=== PATIENT | female | born 1960 | race American Indian/Alaskan Native ===

== ENCOUNTER 2016-11-18 03:14 | Inpatient (IN) | payer MEDICARE, OTHER ==
[2016-11-18] MEDS ORDERED: Morphine 2 mg/ml ISec IVP STA ×2 (04:04→06:11)
[2016-11-18] MEDS ORDERED: Nitroglycerin 2% Ointment Foilpak UD TOP STA (04:04)
--- NOTE | 2016-11-18 04:04 | ED PDOC ---
Arrival/HPI - General Chief Complaint: Chest Pain Time Seen by Provider: 11/18/16 03:25 Historian: Patient - History of Present Illness Narrative History of Present Illness (Text): 11/18/16 04:03 Aleta Tripp is a 56 year old female, whose past medical history includes hypertension, hypothyroidism, and spinal stenosis, who presents to the ED complaining of chest pain. Patient states she has been experiencing intermittent mid-sternal chest pain for the past 3 days. Patient reports a history of tobacco use but denies any family history of CAD. Patient denies shortness of breath, abdominal pain, nausea, vomiting, back pain, neck pain, headache, dizziness,or any other complaints. PMD: Dr. Gabriel Dover Pain Management: Dr. Ruiz Time/Duration: < week (3 days) Symptom Onset: Gradual Symptom Course: Unchanged, Intermittent Activities at Onset: Light Context: Home Past Medical History - Provider Review Nursing Documentation Reviewed: Yes - Infectious Disease Hx of Infectious Diseases: None - Reproductive Menopause: No - Cardiac Hx Hypertension: Yes - Endocrine/Metabolic Hx Hypothyroidism: Yes - Musculoskeletal/Rheumatological Hx Back Pain: Yes Hx Spinal Stenosis: Yes - Psychiatric Hx Substance Use: No Family/Social History - Physician Review Nursing Documentation Reviewed: Yes Family/Social History: Unknown Family HX Smoking Status: Light Smoker < 10 Cigarettes Daily Hx Alcohol Use: No Hx Substance Use: No Allergies/Home Meds Allergies/Adverse Reactions: Allergies No Known Allergies Allergy (Verified 10/16/15 20:38) Home Medications: Home Meds Medication Instructions Recorded Confirmed Gabapentin [Neurontin] 400 mg PO DAILY 10/16/15 11/18/16 Levothyroxine [Synthroid] 50 mcg PO DAILY 10/16/15 11/18/16 Nebivolol HCl [Bystolic] 2.5 mg PO DAILY 10/16/15 11/18/16 Oxycodone HCl [Roxicodone] 15 mg PO QID 11/18/16 11/18/16 oxyCODONE [oxyCONTIN Extended 40 mg PO BID 11/18/16 11/18/16 Release Tab] Review of Systems - Physician Review All systems were reviewed & negative as marked: Yes - Review of Systems Constitutional: Normal. absent: Fevers Eyes: Normal ENT: Normal Respiratory: Normal. absent: SOB, Cough Cardiovascular: Chest Pain Gastrointestinal: Normal. absent: Abdominal Pain, Diarrhea, Nausea, Vomiting Genitourinary Female: Normal. absent: Dysuria, Frequency, Hematuria, Urine Output Changes Musculoskeletal: Normal. absent: Back Pain, Neck Pain Skin: Normal. absent: Rash Neurological: Normal. absent: Headache, Dizziness Endocrine: Normal Hemo/Lymphatic: Normal Psychiatric: Normal Physical Exam Vital Signs Reviewed: Yes Vital Signs Temp Pulse Resp BP Pulse Ox 11/18/16 03:14 97.9 F 70 18 152/93 H 95 Temperature: Afebrile Blood Pressure: Hypertensive Pulse: Regular Respiratory Rate: Normal Appearance: Positive for: Well-Appearing, Non-Toxic, Comfortable Pain Distress: None Mental Status: Positive for: Alert and Oriented X 3 - Systems Exam Head: Present: Atraumatic, Normocephalic Pupils: Present: PERRL Extroacular Muscles: Present: EOMI Conjunctiva: Present: Normal Mouth: Present: Moist Mucous Membranes Neck: Present: Normal Range of Motion Respiratory/Chest: Present: Clear to Auscultation, Good Air Exchange. No: Respiratory Distress, Accessory Muscle Use Cardiovascular: Present: Regular Rate and Rhythm, Normal S1, S2. No: Murmurs Abdomen: Present: Normal Bowel Sounds. No: Tenderness, Distention, Peritoneal Signs Back: Present: Normal Inspection Upper Extremity: Present: Normal Inspection. No: Cyanosis, Edema Lower Extremity: Present: Normal Inspection. No: Edema Neurological: Present: GCS=15, CN II-XII Intact, Speech Normal Skin: Present: Warm, Dry, Normal Color. No: Rashes Psychiatric: Present: Alert, Oriented x 3, Normal Insight, Normal Concentration Medical Decision Making ED Course and Treatment: 11/18/16 04:03 Impression: 56 year old female c/o chest pain for 3 days. Plan: -- EKG -- CXR -- Labs, cardiac enzymes -- Aspirin -- Nitroglycerin -- Morphine -- Reassess and disposition Progress Notes: Reviewed EKG, NSR at [address]/T wave changes anteriorly. 11/18/16 05:02 Reviewed radiology, CXR shows no acute processes. 11/18/16 06:54 Case was d/w PMD .Accepts pt. to his service. - Lab Interpretations Lab Results: 11/18/16 04:25 11/18/16 04:25 Lab Results 11/18/16 04:25: WBC 18.2 H, RBC 5.22, Hgb 15.0, Hct 44.2, MCV 84.7, MCH 28.7, MCHC 33.9, RDW 13.8, Plt Count 335, MPV 9.7 11/18/16 04:25: Sodium 139, Potassium 4.1, Chloride 96 L, Carbon Dioxide 32, Anion Gap 15, BUN 10, Creatinine 0.6, Est GFR ( Amer) > 60, Est GFR (Non- Af Amer) > 60, Random Glucose 161 H, Calcium 9.9, Total Bilirubin 0.9, AST 26, ALT 35, Alkaline Phosphatase 157 H, Lactate Dehydrogenase 435, Total Creatine Kinase 40, Troponin I < 0.01, Total Protein 8.5 H, Albumin 4.5, Globulin 4.0, Albumin/Globulin Ratio 1.1 11/18/16 04:25: PT 12.4 H, INR 1.15 H, APTT 29.5 I have reviewed the lab results: Yes - RAD Interpretation Radiology Orders: 11/18/16 04:03 CHEST PORTABLE [RAD] Stat 11/18/16 05:32 ABDOMEN COMPLETE [US] Stat Tick Eradicator: ED Physician - EKG Interpretation Interpreted by ED Physician: Yes Type: 12 lead EKG - Medication Orders Current Medication Orders: Metronidazole (Flagyl) 500 mg in 100 mls @ 100 mls/hr IVPB STAT STA PRN Reason: Protocol Stop: 11/18/16 07:45 Ceftriaxone Sodium (Rocephin 1 Gram Ivpb) 100 mls @ 200 mls/hr IV ONCE STA PRN Reason: Protocol Stop: 11/18/16 07:15 Discontinued Medications Aspirin (Aspirin) 325 mg PO ONCE STA Stop: 11/18/16 04:05 Last Admin: 11/18/16 04:30 Dose: 325 mg Morphine Sulfate (Morphine) 2 mg IVP STAT STA Stop: 11/18/16 04:05 Last Admin: 11/18/16 04:30 Dose: 2 mg Morphine Sulfate (Morphine) 2 mg IVP STAT STA Stop: 11/18/16 06:12 Last Admin: 11/18/16 06:26 Dose: 2 mg Nitroglycerin (Nitro-Bid 2% Oint) 1 ea TOP ONCE STA Stop: 11/18/16 04:05 Last Admin: 11/18/16 04:30 Dose: 1 ea Ondansetron HCl (Zofran Inj) Confirm Administered Dose 4 mg .ROUTE .STK-MED ONE Stop: 11/18/16 05:22 Last Admin: 11/18/16 05:21 Dose: 4 mg - Scribe Statement The provider has reviewed the documentation as recorded by the Williamsibe Bhavna Pulido All medical record entries made by the Williamsibfrancy were at my direction and personally dictated by me. I have reviewed the chart and agree that the record accurately reflects my personal performance of the history, physical exam, medical decision making, and the department course for this patient. I have also personally directed, reviewed, and agree with the discharge instructions and disposition. Disposition/Present on Arrival - Present on Arrival Any Indicators Present on Arrival: No History of DVT/PE: No History of Uncontrolled Diabetes: No Urinary Catheter: No History of Decub. Ulcer: No History Surgical Site Infection Following: None - Disposition Have Diagnosis and Disposition been Completed?: Yes Diagnosis: Chest pain, Abdominal pain Disposition: HOSPITALIZED Disposition Time: 06:54 Patient Plan: Admission Condition: STABLE Discharge Instructions (ExitCare): Chest Pain (ED) Forms: [employer] (Arabic)
[2016-11-18 04:41] LABS: HEMATOCRIT 44.2 % (36.0-48.0); MEAN CELL VOLUME 84.7 fl (80.0-105.0); MEAN CORPUSCULAR HEMOGLOBIN 28.7 pg (25.0-35.0); MEAN CORPUSCULAR HGB CONC 33.9 g/dl (31.0-37.0); MEAN PLATELET VOLUME 9.7 fl (7.0-11.0); RED CELL DISTRIBUTION WIDTH 13.8 % (11.5-14.5); WHITE BLOOD COUNT 18.2 10^3/ul (4.5-11.0)
[2016-11-18 04:42] LABS: ALB/GLOB RATIO 1.1 (1.1-1.8); ALKALINE PHOSPHATASE 157 U/L (38-126); ALT/SGPT 35 U/L (7-56); AST/SGOT 26 U/L (14-36); BILIRUBIN,TOTAL 0.9 mg/dL (0.2-1.3); BLOOD UREA NITROGEN 10 mg/dL (7-21); CALCIUM 9.9 mg/dL (8.4-10.5); CARBON DIOXIDE 32 mmol/L (21-33); CHLORIDE 96 mmol/L (98-107); GFR AFRICAN-AMERICAN > 60; GLUCOSE,RANDOM 161 mg/dL (70-110); INR 1.15 (0.93-1.08); PARTIAL THROMBOPLASTIN TIME 29.5 Seconds (23.7-30.8); POTASSIUM 4.1 mmol/L (3.6-5.0); SODIUM 139 mmol/L (132-148); TOTAL PROTEIN 8.5 g/dL (5.8-8.3)
[2016-11-18 04:55] LABS: TROPONIN I < 0.01 ng/mL
[2016-11-18] MEDS ORDERED: cefTRIAXone 1 gm 1 GM/100 ML BAG IV STA (06:46)
[2016-11-18] MEDS ORDERED: metroNIDAZOLE IV 500 mg/100 ml 500 MG/100 ML BAG IVPB STA (06:46)
--- NOTE | 2016-11-18 06:50 | US ---
EXAM: US Abdomen Complete EXAM DATE/TIME: 11/18/2016 5:32 AM CLINICAL HISTORY: 56 years old, female; Pain; Abdominal pain; Generalized; Additional info: Upper abdominal/chest pain TECHNIQUE: Real-time ultrasound of the abdomen (complete) with image documentation. COMPARISON: No relevant prior studies available. FINDINGS: There is a positive sonographic Gonzalez's sign per development technologist. There is a large hyperechoic area within the gallbladder paralleling the wall. There appears to be some degree of shadowing on a few images suggesting possible calcific component. While it could represent a combination of sludge and intermixed tiny calculi, the borders appear more rounded that normally seen with sludge raising the possibility of underlying lesion. There are punctate areas of flow demonstrated. The common bile duct measures 6 mm which is within normal limits. The liver is increased in echogenicity consistent with fatty infiltration. The spleen is normal and measures 10 cm. The pancreas is suboptimally visualized. No hydronephrosis. Both kidneys measure approximately 10 cm in length. The IVC is visualized. The visualized portions of the aorta are normal. IMPRESSION: Hyperechoic material within the gallbladder as discussed above. Differential diagnosis would include sludge ball versus an actual lesion. MRCP may be helpful assuming there are no prior studies for correlation.
[2016-11-18] MEDS ORDERED: HYDROmorphone 1 mg/ml ISec IVP STA (07:09)
[2016-11-18] MEDS ORDERED: HYDROmorphone 1 mg/ml ISec ONE (07:13)
--- NOTE | 2016-11-18 07:59 | RAD ---
HISTORY: pain COMPARISON: No prior. FINDINGS: LUNGS: No active pulmonary disease. PLEURA: No significant pleural effusion identified, no pneumothorax apparent. CARDIOVASCULAR: Normal. OSSEOUS STRUCTURES: Gottlieb rods in thoracolumbar spine. Thoracic dextroscoliosis. VISUALIZED UPPER ABDOMEN: Normal. OTHER FINDINGS: None. IMPRESSION: No active disease.
--- NOTE | 2016-11-18 09:43 | CP.PCM.CON ---
History of Present Illness - History of Present Illness History of Present Illness: General Surgery Consult note for Dr. Sandhu 56F presents with midsternal chest pain for three days. Patient states the pain is located at midsternal, midepigastric, RUQ, and LUQ pain. Patient admits to subjective fever and chills. Vomiting at home, an episode of vomiting in ED. Non -bloody, non-bilious vomiting. Patient admits to nausea. Denies headaches, dizziness, SOB. Last meal was Friday. Positive sonographic Gonzalez's sign on abdominal US with hyperechoic area and gallbladder sludge. Patient is getting HIDA. PMH: HTN, hypothyroidism, spinal stenosis, scoliosis Surgical hx: esdras placement for spinal alignment, hysterectomy Social Hx: smoker FHx: mother has pancreatic cancer, brother from cancer. Allergies: NKDA PMD: Dr. Gabriel Dover Pain Management: Dr. Ruiz Review of Systems - Constitutional Constitutional: As Per HPI Past Patient History - Infectious Disease Hx of Infectious Diseases: None - Past Social History Smoking Status: Light Smoker < 10 Cigarettes Daily - CARDIAC Hx Hypertension: Yes - ENDOCRINE/METABOLIC Hx Hypothyroidism: Yes - MUSCULOSKELETAL/RHEUMATOLOGICAL Hx Back Pain: Yes Hx Spinal Stenosis: Yes - PSYCHIATRIC Hx Substance Use: No - SURGICAL HISTORY Hx Surgeries: Yes Meds Allergies/Adverse Reactions: Allergies Allergy/AdvReac Type Severity Reaction Status Date / Time No Known Allergies Allergy Verified 10/16/15 20:38 - Medications Medications: Current Medications Hydromorphone HCl (Dilaudid) 1 mg IVP Q4H PRN PRN Reason: Pain, severe (8-10) Metronidazole (Flagyl) 500 mg in 100 mls @ 100 mls/hr IVPB Q8 RENEE PRN Reason: Protocol Ceftriaxone Sodium (Rocephin 1 Gram Ivpb) 1 gm in 100 mls @ 100 mls/hr IVPB DAILY RENEE PRN Reason: Protocol Ondansetron HCl (Zofran Inj) 4 mg IVP STAT PRN PRN Reason: Nausea/Vomiting Stop: 11/20/16 08:24 Physical Exam - Constitutional Appears: No Acute Distress - Head Exam Head Exam: NORMAL INSPECTION - Eye Exam Eye Exam: EOMI, Normal appearance - ENT Exam ENT Exam: Mucous Membranes Moist - Respiratory Exam Respiratory Exam: NORMAL BREATHING PATTERN. absent: Accessory Muscle Use, Respiratory Distress - Cardiovascular Exam Cardiovascular Exam: REGULAR RHYTHM. absent: Bradycardia, Tachycardia - GI/Abdominal Exam GI & Abdominal Exam: Guarding, Tenderness. absent: Rebound, Rigid Additional comments: epigastric, RUQ, LUQ pain + gonzalez's sign - Extremities Exam Extremities exam: Positive for: full ROM, normal inspection. Negative for: pedal edema - Neurological Exam Neurological exam: Alert, Normal Gait, Oriented x3 - Psychiatric Exam Psychiatric exam: Normal Affect, Normal Mood - Skin Skin Exam: Dry, Intact, Normal Color, Warm Results - Vital Signs Recent Vital Signs: Last Vital Signs Temp 97.7 F 11/18/16 07:58 Pulse 55 L 11/18/16 07:58 Resp 18 11/18/16 07:58 BP 151/77 H 11/18/16 07:58 Pulse Ox 98 11/18/16 07:58 - Labs Result Diagrams: 11/18/16 04:25 11/18/16 04:25 Assessment & Plan - Assessment and Plan (Free Text) Assessment: 56F presents with cholecystitis. PMH HTN, hypothyroidism, and spinal stenosis Plan: schedule for cholecystectomy f/u AM Labs c/w abx c/w pain management c/w medical management for hypothyroidism f/u HIDA results d/w Dr. Edson Cornejo DO PGY1 - Date & Time Date: 11/18/16 Time: 09:49
[2016-11-18] MEDS: cefTRIAXone 1 gm 1 GM/100 ML BAG IVPB SCH (10:08)
[2016-11-18 11:10] LABS: CHOLESTEROL 189 mg/dL (130-200); LIPASE 42 U/L (23-300)
[2016-11-18 11:12] LABS: BASO # 0.01 K/mm3 (0.0-2.0); GRAN # 21.21 (1.4-6.5); GRAN % 90.6 % (50.0-68.0); HEMATOCRIT 45.4 % (36.0-48.0); LYMPH # 0.9 (1.2-3.4); LYMPH % 3.7 % (22.0-35.0); MEAN CELL VOLUME 84.5 fl (80.0-105.0); MEAN CORPUSCULAR HEMOGLOBIN 28.9 pg (25.0-35.0); MEAN CORPUSCULAR HGB CONC 34.1 g/dl (31.0-37.0); MONO # 1.3 (0.1-0.6); MONO % 5.7 % (1.0-6.0); PLATELET COUNT 348 10^3/uL (120.0-450.0); RED CELL DISTRIBUTION WIDTH 13.8 % (11.5-14.5); WHITE BLOOD COUNT 23.4 10^3/ul (4.5-11.0)
--- NOTE | 2016-11-18 11:22 | CARD ---
APPROVED REPORT EKG Measurement Heart [id number] CT [id number] <Conclusion> Normal sinus rhythm Possible Left atrial enlargement ST & T wave abnormality, consider anterior ischemia Abnormal ECG
[2016-11-18] MEDS: HYDROmorphone 1 mg/ml ISec IVP PRN ×2 (11:23→15:24)
[2016-11-18] MEDS: Sodium Chloride 0.9% 1,000 ML IV SCH (12:00)
[2016-11-18 12:08] LABS: NEUTROPHIL 93 % (50.0-70.0); PLATELET ESTIMATE NORMAL (NORMAL)
[2016-11-18 12:09] LABS: ANISOCYTOSIS SLIGHT
[2016-11-18 13:10] VITALS: BMI 33.2
[2016-11-18] MEDS ORDERED: Pneumococcal 23-Valent Vaccine IM ONE (13:10)
[2016-11-18] MEDS: metroNIDAZOLE IV 500 mg/100 ml 500 MG/100 ML BAG IVPB SCH (13:45)
--- NOTE | 2016-11-18 14:16 | NM ---
PROCEDURE: Nuclear Medicine Hepatobiliary Scan HISTORY: abdominal pain COMPARISON: 11/18/2016 ultrasound TECHNIQUE: 6.8 mCi of technetium 99m Mebrofenin was administered intravenously. Planar images of the abdomen were obtained at 5 min intervals to 60 mins. Delayed images were also obtained. FINDINGS: LIVER: Timely and homogenous uptake. COMMON BILE DUCT: identified at 30 mins. GALLBLADDER: Not identified even on delayed images SMALL BOWEL: Identified at 45 mins. IMPRESSION: The gallbladder is not visualized even on delayed images. The finding is suspicious for acute cholecystitis.
[2016-11-18] MEDS ORDERED: cefTRIAXone (Rocephin) 1 gm Inj ONE (16:24)
[2016-11-18] MEDS ORDERED: Bupivacaine 0.5% Inj(30mL) ONE (16:24)
[2016-11-18] MEDS ORDERED: Iohexol 240 (50 ml) ONE (16:24)
[2016-11-18] MEDS ORDERED: Midazolam 2 MG/2 ML VIAL ONE (19:18)
[2016-11-18] MEDS ORDERED: Succinylcholine 200 mg/10 ml Inj IV ONE (19:18)
[2016-11-18] MEDS ORDERED: Propofol 10 mg/ml Inj (20 ML) ONE (19:18)
[2016-11-18] MEDS ORDERED: Lactated Ringer's 1,000 ML IV SCH ×2 (19:28→22:13)
[2016-11-18] MEDS ORDERED: HYDROmorphone 0.5 mg/0.5 ml ISec IVP PRN ×2 (19:28→22:13)
[2016-11-18] MEDS ORDERED: metroNIDAZOLE IV 500 mg/100 ml 500 MG/100 ML BAG ONE (19:44)
[2016-11-18] MEDS ORDERED: cefTRIAXone (Rocephin) 1 gm Inj IVPB ONE (19:45)
[2016-11-18] MEDS ORDERED: MetroNIDAZOLE 500 mg/100 ml IVPB ONE (19:45)
[2016-11-18] MEDS ORDERED: Bupivacaine 0.5% Inj(30mL) IJ ONE ×2 (19:50→21:45)
[2016-11-18] MEDS ORDERED: Neostigmine Methylsulfate 3mg/3ml Syringe IV ONE (21:21)
--- NOTE | 2016-11-18 22:22 | PCM.SURG1 ---
Surgeon's Initial Post Op Note - Surgeon's Notes Surgeon: Dr. Sandhu Labor Relations Analyst: Dr. Hairston PGY-2, Dr. Cornejo PGY-1 Type of Anesthesia: General Endo Anesthesia Administered By: Dr. Lopez Pre-Operative Diagnosis: acute cholecystitis Operative Findings: necrotic gallbladder. see operative report Post-Operative Diagnosis: see operative report Operation Performed: laparoscopic cholecystectomy converted to open cholecystectomy Specimen/Specimens Removed: gallbladder Estimated Blood Loss: EBL {In ML}: 75 Blood Products Given: N/A Drains Used: Francisco Post-Op Condition: Good Date of Surgery/Procedure: 11/18/16 Time of Surgery/Procedure: 19:44
--- NOTE | 2016-11-18 23:38 | HP ---
HISTORY OF PRESENT ILLNESS: A 56-year-old white female admitted to the hospital with abdominal pain. The patient has a history of back disorder, sees a pain management doctor. She has history of hypertension, hypothyroidism, spinal stenosis. She is on chronic pain medication from Dr. Ruiz. The patient came to the hospital complaining of intermittent chest pain and also abdominal pain. She was found to have gallstones and positive Gonzalez's sign. LABORATORY DATA: On this patient revealed an 18,200 white count with left shift. Her sugar was 161. Her alk phos was 157, slightly elevated. Total protein is elevated at 8.5. Troponins were negative initially. Her ultrasound was read as with hyperechoic material within the gallbladder, sludge versus actual lesion, positive Gonzalez's sign on ultrasound. Chest x-ray was normal. PHYSICAL EXAMINATION VITAL SIGNS: Showed a temperature 97.7, blood pressure 151/77, an O2 sat of 98, respiratory rate is normal. GENERAL: Shows a well-developed, well-nourished white female in minimal distress. HEENT: Essentially within normal limits. Sclerae are clear. SKIN: Non-icteric, non-jaundiced. CHEST: Clear to auscultation and percussion. HEART: Reveals sinus rhythm. ABDOMEN: Minimally tender in the right upper quadrant. There are no masses palpable. EXTREMITIES: Without cyanosis, clubbing, or edema. NEUROLOGIC: Sensation grossly intact. IMPRESSION AND PLAN: Elevated white count. Chest and abdominal pain. Positive Gonzalez's sign. Rule out acute cholecystitis. Continue to follow with serial troponins, first one negative. Dom Dover MD
[2016-11-19] MEDS: Sodium Chloride 0.9% 1,000 ML IV SCH ×7 (00:08→22:57)
[2016-11-19] MEDS: HYDROmorphone 2 mg/ml ISec IVP PRN ×6 (01:19→20:50)
[2016-11-19] MEDS ORDERED: metroNIDAZOLE IV 500 mg in 100 ML IVPB SCH (01:45)
--- NOTE | 2016-11-19 08:01 | CP.PCM.PN ---
Subjective - Date & Time of Evaluation Date of Evaluation: 11/19/16 Time of Evaluation: 07:58 - Subjective Subjective: General Surgery progress note for Dr. Sandhu PT S&E at bedside. Admits to pain. Patient made aware of breakthrough pain order. Patient states she hasn't been able to void since the procedure. Admits to suprapubic pain and right upper quadrant pain. Bladder scan ordered. Placement of farrell if >350 or if Patient cannot void. Objective - Vital Signs/Intake and Output Vital Signs (last 24 hours): Temp Pulse Resp BP Pulse Ox 98.5 F 84 20 153/97 H 92 L 11/19/16 06:00 11/19/16 06:00 11/19/16 06:00 11/19/16 06:00 11/19/16 06:00 Intake and Output: 11/19/16 11/19/16 06:59 18:59 Intake Total 875 Output Total 0 Balance 875 - Medications Medications: Current Medications Acetaminophen (Tylenol 325mg Tab) 975 mg PO Q8H [facility] Last Admin: 11/19/16 05:44 Dose: Not Given Hydromorphone HCl (Dilaudid) 1.5 mg IVP Q3H PRN PRN Reason: Pain, moderate (4-7) Last Admin: 11/19/16 05:46 Dose: 1.5 mg Ceftriaxone Sodium (Rocephin 1 Gram Ivpb) 1 gm in 100 mls @ 100 mls/hr IVPB DAILY [facility] PRN Reason: Protocol Last Admin: 11/18/16 10:08 Dose: Not Given Sodium Chloride (Sodium Chloride 0.9%) 1,000 mls @ 125 mls/hr IV .Q8H [facility] Last Admin: 11/19/16 00:08 Dose: 125 mls/hr Metronidazole (Flagyl) 500 mg in 100 mls @ 100 mls/hr IVPB Q8 RENEE PRN Reason: Protocol Ondansetron HCl (Zofran Inj) 4 mg IVP STAT PRN PRN Reason: Nausea/Vomiting Stop: 11/20/16 08:24 Last Admin: 11/18/16 13:41 Dose: 4 mg Ondansetron HCl (Zofran Inj) 4 mg IVP ONCE PRN PRN Reason: Nausea/Vomiting - Labs Labs: 11/18/16 10:18 PT 12.4 Seconds (9.9-11.8) H 11/18/16 04:25 INR 1.15 (0.93-1.08) H 11/18/16 04:25 APTT 29.5 Seconds (23.7-30.8) 11/18/16 04:25 - Constitutional Appears: No Acute Distress - Head Exam Head Exam: NORMAL INSPECTION - Eye Exam Eye Exam: EOMI, Normal appearance - ENT Exam ENT Exam: Mucous Membranes Moist - Neck Exam Neck Exam: Full ROM, Normal Inspection - Respiratory Exam Respiratory Exam: Clear to Ausculation Bilateral, NORMAL BREATHING PATTERN. absent: Accessory Muscle Use, Respiratory Distress - Cardiovascular Exam Cardiovascular Exam: REGULAR RHYTHM. absent: Bradycardia, Tachycardia - GI/Abdominal Exam GI & Abdominal Exam: Soft, Tenderness Additional comments: yuliana on right site of abdomen. 10cc serosanguinous drainage dressings c/di/i - Extremities Exam Extremities Exam: Full ROM, Normal Inspection. absent: Joint Swelling, Pedal Edema - Neurological Exam Neurological Exam: Alert, Awake, Oriented x3 - Psychiatric Exam Psychiatric exam: Normal Affect, Normal Mood - Skin Skin Exam: Dry, Intact, Normal Color, Warm Assessment and Plan - Assessment and Plan (Free Text) Assessment: 56 F cholecystitis s/p laparoscopic converted to open cholecystectomy Plan: Bladder scan ordered. Placement of farrell if >350 or if Patient cannot void. c/w abx c/w pain management c/w medical management Ceci Cornejo DO PGY1
[2016-11-19] MEDS: metroNIDAZOLE IV 500 mg/100 ml 500 MG/100 ML BAG IVPB SCH ×3 (09:31→21:08)
[2016-11-19 11:55] LABS: BASO # 0.01 K/mm3 (0.0-2.0); GRAN # 21.81 (1.4-6.5); GRAN % 89.3 % (50.0-68.0); HEMATOCRIT 39.6 % (36.0-48.0); LYMPH # 1.1 (1.2-3.4); LYMPH % 4.5 % (22.0-35.0); MEAN CELL VOLUME 84.3 fl (80.0-105.0); MEAN CORPUSCULAR HEMOGLOBIN 28.1 pg (25.0-35.0); MEAN CORPUSCULAR HGB CONC 33.3 g/dl (31.0-37.0); MEAN PLATELET VOLUME 9.7 fl (7.0-11.0); MONO # 1.5 (0.1-0.6); MONO % 6.2 % (1.0-6.0); WHITE BLOOD COUNT 24.5 10^3/ul (4.5-11.0)
[2016-11-19 11:57] LABS: ALB/GLOB RATIO 1.1 (1.1-1.8); ALKALINE PHOSPHATASE 126 U/L (38-126); ALT/SGPT 38 U/L (7-56); AST/SGOT 40 U/L (14-36); BILIRUBIN,TOTAL 0.6 mg/dL (0.2-1.3); BLOOD UREA NITROGEN 14 mg/dL (7-21); CALCIUM 8.7 mg/dL (8.4-10.5); CARBON DIOXIDE 31 mmol/L (21-33); CHLORIDE 102 mmol/L (98-107); GFR AFRICAN-AMERICAN > 60; GLUCOSE,RANDOM 148 mg/dL (70-110); POTASSIUM 3.6 mmol/L (3.6-5.0); SODIUM 140 mmol/L (132-148); TOTAL PROTEIN 6.7 g/dL (5.8-8.3)
[2016-11-19] MEDS: Enoxaparin 40 mg Syringe SC SCH (12:13)
[2016-11-19] MEDS: cefTRIAXone 1 gm 1 GM/100 ML BAG IVPB SCH (12:18)
--- NOTE | 2016-11-19 21:55 | OP ---
PROCEDURE DATE: PREOPERATIVE DIAGNOSIS: Acute cholecystitis. POSTOPERATIVE DIAGNOSIS: Acute cholecystitis. OPERATION PERFORMED: Laparoscopic cholecystectomy, converted to open. DESCRIPTION OF PROCEDURE: In the operating room, the patient was identified by name, name of procedure, laterality, my name and the consent. The patient was moved up because of excruciating pain, right upper quadrant, positive HIDA, with an elevated white count. In the operating room, the patient was identified by name, name of procedure, laterality, my consent and after the successful timeout with the Mohan in place, a midline incision was made by the belly button. The abdomen was entered with a Veress needle followed by the Visiport. was a omentum cake in the right upper quadrant. There was free fluid over the liver and by the liver. A xiphoid 5 and two lateral 5s were placed. The abdomen was then unexplored, there was nothing else was untoward. The omentum was pulled down off the gallbladder, it was a very dense adhesion. Using blunt dissection and the Harmonic under direct vision, the omentum came down with difficulty. The gallbladder was emptied with a Veress needle and there was thick sludge noted, it was dark bile. The gallbladder was necrotic. The Prestige were used to pull up the fundus and eventually the infundibulum, during which time the gallbladder wall was entered and sucked out removing a large amount of sludge. Dissection down towards the triangle was more and more difficult as we went in. Eventually, very dense adhesions were seen posteriorly that could not be easily dissected. There was a swelling there that was probably the cystic duct, although disturbing was a bluish area more medially, which eventually I believe to be a stain from the necrosis. A little bit superior to that was another adhesion density, that was believed to be the cystic artery, multiple manipulations were used to increase the dissection ability; however, these were fruitless. Eventually, we started taking it down from above by using the cautery the gallbladder from liver bed. We were able to come down for the same 2 adhesions that we have seen before and could not easily get around them. Eventually, not being able to dissect, we failed to make progress and I consented to open. A Nemesio incision was made and the Bookwalter was used. The dissection quickly came down to the same issues we had laparoscopically. The superior one was cleaned first and was clearly dissected through an artery that was eventually clipped and divided. The inferior adhesion was in fact the infundibulum just adhesed down and dissection came down to a single structure going to the gallbladder that was clamped, divided, and tied. The area was copiously irrigated and dried. There was a lot of contamination. A Francisco was placed. The abdomen was copiously irrigated and dried. There was nothing untoward. No bleeding. No bile. An incision is closed after the umbilicus was closed under direct vision and closed with 2 layers Vicryl and Prolene. The subcutaneous tissue was closed with Vicryl. Skin was closed with joel. The patient was taken to the recovery room in good condition after the sponge and needle counts were declared correct. Lazaro Sandhu MD
[2016-11-19] MEDS ORDERED: Levothyroxine 125 MCG TAB PO STA (22:09)
[2016-11-19 22:39] LABS: ARTERIAL BLOOD GAS HCO3 31.3 mmol/L (21-28); ARTERIAL BLOOD GAS O2 CAPACITY 20.4 mL/dl (16-24); ARTERIAL BLOOD GAS O2 CONTENT 19.5 ML/dl (15-23); ARTERIAL BLOOD GAS PH 7.45 (7.35-7.45); ARTERIAL BLOOD HGB O2 SAT 92.7 % (95.0-98.0); CARBOXYHEMOGLOBIN 2.2 % (0.5-1.5); HHB 4.3 % (0-5); METHEMOGLOBIN 0.8 % (0.0-3.0)
--- NOTE | 2016-11-20 00:32 | CON ---
DATE: 11/19/2016 LOCATION: The patient was seen in room 266, bed 1. CHIEF COMPLAINT: Positive blood cultures x1 day duration. HISTORY OF PRESENT ILLNESS: This is a 56-year-old female with obesity with a BMI of 34 with chronic back pain syndrome, had back surgery years ago with rods, had scoliosis as a child, history of hypertension, hypothyroidism, history of spinal stenosis, history of hysterectomy, who was admitted with abdominal pain, found to have acute cholecystitis, was taken to the OR yesterday. Blood cultures were done and positive blood cultures of her gram-positive cocci. Infectious disease consultation was requested. The patient denies any fevers, any chills. She was having abdominal pain and no chest pain, shortness of breath, or cough. No fevers and no chills. No nausea or vomiting at this point and no dysuria or frequency. PAST MEDICAL HISTORY: Significant for chronic back pain syndrome, scoliosis, hypertension, hypothyroidism, and spinal stenosis. PAST SURGICAL HISTORY: Significant for surgery in the back many years ago with rods and hardware. The patient also had a hysterectomy. ALLERGIES: THE PATIENT HAS NO KNOWN ALLERGIES TO ANY ANTIBIOTICS. SOCIAL HISTORY: She lives with her daughter. They do have cats for a pet. MEDICATIONS AT HOME: Include the patient to be on Neurontin, gabapentin, oxycodone, Bystolic, levothyroxine, Zanaflex, and oxycodone. PHYSICAL EXAMINATION: GENERAL: She is in bed, answering questions appropriately, nontoxic. VITAL SIGNS: Temperature is 98, she never had any fevers in the entire hospital stay, blood pressure is 160/90, respiratory rate of 20, and heart rate was up to 93. HEENT: Unremarkable. NECK: Supple. LUNGS: Decreased breath sounds. HEART: Normal S1 and S2. ABDOMEN: The patient has a primary dressing and drainage tubes present. No rebound. No guarding. No masses. LABORATORY EXAMINATION: Reveals the patient's white count of 18,000, it is upto 24,000 today, hemoglobin of 15 and platelets of 335. There is 89% granulocytosis and coagulation is noted. Chemistries reveals a BUN of 14, creatinine of 0.7, elevated glucose of 148, and alk phos is 157. Microbiology reveals gram-positive cocci, and it was identified as a coag-negative staph by PNA FISH in one part, the other part reports as a gram-positive cocci, no further identification and the patient also had an ultrasound of the abdomen done, which is noted and there was a positive Gonzalez sign on the ultrasound. The patient also had a HIDA scan done. ASSESSMENT AND PLAN: This is a 56-year-old female with chronic back pain, scoliosis, hypertension, hypothyroidism, spinal stenosis, admitted with sepsis with acute cholecystectomy, status post open cholecystectomy. The patient was admitted with acute cholecystitis now status post open cholecystectomy with postop procedure day #1 with a coag-negative staph bacteremia most consistent with a contamination, currently on Rocephin and Flagyl. We will follow the WBC count. We will order repeat blood cultures, and we will order an HIV because of her age and a hemoglobin A1c also. We will follow closely with you. Pending repeat blood cultures, further identification with a gram-positive cocci, and her current culture, I suspected coag-negative staph, most consistent with a contamination. She has no new back pain and no evidence of infection in the back, and we will follow with WBC count. Dutch Saavedra MD
[2016-11-20] MEDS: HYDROmorphone 2 mg/ml ISec IVP PRN ×7 (00:49→23:46)
--- NOTE | 2016-11-20 01:03 | PN ---
SUBJECTIVE: A 56-year-old white female with history of chronic back pain, on pain management recently admitted to the hospital with acute cholelithiasis and cholecystitis. The patient was taken to the OR by Dr. Sandhu yesterday. She is postop day #1 today. She did have urinary retention. A Mohan catheter was placed. The patient has been encouraged to attempt to void and to walk, ambulate. PHYSICAL EXAMINATION: VITAL SIGNS: Stable. Temperature is 98.5, blood pressure 153/97. LABORATORY DATA: Initial laboratory data on admission had an 18,000 white count, she is 24,500 today with a left shift. The patient is afebrile today. She did have a positive HIDA scan. Liver enzymes are within normal limits. Plan is to ambulate. Continue IV antibiotics eventually to control pain and eventually to discharge home when the patient is ambulatory, passing gas, and able to urinate. Her abdomen was nondistended today, but there was no active bowel sounds. Dom Dover MD
[2016-11-20] MEDS: metroNIDAZOLE IV 500 mg/100 ml 500 MG/100 ML BAG IVPB SCH ×2 (05:15→13:44)
[2016-11-20] MEDS: Sodium Chloride 0.9% 1,000 ML IV SCH ×2 (06:25→15:35)
[2016-11-20 06:29] LABS: BASO # 0.01 K/mm3 (0.0-2.0); GRAN # 20.42 (1.4-6.5); GRAN % 86.6 % (50.0-68.0); HEMATOCRIT 41.8 % (36.0-48.0); LYMPH # 1.8 (1.2-3.4); LYMPH % 7.8 % (22.0-35.0); MEAN CELL VOLUME 84.8 fl (80.0-105.0); MEAN CORPUSCULAR HEMOGLOBIN 28.2 pg (25.0-35.0); MEAN CORPUSCULAR HGB CONC 33.3 g/dl (31.0-37.0); MEAN PLATELET VOLUME 9.7 fl (7.0-11.0); MONO # 1.3 (0.1-0.6); MONO % 5.6 % (1.0-6.0); RED CELL DISTRIBUTION WIDTH 14.5 % (11.5-14.5); WHITE BLOOD COUNT 23.6 10^3/ul (4.5-11.0)
[2016-11-20 06:51] LABS: BLOOD UREA NITROGEN 13 mg/dL (7-21); CALCIUM 8.9 mg/dL (8.4-10.5); CARBON DIOXIDE 29 mmol/L (21-33); CHLORIDE 101 mmol/L (98-107); GFR AFRICAN-AMERICAN > 60; GLUCOSE,RANDOM 123 mg/dL (70-110); MAGNESIUM 2.2 mg/dL (1.7-2.2); POTASSIUM 3.2 mmol/L (3.6-5.0); SODIUM 141 mmol/L (132-148)
[2016-11-20] MEDS ORDERED: Iodixanol 320 MG/ML 100 ML BOTTLE IV ONE (07:21)
--- NOTE | 2016-11-20 07:28 | CP.PCM.PN ---
Subjective - Date & Time of Evaluation Date of Evaluation: 11/20/16 Time of Evaluation: 07:17 - Subjective Subjective: pt is c/o sob is diaphoretic and bp is 189/ /97.pt is on oxycontin 40 mg po bid . has been recieving dilauded for pain . hr is 66. Objective - Vital Signs/Intake and Output Vital Signs (last 24 hours): Temp Pulse Resp BP Pulse Ox 98.4 F 65 20 185/96 H 95 11/20/16 06:00 11/20/16 06:17 11/20/16 06:00 11/20/16 06:17 11/20/16 06:00 Intake and Output: 11/20/16 11/20/16 06:59 18:59 Intake Total 2060 Output Total 1700 Balance 360 - Medications Medications: Current Medications Acetaminophen (Tylenol 325mg Tab) 975 mg PO Q8H [facility] Last Admin: 11/20/16 05:20 Dose: 975 mg Enoxaparin Sodium (Lovenox) 40 mg SC DAILY [facility] PRN Reason: Protocol Last Admin: 11/19/16 12:13 Dose: 40 mg Hydromorphone HCl (Dilaudid) 1.5 mg IVP Q3H PRN PRN Reason: Pain, moderate (4-7) Last Admin: 11/20/16 04:51 Dose: 1.5 mg Ceftriaxone Sodium (Rocephin 1 Gram Ivpb) 1 gm in 100 mls @ 100 mls/hr IVPB DAILY [facility] PRN Reason: Protocol Last Admin: 11/19/16 12:18 Dose: 100 mls/hr Sodium Chloride (Sodium Chloride 0.9%) 1,000 mls @ 125 mls/hr IV .Q8H [facility] Last Admin: 11/20/16 06:25 Dose: Not Given Metronidazole (Flagyl) 500 mg in 100 mls @ 100 mls/hr IVPB Q8 [facility] PRN Reason: Protocol Last Admin: 11/20/16 05:15 Dose: 100 mls/hr Ondansetron HCl (Zofran Inj) 4 mg IVP STAT PRN PRN Reason: Nausea/Vomiting Stop: 11/20/16 08:24 Last Admin: 11/19/16 23:22 Dose: 4 mg - Labs Labs: 11/20/16 06:00 11/20/16 06:00 PT 12.4 Seconds (9.9-11.8) H 11/18/16 04:25 INR 1.15 (0.93-1.08) H 11/18/16 04:25 APTT 29.5 Seconds (23.7-30.8) 11/18/16 04:25 - Constitutional Appears: Other (pt has mild sob .) - Head Exam Head Exam: NORMOCEPHALIC - Eye Exam Eye Exam: Normal appearance - ENT Exam ENT Exam: Mucous Membranes Moist - Neck Exam Neck Exam: Full ROM - Respiratory Exam Respiratory Exam: Clear to Ausculation Bilateral - Cardiovascular Exam Cardiovascular Exam: RRR, +S1, +S2 - GI/Abdominal Exam GI & Abdominal Exam: Soft, Tenderness - Rectal Exam Rectal Exam: Deferred - Neurological Exam Neurological Exam: Alert, Awake, CN II-XII Intact, Oriented x3 - Psychiatric Exam Psychiatric exam: Anxious - Skin Additional comments: fushed Assessment and Plan - Assessment and Plan (Free Text) Assessment: sob post cholycystectomy. htn. Plan: colonide 0.[address] angio PE protocol. ?DRUG withdrawl.
--- NOTE | 2016-11-20 07:36 | CP.PCM.PN ---
Subjective - Date & Time of Evaluation Date of Evaluation: 11/20/16 Time of Evaluation: 07:33 - Subjective Subjective: General Surgery Progress note for Dr. Sandhu PT S&E at bedside. Patient admits to vomiting. Per nursing, patient did not vomit. Voiding trial passed, farrell removed overnight. Patient continues to ask for pain medication. PT denies F/C. admits to nausea. Admits to abdominal pain. Patient states she hasn't ambulated. Encouraged to ambulate to pass gas and have BM. PAtient is told she will continue on clears because she was nauseas with soup. 24HR yuliana output: 25cc, serosanguinous Objective - Vital Signs/Intake and Output Vital Signs (last 24 hours): Temp Pulse Resp BP Pulse Ox 98.4 F 65 20 185/96 H 95 11/20/16 06:00 11/20/16 06:17 11/20/16 06:00 11/20/16 06:17 11/20/16 06:00 Intake and Output: 11/20/16 11/20/16 06:59 18:59 Intake Total 2060 Output Total 1700 Balance 360 - Medications Medications: Current Medications Acetaminophen (Tylenol 325mg Tab) 975 mg PO Q8H [facility] Last Admin: 11/20/16 05:20 Dose: 975 mg Enoxaparin Sodium (Lovenox) 40 mg SC DAILY [facility] PRN Reason: Protocol Last Admin: 11/19/16 12:13 Dose: 40 mg Hydromorphone HCl (Dilaudid) 1.5 mg IVP Q3H PRN PRN Reason: Pain, moderate (4-7) Last Admin: 11/20/16 04:51 Dose: 1.5 mg Ceftriaxone Sodium (Rocephin 1 Gram Ivpb) 1 gm in 100 mls @ 100 mls/hr IVPB DAILY [facility] PRN Reason: Protocol Last Admin: 11/19/16 12:18 Dose: 100 mls/hr Sodium Chloride (Sodium Chloride 0.9%) 1,000 mls @ 125 mls/hr IV .Q8H [facility] Last Admin: 11/20/16 06:25 Dose: Not Given Metronidazole (Flagyl) 500 mg in 100 mls @ 100 mls/hr IVPB Q8 [facility] PRN Reason: Protocol Last Admin: 11/20/16 05:15 Dose: 100 mls/hr Potassium Chloride (Potassium Chloride 20 Meq/100 Ml) 20 meq in 100 mls @ 50 mls/hr IVPB Q2H [facility] Stop: 11/20/16 11:44 Ondansetron HCl (Zofran Inj) 4 mg IVP STAT PRN PRN Reason: Nausea/Vomiting Stop: 11/20/16 08:24 Last Admin: 11/19/16 23:22 Dose: 4 mg - Labs Labs: 11/20/16 06:00 11/20/16 06:00 PT 12.4 Seconds (9.9-11.8) H 11/18/16 04:25 INR 1.15 (0.93-1.08) H 11/18/16 04:25 APTT 29.5 Seconds (23.7-30.8) 11/18/16 04:25 - Constitutional Appears: Non-toxic - Head Exam Head Exam: NORMAL INSPECTION - Eye Exam Eye Exam: EOMI, Normal appearance - ENT Exam ENT Exam: Mucous Membranes Moist - Neck Exam Neck Exam: Full ROM. absent: Tenderness - Respiratory Exam Respiratory Exam: Clear to Ausculation Bilateral, NORMAL BREATHING PATTERN. absent: Accessory Muscle Use, Respiratory Distress - Cardiovascular Exam Cardiovascular Exam: REGULAR RHYTHM. absent: Bradycardia, Tachycardia - GI/Abdominal Exam GI & Abdominal Exam: Soft, Normal Bowel Sounds. absent: Tenderness - Extremities Exam Extremities Exam: Full ROM, Normal Inspection - Neurological Exam Neurological Exam: Alert, Awake, Oriented x3 - Psychiatric Exam Psychiatric exam: Normal Affect, Normal Mood - Skin Skin Exam: Cyanosis, Dry, Intact, Normal Color, Warm Additional comments: incision site c/d/i no erythema, drainage, purulence, or induration Assessment and Plan - Assessment and Plan (Free Text) Assessment: 56 F cholecystitis s/p laparoscopic converted to open cholecystectomy POD#2 Plan: diet CLD c/w abx c/w current pain medication c/w current medical management monitor vitals monitor I/Os monitor yuliana output IS and ambulation monitor diet tolerance d/w Dr. Edson Cornejo, DO PGY1
--- NOTE | 2016-11-20 08:37 | CT ---
PROCEDURE: CT Chest with contrast (Pulmonary Angiogram) HISTORY: r/o pe COMPARISON: None available. TECHNIQUE: Axial computed tomography images were obtained of the chest in the pulmonary arterial phase of enhancement. Coronal and sagittal reformatted images were created and reviewed. Intravenous contrast dose: 100 mL Visipaque Radiation dose: Total exam DLP = 642 mGy-cm. This CT exam was performed using one or more of the following dose reduction techniques: Automated exposure control, adjustment of the mA and/or kV according to patient size, and/or use of iterative reconstruction technique. FINDINGS: PULMONARY ARTERIES: Unremarkable. No central or major segmental pulmonary embolism. Small peripheral subsegmental tiny pulmonary emboli not excluded. Most notable are posterior lobe consolidations atelectasis with or without infiltrate is probable. All peripheral endobronchial lesions cannot be excluded. No extrinsic compression masses or soft tissue pathology suggested Linear pleural/isiah fissural thickening. AORTA: No acute findings. No thoracic aortic aneurysm. LUNGS: Unremarkable. No nodule, mass or pulmonary consolidation. PLEURAL SPACES: Posterior minimal pleural thickening. Minimal pleural effusion. No pneuomothorax. HEART: cardiomegaly. No significant pericardial effusion. Coronary artery calcifications suspect LYMPH NODES: No lymphadenopathy. BONES, CHEST WALL: No fracture or destructive lesion Gottlieb rods in place and scoliosis noted OTHER FINDINGS: Unremarkable. IMPRESSION: No central or major segmental pulmonary emboli. Tiny more peripheral subsegmental emboli not excluded. Bilateral lower lobe consolidation with adjacent pleural thickening and trace pleural effusion. Primarily atelectatic changes with or without infiltrates at each lower lobe is favored. All peripheral and/or bronchial mucous plugs or other filling defects cannot be excluded. Strains a compression defects sting and any atelectasis suggested. Cardiomegaly. No aortic aneurysm. Coronary artery calcifications Scoliosis with Gottlieb esdras
[2016-11-20] MEDS: Levothyroxine 125 MCG TAB PO SCH (09:07)
[2016-11-20] MEDS: Enoxaparin 40 mg Syringe SC SCH (09:07)
[2016-11-20] MEDS: cefTRIAXone 1 gm 1 GM/100 ML BAG IVPB SCH (09:08)
--- NOTE | 2016-11-20 09:51 | CARD ---
APPROVED REPORT EKG Measurement Heart [id number] <Conclusion> Sinus bradycardia Possible Left atrial enlargement RSR' or QR pattern in V1 suggests right ventricular conduction delay Abnormal ECG
[2016-11-20] MEDS ORDERED: NEBIVOLOL HCL 10 MG PO SCH (10:00)
--- NOTE | 2016-11-20 11:25 | RAD ---
HISTORY: abdominal distention COMPARISON: No prior. FINDINGS: BOWEL: Normal. No obstruction. No free air. BONES: Scoliosis. Spinal rods. OTHER FINDINGS: There is contrast in the bladder and left renal collecting system. IMPRESSION: No active disease.
[2016-11-20] MEDS: POLYETHYLENE GLYCOL 3350 17 GM/Dose PACKET PO SCH (12:38)
[2016-11-20] MEDS: NEBIVOLOL HCL 10 MG PO SCH (12:38)
--- NOTE | 2016-11-20 13:24 | PN ---
DATE: SUBJECTIVE: This is a 56-year-old white female admitted in the hospital with acute cholecystitis and cholelithiasis. The patient is status post cholecystectomy. The patient still has no bowel sounds. Has not had a bowel movement. No flatus. She is passing the urine. She has some shortness of breath. Some diaphoresis last night. She was sent for a CT angiogram which showed only bilateral atelectasis. No evidence of PE. The patient has been encouraged to do some incentive spirometry, Duoneb and to ambulate. PHYSICAL EXAMINATION: HEART: Regular sinus rhythm. CHEST: Clear to auscultation and percussion. ABDOMEN: Distended. Bowel sounds are absent. LABORATORY DATA: The patient did have a markedly elevated white count which is slowly receding. She does have some blood cultures that are positive, possible contamination gram positive cocci. ASSESSMENT AND PLAN: We are waiting on confirmation by Dr. Saavedra whether this is contaminant or not. The patient will continue IV antibiotics, incentive spirometry, Duoneb, and ambulation. Dom Dover MD
[2016-11-20] MEDS: Albuterol-Ipratrop 3 mg / 0.5 (3 ml) UD IH SCH ×2 (13:54→21:57)
--- NOTE | 2016-11-20 17:11 | CP.PCM.PN ---
Subjective - Date & Time of Evaluation Date of Evaluation: 11/20/16 Time of Evaluation: 15:55 - Subjective Subjective: Patient is still having nausea, abdominal pain has improved, not in distress, no fevers overnight. Objective - Vital Signs/Intake and Output Vital Signs (last 24 hours): Temp Pulse Resp BP Pulse Ox 98.4 F 65 20 185/96 H 95 11/20/16 06:00 11/20/16 06:17 11/20/16 06:00 11/20/16 06:17 11/20/16 06:00 Intake and Output: 11/20/16 11/20/16 06:59 18:59 Intake Total 2060 Output Total 1700 Balance 360 - Medications Medications: Current Medications Acetaminophen (Tylenol 325mg Tab) 975 mg PO Q8H [facility] Last Admin: 11/20/16 05:20 Dose: 975 mg Albuterol/Ipratropium (Duoneb 3 Mg/0.5 Mg (3 Ml) Ud) 3 ml IH [id number] [facility] Docusate Sodium (Colace) 100 mg PO BID [facility] Last Admin: 11/20/16 09:09 Dose: 100 mg Enoxaparin Sodium (Lovenox) 40 mg SC DAILY [facility] PRN Reason: Protocol Last Admin: 11/20/16 09:07 Dose: 40 mg Famotidine (Pepcid) 20 mg PO 1000,2200 [facility] Hydromorphone HCl (Dilaudid) 1.5 mg IVP Q3H PRN PRN Reason: Pain, moderate (4-7) Last Admin: 11/20/16 08:36 Dose: 1.5 mg Ceftriaxone Sodium (Rocephin 1 Gram Ivpb) 1 gm in 100 mls @ 100 mls/hr IVPB DAILY [facility] PRN Reason: Protocol Last Admin: 11/20/16 09:08 Dose: 100 mls/hr Sodium Chloride (Sodium Chloride 0.9%) 1,000 mls @ 125 mls/hr IV .Q8H [facility] Last Admin: 11/20/16 06:25 Dose: Not Given Metronidazole (Flagyl) 500 mg in 100 mls @ 100 mls/hr IVPB Q8 [facility] PRN Reason: Protocol Last Admin: 11/20/16 05:15 Dose: 100 mls/hr Potassium Chloride (Potassium Chloride 20 Meq/100 Ml) 20 meq in 100 mls @ 50 mls/hr IVPB Q2H [facility] Stop: 11/20/16 11:44 Last Admin: 11/20/16 09:15 Dose: 50 mls/hr Levothyroxine Sodium (Synthroid) 125 mcg PO DAILY [facility] Last Admin: 11/20/16 09:07 Dose: 125 mcg Nebivolol Hcl [ (Bystolic] 10 Mg) 10 mg PO DAILY [facility] Ondansetron HCl (Zofran Inj) 4 mg IVP Q4H PRN PRN Reason: Nausea/Vomiting Last Admin: 11/20/16 09:28 Dose: 4 mg Polyethylene Glycol (Miralax) 17 gm PO DAILY [facility] - Labs Labs: 11/20/16 06:00 11/20/16 06:00 PT 12.4 Seconds (9.9-11.8) H 11/18/16 04:25 INR 1.15 (0.93-1.08) H 11/18/16 04:25 APTT 29.5 Seconds (23.7-30.8) 11/18/16 04:25 - Constitutional Appears: Non-toxic, No Acute Distress - Head Exam Head Exam: NORMAL INSPECTION - Neck Exam Neck Exam: absent: Meningismus - Respiratory Exam Respiratory Exam: Decreased Breath Sounds - Cardiovascular Exam Cardiovascular Exam: +S1, +S2 - GI/Abdominal Exam GI & Abdominal Exam: Soft. absent: Tenderness Assessment and Plan - Assessment and Plan (Free Text) Plan: Assessment acute cholecystitis S/P open cholecystectomy POD #2 Coagulase negative staph in blood cx, R/O contamination chronic back pain and scoliosis and spinal stenosis S/P rods and hardware placement many years ago HTN hypothyroidism S/P hysterectomy Plan Patient on Rocephin and Flagyl day 2 - patient is nauseated - will switch to Zosyn instead follow up repeat blood cx from yesterday; fluid cx are so far negative as well patient does not have new and worse back pain, making hardware on the back less likely source of coagulase negative staph in the blood will monitor and trend WBC count
[2016-11-20] MEDS: Piperacillin/Tazobact 3.375 gm 100 ML IVPB SCH ×2 (17:30→23:36)
--- NOTE | 2016-11-20 18:51 | CP.PCM.PN ---
Subjective - Date & Time of Evaluation Date of Evaluation: 11/20/16 Time of Evaluation: 18:50 - Subjective Subjective: This patient was seen in her room. Earlier I had ordered Clonidine 0.2 mg for BP 175/103. BP is checked one hour later which is 171/103.(20:15). She has no complaints now. Has headache earlier. Denies chest pain, sob, nausea, sweating,palpitation. [place] "Gasy" in stomach earlier. States that she had felt cold and clammy. ROS : Negative except as mentioned above. Medical record was reviewed. This 56 year old white woman was admitted with abdominal pain, intermittent chest pain,cholelithiasis,leukocytosis. Has PMH of HTN, hypothyroidism, spinal stenosis, back pain, obesity. Objective - Vital Signs/Intake and Output Vital Signs (last 24 hours): Temp Pulse Resp BP Pulse Ox 98.9 F 79 18 185/111 H 95 11/20/16 17:48 11/20/16 17:48 11/20/16 17:48 11/20/16 17:48 11/20/16 06:00 Intake and Output: 11/20/16 11/20/16 06:59 18:59 Intake Total 2060 Output Total 1700 Balance 360 - Medications Medications: Current Medications Acetaminophen (Tylenol 325mg Tab) 975 mg PO Q8H [facility] Last Admin: 11/20/16 15:34 Dose: 975 mg Albuterol/Ipratropium (Duoneb 3 Mg/0.5 Mg (3 Ml) Ud) 3 ml IH [id number] [facility] Last Admin: 11/20/16 13:54 Dose: 3 ml Docusate Sodium (Colace) 100 mg PO BID [facility] Last Admin: 11/20/16 17:24 Dose: 100 mg Enoxaparin Sodium (Lovenox) 40 mg SC DAILY [facility] PRN Reason: Protocol Last Admin: 11/20/16 09:07 Dose: 40 mg Famotidine (Pepcid) 20 mg PO 1000,2200 [facility] Last Admin: 11/20/16 12:42 Dose: Not Given Hydromorphone HCl (Dilaudid) 1.5 mg IVP Q3H PRN PRN Reason: Pain, moderate (4-7) Last Admin: 11/20/16 17:24 Dose: 1.5 mg Sodium Chloride (Sodium Chloride 0.9%) 1,000 mls @ 125 mls/hr IV .Q8H [facility] Last Admin: 11/20/16 15:35 Dose: 125 mls/hr Piperacillin Sod/Tazobactam Sod (Zosyn 3.375 In Ns 100ml) 100 mls @ 200 mls/hr IVPB Q6 [facility] PRN Reason: Protocol Stop: 11/27/16 18:01 Last Admin: 11/20/16 17:30 Dose: 200 mls/hr Levothyroxine Sodium (Synthroid) 125 mcg PO DAILY [facility] Last Admin: 11/20/16 09:07 Dose: 125 mcg Nebivolol Hcl [ (Bystolic] 10 Mg) 10 mg PO DAILY [facility] Last Admin: 11/20/16 12:38 Dose: 10 mg Ondansetron HCl (Zofran Inj) 4 mg IVP Q4H PRN PRN Reason: Nausea/Vomiting Last Admin: 11/20/16 17:24 Dose: 4 mg Polyethylene Glycol (Miralax) 17 gm PO DAILY [facility] Last Admin: 11/20/16 12:38 Dose: 17 gm - Labs Labs: 11/20/16 06:00 11/20/16 06:00 PT 12.4 Seconds (9.9-11.8) H 11/18/16 04:25 INR 1.15 (0.93-1.08) H 11/18/16 04:25 APTT 29.5 Seconds (23.7-30.8) 11/18/16 04:25 Micro Results 11/18/16 20:30 Bile Gram Stain - Final 11/18/16 20:30 Bile Body Fluid Culture - Preliminary NO GROWTH AFTER 24 HOURS 11/18/16 07:03 Blood Blood Culture - Preliminary Gram Positive Cocci 11/18/16 07:03 Blood Gram Stain - Final 11/18/16 07:09 Blood S.aureus & Coag-Neg Staph PNA FISH - Final 11/18/16 07:09 Blood Blood Culture - Preliminary Gram Positive Cocci 11/18/16 07:09 Blood Gram Stain - Final Most Recent Lab Values WBC 23.6 10^3/ul (4.5-11.0) H 11/20/16 06:00 RBC 4.93 10^6/uL (3.5-6.1) 11/20/16 06:00 Hgb 13.9 g/dL (12.0-16.0) 11/20/16 06:00 Hct 41.8 % (36.0-48.0) 11/20/16 06:00 MCV 84.8 fl (80.0-105.0) 11/20/16 06:00 MCH 28.2 pg (25.0-35.0) 11/20/16 06:00 MCHC 33.3 g/dl (31.0-37.0) 11/20/16 06:00 RDW 14.5 % (11.5-14.5) 11/20/16 06:00 Plt Count 350 10^3/uL (120.0-450.0) 11/20/16 06:00 MPV 9.7 fl (7.0-11.0) 11/20/16 06:00 Gran % 86.6 % (50.0-68.0) H 11/20/16 06:00 Lymph % (Auto) 7.8 % (22.0-35.0) L 11/20/16 06:00 Gray % (Auto) 5.6 % (1.0-6.0) 11/20/16 06:00 Eos % (Auto) 0.0 % (1.5-5.0) L 11/20/16 06:00 Baso % (Auto) 0.0 % (0.0-3.0) 11/20/16 06:00 Gran # 20.42 (1.4-6.5) H 11/20/16 06:00 Lymph # 1.8 (1.2-3.4) 11/20/16 06:00 Gray # 1.3 (0.1-0.6) H 11/20/16 06:00 Eos # 0.0 (0.0-0.7) 11/20/16 06:00 Baso # 0.01 K/mm3 (0.0-2.0) 11/20/16 06:00 Neutrophils % (Manual) 93 % (50.0-70.0) H 11/18/16 10:18 Lymphocytes % (Manual) 4 % (22.0-35.0) L 11/18/16 10:18 Monocytes % (Manual) 3 % (1.0-6.0) 11/18/16 10:18 Platelet Evaluation Normal (NORMAL) 11/18/16 10:18 Anisocytosis (manual) Slight 11/18/16 10:18 PT 12.4 Seconds (9.9-11.8) H 11/18/16 04:25 INR 1.15 (0.93-1.08) H 11/18/16 04:25 APTT 29.5 Seconds (23.7-30.8) 11/18/16 04:25 pCO2 45 mm/Hg (35-45) 11/19/16 22:36 pO2 63.0 mm/Hg (80-100) L 11/19/16 22:36 HCO3 31.3 mmol/L (21-28) H 11/19/16 22:36 ABG pH 7.45 (7.35-7.45) 11/19/16 22:36 ABG Total CO2 32.7 mmol.L (22-28) H 11/19/16 22:36 ABG O2 Saturation 95.6 % (95-98) 11/19/16 22:36 ABG O2 Content 19.5 ML/dl (15-23) 11/19/16 22:36 ABG Base Excess 6.3 mmol/L (-2.0-3.0) H 11/19/16 22:36 ABG Hemoglobin 15.0 g/dL (11.7-17.4) 11/19/16 22:36 ABG Carboxyhemoglobin 2.2 % (0.5-1.5) H 11/19/16 22:36 POC ABG HHb (Measured) 4.3 % (0-5) 11/19/16 22:36 ABG Methemoglobin 0.8 % (0.0-3.0) 11/19/16 22:36 ABG O2 Capacity 20.4 mL/dl (16-24) 11/19/16 22:36 Hgb O2 Saturation 92.7 % (95.0-98.0) L 11/19/16 22:36 FiO2 28.0 % 11/19/16 22:36 Sodium 141 mmol/L (132-148) 11/20/16 06:00 Potassium 3.2 mmol/L (3.6-5.0) L 11/20/16 06:00 Chloride 101 mmol/L (98-107) 11/20/16 06:00 Carbon Dioxide 29 mmol/L (21-33) 11/20/16 06:00 Anion Gap 14 (10-20) 11/20/16 06:00 BUN 13 mg/dL (7-21) 11/20/16 06:00 Creatinine 0.5 mg/dL (0.5-1.4) 11/20/16 06:00 Est GFR ( Amer) > 60 11/20/16 06:00 Est GFR (Non-Af Amer) > 60 11/20/16 06:00 Random Glucose 123 mg/dL (70-110) H 11/20/16 06:00 Hemoglobin A1c 6.1 % (4.2-6.5) 11/20/16 06:00 Calcium 8.9 mg/dL (8.4-10.5) 11/20/16 06:00 Magnesium 2.2 mg/dL (1.7-2.2) 11/20/16 06:00 Total Bilirubin 0.6 mg/dL (0.2-1.3) 11/19/16 11:40 AST 40 U/L (14-36) H D 11/19/16 11:40 ALT 38 U/L (7-56) 11/19/16 11:40 Alkaline Phosphatase 126 U/L (38-126) 11/19/16 11:40 Lactate Dehydrogenase 435 U/L (333-699) 11/18/16 04:25 Total Creatine Kinase 40 U/L (35-230) 11/18/16 04:25 Troponin I < 0.01 ng/mL 11/18/16 10:18 Total Protein 6.7 g/dL (5.8-8.3) 11/19/16 11:40 Albumin 3.5 g/dL (3.0-4.8) 11/19/16 11:40 Globulin 3.2 gm/dL 11/19/16 11:40 Albumin/Globulin Ratio 1.1 (1.1-1.8) 11/19/16 11:40 Triglycerides 96 mg/dL (35-160) 11/18/16 10:13 Cholesterol 189 mg/dL (130-200) 11/18/16 10:13 LDL Cholesterol Direct 126 mg/dL (0-129) 11/18/16 10:13 HDL Cholesterol 40 mg/dL (29-60) 11/18/16 10:13 Lipase 42 U/L (23-300) 11/18/16 10:13 TSH 3rd Generation 0.55 mIU/mL (0.46-4.68) 11/20/16 06:00 Blood Type AB POSITIVE 11/18/16 11:06 Blood Type Confirm AB POSITIVE 11/18/16 11:35 Antibody Screen Negative 11/18/16 11:06 BBK History Checked No verified bt 11/18/16 11:06 - Constitutional Appears: Well, No Acute Distress - Head Exam Head Exam: ATRAUMATIC, NORMAL INSPECTION, NORMOCEPHALIC Additional comments: Obese person. - Eye Exam Eye Exam: Normal appearance - ENT Exam ENT Exam: Normal External Ear Exam - Neck Exam Neck Exam: Normal Inspection - Respiratory Exam Respiratory Exam: NORMAL BREATHING PATTERN - Cardiovascular Exam Cardiovascular Exam: absent: JVD - GI/Abdominal Exam GI & Abdominal Exam: absent: Distended - Rectal Exam Rectal Exam: Deferred - Exam Additional comments: Deferred. - Extremities Exam Extremities Exam: Normal Inspection - Back Exam Back Exam: NORMAL INSPECTION - Neurological Exam Neurological Exam: Alert, Oriented x3 - Psychiatric Exam Psychiatric exam: Normal Affect, Normal Mood Assessment and Plan - Assessment and Plan (Free Text) Assessment: Elevated blood pressure reading. Abdominal pain. Cholelithiasis. HTN. Obesity. Spinal stenosis. Back pain. Leukocytosis. Hypokakemia. Plan: Clonidine .2 mg PO STAT. Clonidine 0.1mg PO was ordered after one hour. Continue present management.
[2016-11-21] MEDS: Sodium Chloride 0.9% 1,000 ML IV SCH ×2 (00:43→06:13)
[2016-11-21] MEDS ORDERED: Simethicone 80 mg Chewtab PO STA (01:27)
[2016-11-21] MEDS: Albuterol-Ipratrop 3 mg / 0.5 (3 ml) UD IH SCH ×4 (02:50→20:21)
[2016-11-21] MEDS: HYDROmorphone 2 mg/ml ISec IVP PRN ×5 (03:19→21:37)
[2016-11-21] MEDS: Piperacillin/Tazobact 3.375 gm 100 ML IVPB SCH ×3 (06:13→17:05)
[2016-11-21 10:13] LABS: BASO # 0.01 K/mm3 (0.0-2.0); BASO % 0.1 % (0.0-3.0); GRAN # 12.95 (1.4-6.5); GRAN % 83.6 % (50.0-68.0); HEMATOCRIT 39.7 % (36.0-48.0); LYMPH # 1.6 (1.2-3.4); LYMPH % 10.6 % (22.0-35.0); MEAN CELL VOLUME 84.8 fl (80.0-105.0); MEAN CORPUSCULAR HEMOGLOBIN 27.6 pg (25.0-35.0); MEAN CORPUSCULAR HGB CONC 32.5 g/dl (31.0-37.0); MEAN PLATELET VOLUME 9.6 fl (7.0-11.0); MONO # 0.9 (0.1-0.6); MONO % 5.7 % (1.0-6.0); RED CELL DISTRIBUTION WIDTH 14.9 % (11.5-14.5); WHITE BLOOD COUNT 15.5 10^3/ul (4.5-11.0)
[2016-11-21 10:24] LABS: BLOOD UREA NITROGEN 9 mg/dL (7-21); CALCIUM 8.4 mg/dL (8.4-10.5); CARBON DIOXIDE 28 mmol/L (21-33); CHLORIDE 101 mmol/L (98-107); GFR AFRICAN-AMERICAN > 60; GLUCOSE,RANDOM 94 mg/dL (70-110); MAGNESIUM 2.1 mg/dL (1.7-2.2); POTASSIUM 3.1 mmol/L (3.6-5.0); SODIUM 138 mmol/L (132-148)
[2016-11-21] MEDS: POLYETHYLENE GLYCOL 3350 17 GM/Dose PACKET PO SCH (10:24)
[2016-11-21] MEDS: Levothyroxine 125 MCG TAB PO SCH (10:25)
[2016-11-21] MEDS: NEBIVOLOL HCL 10 MG PO SCH (10:26)
[2016-11-21] MEDS: Enoxaparin 40 mg Syringe SC SCH (10:26)
--- NOTE | 2016-11-21 13:17 | CP.PCM.PN ---
Subjective - Date & Time of Evaluation Date of Evaluation: 11/21/16 Time of Evaluation: 13:14 - Subjective Subjective: General Surgery Progress note for Dr. Sandhu PT S&E at bedside. DIONE. Patient stated she did try to ambulate, but did not want to walk a lap around the floor. Patient was encouraged to ambulate to pass gas and have BM. Patient is told she will continue on clears because she was nauseas with soup. 24HR yuliana output: 70cc, serosanguinous Objective - Vital Signs/Intake and Output Vital Signs (last 24 hours): Temp Pulse Resp BP Pulse Ox 98.9 F 59 L 20 166/91 H 95 11/21/16 12:00 11/21/16 12:00 11/21/16 12:00 11/21/16 12:00 11/21/16 06:00 Intake and Output: 11/21/16 11/21/16 06:59 18:59 Intake Total 1990 Output Total 170 Balance 1820 - Medications Medications: Current Medications Acetaminophen (Tylenol 325mg Tab) 975 mg PO Q8H [facility] Last Admin: 11/21/16 06:13 Dose: 975 mg Albuterol/Ipratropium (Duoneb 3 Mg/0.5 Mg (3 Ml) Ud) 3 ml IH [id number] [facility] Last Admin: 11/21/16 08:38 Dose: 3 ml Docusate Sodium (Colace) 100 mg PO BID [facility] Last Admin: 11/21/16 10:25 Dose: 100 mg Enoxaparin Sodium (Lovenox) 40 mg SC DAILY [facility] PRN Reason: Protocol Last Admin: 11/21/16 10:26 Dose: 40 mg Famotidine (Pepcid) 20 mg PO 1000,2200 [facility] Last Admin: 11/21/16 10:25 Dose: 20 mg Hydromorphone HCl (Dilaudid) 1.5 mg IVP Q3H PRN PRN Reason: Pain, moderate (4-7) Last Admin: 11/21/16 13:11 Dose: 1.5 mg Piperacillin Sod/Tazobactam Sod (Zosyn 3.375 In Ns 100ml) 100 mls @ 200 mls/hr IVPB Q6 [facility] PRN Reason: Protocol Stop: 11/27/16 18:01 Last Admin: 11/21/16 13:11 Dose: 200 mls/hr Potassium Chloride (Potassium Chloride 20 Meq/100 Ml) 20 meq in 100 mls @ 50 mls/hr IVPB Q2H [facility] Stop: 11/21/16 15:59 Last Admin: 11/21/16 13:11 Dose: 50 mls/hr Levothyroxine Sodium (Synthroid) 125 mcg PO DAILY [facility] Last Admin: 11/21/16 10:25 Dose: 125 mcg Nebivolol Hcl [ (Bystolic] 10 Mg) 10 mg PO DAILY [facility] Last Admin: 11/21/16 10:26 Dose: 10 mg Ondansetron HCl (Zofran Inj) 4 mg IVP Q4H PRN PRN Reason: Nausea/Vomiting Last Admin: 11/21/16 10:24 Dose: 4 mg Polyethylene Glycol (Miralax) 17 gm PO DAILY [facility] Last Admin: 11/21/16 10:24 Dose: 17 gm - Labs Labs: 11/21/16 10:00 11/21/16 10:00 PT 12.4 Seconds (9.9-11.8) H 11/18/16 04:25 INR 1.15 (0.93-1.08) H 11/18/16 04:25 APTT 29.5 Seconds (23.7-30.8) 11/18/16 04:25 - Constitutional Appears: No Acute Distress - Head Exam Head Exam: NORMAL INSPECTION - Eye Exam Eye Exam: EOMI, Normal appearance - ENT Exam ENT Exam: Mucous Membranes Moist - Neck Exam Neck Exam: Full ROM - Respiratory Exam Respiratory Exam: NORMAL BREATHING PATTERN. absent: Accessory Muscle Use, Respiratory Distress - Cardiovascular Exam Cardiovascular Exam: REGULAR RHYTHM. absent: Bradycardia, Tachycardia - GI/Abdominal Exam GI & Abdominal Exam: Soft, Tenderness Additional comments: dressings c/d/i no leakage, induration, erythema - Extremities Exam Extremities Exam: Full ROM, Normal Inspection. absent: Pedal Edema - Neurological Exam Neurological Exam: Alert, Awake, Oriented x3 - Psychiatric Exam Psychiatric exam: Normal Affect, Normal Mood - Skin Skin Exam: Dry, Normal Color, Warm Assessment and Plan - Assessment and Plan (Free Text) Assessment: 56F cholcystitis s/p cholecystectomy POD#3 Plan: Diet: advanced to HHD F/u diet tolerance f/u BM monitor vitals d/w Dr. Edson Cornejo, DO PGY1
--- NOTE | 2016-11-21 13:27 | PN ---
SUBJECTIVE: The patient seen earlier this morning. She states she is doing well. No fevers and no chills. No chest pain. PHYSICAL EXAMINATION VITAL SIGNS: Temperature is 98, blood pressure is 150/90, respiratory rate of 18, and heart rate of 75. HEENT: Unremarkable. NECK: Supple. LUNGS: Decreased breath sounds. HEART: Normal S1 and S2. ABDOMEN: Soft and nontender. LABORATORY EXAMINATION: Reveals the white count is down to 15,500; hemoglobin of 12; platelets of 341. BUN of 9 creatinine of 0.6. HIV is negative and microbiology reveals a coag negative staph. Repeat blood cultures are negative. The bile culture has no growth. Review of orders reveals the patient to be on Zosyn. Abdominal x-ray is noted, no active disease. ASSESSMENT AND PLAN: A 56-year-old female with acute cholecystitis, status post open cholecystectomy, postop day #3; coag-negative staph in the blood, probable contamination; chronic back pain; history of scoliosis, spinal stenosis, status post rods and hardware. No evidence of new back pain, no evidence of infection at the pack. The patient with hypertension, hypothyroidism, hysterectomy; day #3 of Rocephin, Flagyl was switched to Zosyn and currently doing much better. We will follow the white count, once normalized may discontinue the antibiotics. Dutch Saavedra MD
--- NOTE | 2016-11-21 18:30 | PN ---
SUBJECTIVE: The patient was seen this morning. She is no longer flushed. PHYSICAL EXAMINATION: VITAL SIGNS: Normal, but blood pressure is up a little bit higher than usual. Temperature now 98, had 70 mL out of the drain that is serosanguineous. LABORATORY DATA: Shows the white count is down from 23 to 15. Hemoglobin stable. Liver functions are improved. The blood cultures are noted to have showing the blood coagulase-negative strep. The wound culture from the vial from 11/08 shows no organisms, although I am certain this was the source. We will increase her diet. Lazaro Sandhu MD
[2016-11-22] MEDS: Piperacillin/Tazobact 3.375 gm 100 ML IVPB SCH ×2 (00:36→05:04)
[2016-11-22] MEDS: HYDROmorphone 2 mg/ml ISec IVP PRN ×3 (01:05→08:32)
--- NOTE | 2016-11-22 01:54 | PN ---
SUBJECTIVE: A 56-year-old white female admitted to the hospital with acute cholelithiasis, cholecystitis, status post cholecystectomy. The patient still has a Nilo-Bowers drain. She is passing gas, but not had a bowel movement. Her abdomen still mildly distended complaining of intermittent pain. The patient also has history of chronic back pain on high dose pain medication from her pain management physician. PHYSICAL EXAMINATION: GENERAL: Shows a well developed and slightly obese white female in minimal distress. HEENT: Essentially within normal limits. HEART: Regular sinus rhythm. No S3 or murmur. ABDOMEN: Distended, but bowel sounds are hypoactive but positive. No masses palpable. There is no fluid wave. EXTREMITIES: Without cyanosis, clubbing or edema. PLAN: Plan is to increase ambulation out of bed to chair. Increase diet. Continue IV antibiotics and possible surgical drain removal. Dom Dover MD
[2016-11-22] MEDS: Albuterol-Ipratrop 3 mg / 0.5 (3 ml) UD IH SCH ×4 (03:30→20:09)
[2016-11-22 07:01] LABS: BASO # 0.01 K/mm3 (0.0-2.0); BASO % 0.1 % (0.0-3.0); EOS % 0.4 % (1.5-5.0); GRAN # 8.08 (1.4-6.5); GRAN % 76.9 % (50.0-68.0); HEMATOCRIT 37.5 % (36.0-48.0); LYMPH # 1.7 (1.2-3.4); MEAN CELL VOLUME 84.7 fl (80.0-105.0); MEAN CORPUSCULAR HGB CONC 33.1 g/dl (31.0-37.0); MEAN PLATELET VOLUME 9.4 fl (7.0-11.0); MONO # 0.7 (0.1-0.6); MONO % 6.6 % (1.0-6.0); RED CELL DISTRIBUTION WIDTH 14.9 % (11.5-14.5); WHITE BLOOD COUNT 10.5 10^3/ul (4.5-11.0)
[2016-11-22 07:25] LABS: BLOOD UREA NITROGEN 11 mg/dL (7-21); CALCIUM 8.2 mg/dL (8.4-10.5); CARBON DIOXIDE 29 mmol/L (21-33); CHLORIDE 101 mmol/L (98-107); GFR AFRICAN-AMERICAN > 60; GLUCOSE,RANDOM 111 mg/dL (70-110); MAGNESIUM 2.1 mg/dL (1.7-2.2); POTASSIUM 3.3 mmol/L (3.6-5.0); SODIUM 137 mmol/L (132-148)
[2016-11-22] MEDS ORDERED: Potassium Chloride 20 mEq ER Tab PO STA (08:41)
[2016-11-22] MEDS: Levothyroxine 125 MCG TAB PO SCH (09:11)
[2016-11-22] MEDS: POLYETHYLENE GLYCOL 3350 17 GM/Dose PACKET PO SCH (09:12)
[2016-11-22] MEDS: Enoxaparin 40 mg Syringe SC SCH (09:12)
[2016-11-22] MEDS: NEBIVOLOL HCL 10 MG PO SCH (09:15)
--- NOTE | 2016-11-22 09:39 | CP.PCM.PN ---
Subjective - Date & Time of Evaluation Date of Evaluation: 11/22/16 Time of Evaluation: 09:36 - Subjective Subjective: General Surgery Progress Note for Dr. Sandhu Patient states she's feeling better. She had an episode of nausea. Patient is tolerating diet, had bowel movements. Patient denies F/C, N/V. Dressings removed at bedside. drain dressing replaced at bedside. Patient states she's ambulating more. Drain output at bedside 50cc serosanguinous with 100cc recorded during the afternoon per nursing staff (150cc over 24 hours) Objective - Vital Signs/Intake and Output Vital Signs (last 24 hours): Temp Pulse Resp BP Pulse Ox 98 F 62 20 165/105 H 98 11/22/16 08:14 11/22/16 08:14 11/22/16 08:14 11/22/16 08:14 11/22/16 08:14 Intake and Output: 11/22/16 11/22/16 06:59 18:59 Intake Total 240 Output Total 450 Balance -210 - Medications Medications: Current Medications Acetaminophen (Tylenol 325mg Tab) 975 mg PO Q8H [facility] Last Admin: 11/22/16 05:57 Dose: Not Given Albuterol/Ipratropium (Duoneb 3 Mg/0.5 Mg (3 Ml) Ud) 3 ml IH [id number] [facility] Last Admin: 11/22/16 07:35 Dose: 3 ml Amoxicillin/Clavulanate Potassium (Augmentin 875 Mg-125 Mg Tab) 1 tab PO Q12 [facility] PRN Reason: Protocol Stop: 11/25/16 10:01 Clonidine HCl (Catapres) 0.1 mg PO Q6 PRN PRN Reason: Diastolic blood pressure Last Admin: 11/22/16 01:34 Dose: 0.1 mg Docusate Sodium (Colace) 100 mg PO BID [facility] Last Admin: 11/22/16 09:11 Dose: 100 mg Enoxaparin Sodium (Lovenox) 40 mg SC DAILY [facility] PRN Reason: Protocol Last Admin: 11/22/16 09:12 Dose: 40 mg Famotidine (Pepcid) 20 mg PO 1000,2200 [facility] Last Admin: 11/22/16 09:11 Dose: 20 mg Hydromorphone HCl (Dilaudid) 1.5 mg IVP Q3H PRN PRN Reason: Pain, moderate (4-7) Last Admin: 11/22/16 08:32 Dose: 1.5 mg Levothyroxine Sodium (Synthroid) 125 mcg PO DAILY [facility] Last Admin: 11/22/16 09:11 Dose: 125 mcg Nebivolol Hcl [ (Bystolic] 10 Mg) 10 mg PO DAILY [facility] Last Admin: 11/22/16 09:15 Dose: 10 mg Ondansetron HCl (Zofran Inj) 4 mg IVP Q4H PRN PRN Reason: Nausea/Vomiting Last Admin: 11/22/16 05:41 Dose: 4 mg Polyethylene Glycol (Miralax) 17 gm PO DAILY [facility] Last Admin: 11/22/16 09:12 Dose: 17 gm - Labs Labs: 11/22/16 06:30 11/22/16 06:30 PT 12.4 Seconds (9.9-11.8) H 11/18/16 04:25 INR 1.15 (0.93-1.08) H 11/18/16 04:25 APTT 29.5 Seconds (23.7-30.8) 11/18/16 04:25 - Constitutional Appears: Non-toxic - Head Exam Head Exam: NORMAL INSPECTION - Eye Exam Eye Exam: EOMI, Normal appearance - ENT Exam ENT Exam: Mucous Membranes Moist - Neck Exam Neck Exam: Full ROM - Respiratory Exam Respiratory Exam: Clear to Ausculation Bilateral, NORMAL BREATHING PATTERN. absent: Accessory Muscle Use, Respiratory Distress - Cardiovascular Exam Cardiovascular Exam: REGULAR RHYTHM. absent: Bradycardia, Tachycardia - GI/Abdominal Exam GI & Abdominal Exam: Soft, Tenderness. absent: Guarding, Rigid, Rebound Additional comments: kandace incision site with joel c/d/i no erythema, drainage port incision sites c/d/i - Extremities Exam Extremities Exam: Full ROM, Normal Inspection. absent: Pedal Edema - Back Exam Back Exam: Full ROM - Neurological Exam Neurological Exam: Alert, Awake, Oriented x3 - Psychiatric Exam Psychiatric exam: Normal Affect, Normal Mood - Skin Skin Exam: Dry, Intact, Normal Color, Warm Assessment and Plan - Assessment and Plan (Free Text) Assessment: 56F cholecystitis s/p cholecystectomy POD#3 Plan: Diet: advanced to HHD F/u diet tolerance f/u BM monitor vitals DC IV pain medications d/w Dr. Edson Cornejo, DO PGY1
[2016-11-22] MEDS ORDERED: HYDROmorphone 2 mg/ml ISec IVP PRN (12:31)
[2016-11-22] MEDS: Amoxicillin-Clav 875-125 mg Tab PO SCH ×2 (12:39→21:23)
--- NOTE | 2016-11-22 13:42 | PN ---
DATE: 11/22/2016 SUBJECTIVE: The patient is seen earlier today in 566, bed 1. She is awake and alert. She states she is doing well. PHYSICAL EXAMINATION: VITAL SIGNS: Temperature is 98, blood pressure is 160/100, respiratory rate of 20, and heart rate of 62. HEENT: Unremarkable. NECK: Supple. LUNGS: Decreased breath sounds. HEART: Normal S1 and S2. ABDOMEN: Soft and nontender. LABORATORY EXAMINATION: Reveals a white count is down to 10,000, hemoglobin of 12, platelets of 339, BUN of 11, creatinine of 0.6 and HIV is negative. Microbiology reveals a coag negative in the blood. Blood cultures have no growth. ASSESSMENT AND PLAN: This is a 56-year-old female with acute cholecystitis, status post cholecystectomy, postop day #4 with a coag-negative staph in blood probable contamination. The patient with a history of chronic back pain, history of scoliosis, spinal stenosis, status post rods and hardware. No evidence of new back pain at this time. No evidence of infection of the back and the patient with hypertension, hypothyroidism, day #4 of Zosyn and normal white count. Review of the pathology reveals the patient with acute necrotizing gangrenous cholecystitis and cholelithiasis. We will discontinue the Zosyn, switch over to p.o. The patient still has a surgical drainage. We will use p.o. Augmentin one tab p.o. b.i.d. x3 days. Dutch Saavedra MD
--- NOTE | 2016-11-22 14:15 | PN ---
DATE: The patient is 56 years old, covering for Dr. Dover. SUBJECTIVE: The patient is seen and examined, complained of feeling nauseous. She did have bowel movement today. She did not have any hemoptysis, hematemesis. No rectal bleeding. No shortness of breath. No cough. PHYSICAL EXAMINATION: VITAL SIGNS: She is afebrile with pulse of 62, respiration 12, blood pressure LUNGS: Bilateral fair air flow. No rhonchi or crackles. HEART: S1 and S2 audible. ABDOMEN: Soft, slight right upper quadrant discomfort on palpation. NEUROLOGIC: She is awake and alert, able to communicate. LABORATORY EXAM: WBC 10.5, hemoglobin 12.4, hematocrit 37.5, platelets 339. Chemistry: Sodium 137, potassium 3.3, chloride 101, CO2 of 29, BUN 11, creatinine 0.6, blood sugar is 111. When patient admitted on 11/18/2016, she has coag-negative bacteremia with cultures are negative. ASSESSMENT: 1. Status post cholecystectomy. 2. Status post bacteremia. 3. Leukocytosis that is improving. 4. Hypokalemia. 5. Chronic back pain and scoliosis with history of spinal stenosis. 6. Hypothyroidism. PLAN: Currently, the patient is not tolerating food that well. She states she does not have any desire to eat. She is on p.o. Augmentin. We will watch her another 24 hours. If her nausea subsides, she will be discharged home in a.m. Parker Red MD
[2016-11-22] MEDS: oxyCODONE 15 mg Immediate Release Tab PO PRN ×2 (16:55→23:24)
[2016-11-22] MEDS: oxyCODONE 20 mg ER Tab (oxyCONTIN) PO SCH (21:24)
[2016-11-23] MEDS: Albuterol-Ipratrop 3 mg / 0.5 (3 ml) UD IH SCH ×4 (01:23→20:20)
--- NOTE | 2016-11-23 06:25 | CP.PCM.PN ---
Subjective - Date & Time of Evaluation Date of Evaluation: 11/23/16 Time of Evaluation: 06:10 - Subjective Subjective: General surgery progress note for Dr. Mariel Benavides, PGY-1 Pt S & E at bedside. Pt w/new onset nausea and nbnb emesis x 3 over last 24H, had one episode of diarrhea yesterday afternoon after 2 formed/normal stools. Was given Zofran and Reglan x 1 with some relief. Reports ambulating to bathroom. Left shoulder pain , pain with deep breathing. Some ab pain. No other complaints, denies F/C, CP. Objective - Vital Signs/Intake and Output Vital Signs (last 24 hours): Temp Pulse Resp BP Pulse Ox 98.7 F 57 L 20 160/98 H 96 11/23/16 00:01 11/23/16 00:01 11/23/16 00:01 11/23/16 00:01 11/23/16 00:01 Intake and Output: 11/22/16 11/23/16 18:59 06:59 Intake Total 720 1040 Output Total 1 85 Balance 719 955 - Medications Medications: Current Medications Acetaminophen (Tylenol 325mg Tab) 975 mg PO Q8H [facility] Last Admin: 11/22/16 22:48 Dose: Not Given Albuterol/Ipratropium (Duoneb 3 Mg/0.5 Mg (3 Ml) Ud) 3 ml IH [id number] [facility] Last Admin: 11/23/16 01:23 Dose: Not Given Amoxicillin/Clavulanate Potassium (Augmentin 875 Mg-125 Mg Tab) 1 tab PO Q12 [facility] PRN Reason: Protocol Stop: 11/25/16 10:01 Last Admin: 11/22/16 21:23 Dose: 1 tab Clonidine HCl (Catapres) 0.1 mg PO Q6 PRN PRN Reason: Diastolic blood pressure Last Admin: 11/22/16 15:21 Dose: 0.1 mg Docusate Sodium (Colace) 100 mg PO BID [facility] Last Admin: 11/22/16 18:15 Dose: Not Given Enoxaparin Sodium (Lovenox) 40 mg SC DAILY [facility] PRN Reason: Protocol Last Admin: 11/22/16 09:12 Dose: 40 mg Famotidine (Pepcid) 20 mg PO 1000,2200 [facility] Last Admin: 11/22/16 21:24 Dose: 20 mg Gabapentin (Neurontin) 200 mg PO BID [facility] PRN Reason: Protocol Last Admin: 11/22/16 18:15 Dose: Not Given Levothyroxine Sodium (Synthroid) 125 mcg PO DAILY [facility] Last Admin: 11/22/16 09:11 Dose: 125 mcg Nebivolol Hcl [ (Bystolic] 10 Mg) 10 mg PO DAILY [facility] Last Admin: 11/22/16 09:15 Dose: 10 mg Ondansetron HCl (Zofran Inj) 4 mg IVP Q4H PRN PRN Reason: Nausea/Vomiting Last Admin: 11/23/16 02:11 Dose: 4 mg Oxycodone HCl (Oxycontin Extended Release Tab) 40 mg PO Q12 [facility] Last Admin: 11/22/16 21:24 Dose: 40 mg Oxycodone HCl (Oxycodone Immediate Release Tab) 15 mg PO Q6H PRN PRN Reason: Pain, moderate (4-7) Last Admin: 11/22/16 23:24 Dose: 15 mg Polyethylene Glycol (Miralax) 17 gm PO DAILY [facility] Last Admin: 11/22/16 09:12 Dose: 17 gm - Labs Labs: 11/22/16 06:30 11/22/16 06:30 PT 12.4 Seconds (9.9-11.8) H 11/18/16 04:25 INR 1.15 (0.93-1.08) H 11/18/16 04:25 APTT 29.5 Seconds (23.7-30.8) 11/18/16 04:25 - Constitutional Appears: Non-toxic, No Acute Distress - Head Exam Head Exam: ATRAUMATIC, NORMAL INSPECTION, NORMOCEPHALIC - Eye Exam Eye Exam: EOMI, Normal appearance - ENT Exam ENT Exam: Mucous Membranes Moist, Normal Exam - Neck Exam Neck Exam: Full ROM, Normal Inspection - Respiratory Exam Respiratory Exam: Clear to Ausculation Bilateral, NORMAL BREATHING PATTERN - Cardiovascular Exam Cardiovascular Exam: REGULAR RHYTHM, +S1, +S2 - GI/Abdominal Exam GI & Abdominal Exam: Soft, Tenderness (Epigastric, LUQ- mild), Hypoactive Bowel Sounds. absent: Distended, Firm, Guarding, Rebound Additional comments: LUQ with surgical incision with joel in place-minimally TTP, no drainage, minimal erythema, LLQ with Francisco in place with ~5cc serous output, dressing C/D/ I; umbilical incision sites with clear glue in place- no erythema or drainage noted - Extremities Exam Extremities Exam: Normal Inspection. absent: Pedal Edema - Neurological Exam Neurological Exam: Alert, Awake, CN II-XII Intact, Oriented x3 - Psychiatric Exam Psychiatric exam: Normal Affect, Normal Mood - Skin Skin Exam: Dry, Intact, Normal Color, Warm Assessment and Plan - Assessment and Plan (Free Text) Assessment: 56F POD#5 s/p laparoscopic converted to open cholecystectomy Plan: Having BMs PO pain regimen Anti-emetics Continue to monitor for diet tolerance Will DW attending Makayla, PGY-1
[2016-11-23 07:35] LABS: ALKALINE PHOSPHATASE 205 U/L (38-126); ALT/SGPT 40 U/L (7-56); AST/SGOT 73 U/L (14-36); BILIRUBIN,TOTAL 0.7 mg/dL (0.2-1.3); BLOOD UREA NITROGEN 10 mg/dL (7-21); CALCIUM 8.6 mg/dL (8.4-10.5); CARBON DIOXIDE 28 mmol/L (21-33); CHLORIDE 101 mmol/L (95-110); GFR AFRICAN-AMERICAN > 60; GLUCOSE,RANDOM 103 mg/dL (70-110); POTASSIUM 3.5 mmol/L (3.6-5.0); SODIUM 139 mmol/L (132-148); TOTAL PROTEIN 6.7 g/dL (5.8-8.3)
[2016-11-23 08:14] LABS: BASO # 0.01 K/mm3 (0.0-2.0); BASO % 0.1 % (0.0-3.0); EOS # 0.1 (0.0-0.7); EOS % 0.7 % (1.5-5.0); GRAN # 10.44 (1.4-6.5); GRAN % 76.4 % (50.0-68.0); HEMATOCRIT 40.8 % (36.0-48.0); LYMPH # 2.3 (1.2-3.4); MEAN CELL VOLUME 85.5 fl (80.0-105.0); MEAN CORPUSCULAR HEMOGLOBIN 27.7 pg (25.0-35.0); MEAN CORPUSCULAR HGB CONC 32.4 g/dl (31.0-37.0); MEAN PLATELET VOLUME 9.7 fl (7.0-11.0); MONO # 0.8 (0.1-0.6); MONO % 5.8 % (1.0-6.0); RED CELL DISTRIBUTION WIDTH 14.9 % (11.5-14.5); WHITE BLOOD COUNT 13.7 10^3/ul (4.5-11.0)
[2016-11-23] MEDS: Levothyroxine 125 MCG TAB PO SCH ×2 (08:34→10:47)
[2016-11-23] MEDS: Amoxicillin-Clav 875-125 mg Tab PO SCH (10:45)
[2016-11-23] MEDS: oxyCODONE 20 mg ER Tab (oxyCONTIN) PO SCH ×2 (10:45→21:47)
[2016-11-23] MEDS: Enoxaparin 40 mg Syringe SC SCH (10:46)
[2016-11-23] MEDS: POLYETHYLENE GLYCOL 3350 17 GM/Dose PACKET PO SCH (10:46)
[2016-11-23] MEDS: NEBIVOLOL HCL 10 MG PO SCH (10:46)
[2016-11-23] MEDS ORDERED: Potassium Chloride 10 mEq 100 ML IVPB SCH (11:00)
[2016-11-23] MEDS ORDERED: Iohexol 240 (50 ml) ONE (11:08)
[2016-11-23] MEDS: Vancomycin 1gm in NS 250ml 1 GM/250 ML BAG IVPB SCH ×2 (13:23→23:05)
[2016-11-23] MEDS: Meropenem 1g/NS 100mL IVPB 1 GM/100 ML PIGGYBACK IVPB SCH ×3 (13:24→21:49)
--- NOTE | 2016-11-23 15:23 | PN ---
DATE: 11/23/2016 SUBJECTIVE: The patient is in bed, in no acute distress, nontoxic. PHYSICAL EXAMINATION: VITAL SIGNS: Temperature is 98, blood pressure is 160/90, respiratory rate of 20. HEENT: Unremarkable. NECK: Supple. LUNGS: Decreased breath sounds. HEART: Normal S1 and S2. ABDOMEN: Soft, nontender. LABORATORY DATA: Reveals a white count of 13,700, hemoglobin of 13, platelets of 372, coagulation is noted. Chemistry reveals a BUN of 10, creatinine of 0.6. HIV is negative. Blood cultures initially are coagulase negative staph. Repeat blood cultures are negative. Review of orders reveals the patient is on p.o. Augmentin. note is reviewed. ASSESSMENT AND PLAN: A 56-year-old female with acute cholecystitis, status post cholecystectomy, post seizure day #5 with coagulase negative staph in the blood, probably a contamination, history of chronic back pain, history of scoliosis, spinal stenosis status post rods and hardware in the past. No evidence of back infection at this time. No evidence of infection in the back and the patient with hypertension, hypothyroidism and had received 4 days of Zosyn yesterday for acute necrotizing gangrenous gallbladder; however, this morning the patient has leukocytosis and nausea. White count is increased to 13,700. The patient is nauseated, concerned about ileus, GI pathology versus nosocomial pneumonia. We will discontinue the Augmentin and repeat bautista cultures, blood cultures, urine cultures because leukocytosis and urinalysis. Ordered a CAT scan of the abdomen and pelvis and a chest x-ray and procalcitonin and we will start the patient on empiric vancomycin and meropenem. We will follow closely with you. Dutch Saavedra MD
[2016-11-23] MEDS: oxyCODONE 15 mg Immediate Release Tab PO PRN ×2 (16:53→22:30)
--- NOTE | 2016-11-23 17:02 | RAD ---
HISTORY: increased WBC COMPARISON: Comparison chest 11/18/2016 correlation made with concurrent CT scan abdomen pelvis which also image both lung bases. TECHNIQUE: Chest PA and lateral FINDINGS: LUNGS: Bibasilar atelectasis/consolidation changes right greater than left. Underlying pneumonia not excluded. PLEURA: No significant pleural effusion identified. No pneumothorax apparent. CARDIOVASCULAR: Heart appears mildly enlarged. OSSEOUS STRUCTURES: No significant abnormalities. VISUALIZED UPPER ABDOMEN: Normal. OTHER FINDINGS: None. IMPRESSION: Bibasilar atelectasis/ consolidation changes right greater than left. Underlying pneumonia not excluded.
[2016-11-23] MEDS: Dextrose 5%/0.45% NS 1,000 ML IV SCH (19:34)
--- NOTE | 2016-11-23 19:43 | CT ---
EXAM: CT Abdomen and Pelvis Without Intravenous Contrast EXAM DATE/TIME: 11/23/2016 11:01 AM CLINICAL HISTORY: 56 years old, female; Abnormal findings; Abnormal lab test; Elevated wbc; Prior surgery; Surgery type: Cholecystectomy - hysterectomy; Additional info: Inc wbc R/O ileus R/O collection TECHNIQUE: Axial computed tomography images of the abdomen and pelvis without intravenous contrast. All CT scans at this facility use one or more dose reduction techniques, viz.: automated exposure control; ma/kV adjustment per patient size (including targeted exams where dose is matched to indication; i.e. head); or iterative reconstruction technique. Coronal and sagittal reformatted images were created and reviewed. COMPARISON: None is available. FINDINGS: LIMITATIONS: Streak artifact from extensive metallic hardware in the spine. LOWER THORAX: Areas of dense consolidation in the lung bases bilaterally, suspicious for bilateral pneumonia (versus atelectasis). ABDOMEN: LIVER: No acute abnormality of the liver identified. GALLBLADDER AND BILE DUCTS: Cholecystectomy clips. There is a large pocket of fluid in the cholecystectomy bed, image 56 of series 601, suspicious for a fluid collection. This measures approximately 8 x 6 x 4 cm maximally. It has a small area of hyperdensity within it, with a CT density of up to 70 Hounsfield units, however, most of the fluid collection has a density suggestive of simple fluid. It does not have a discernible wall, and it does not contain gas. There is diffuse stranding of the nearby fat in the right abdomen, abutting the cholecystectomy bed, and there is a small amount of nearby free fluid and right retroperitoneal fluid. Common bile duct is not well seen, however, there is no evidence of diffuse biliary ductal dilatation. PANCREAS: No CT evidence of acute pancreatitis. SPLEEN: No acute abnormality of the spleen identified. ADRENALS: No acute abnormality of the adrenal glands identified. KIDNEYS AND URETERS: No acute abnormality of the kidneys seen. STOMACH AND BOWEL: Wall thickening of the distal stomach and a the duodenum. This is most likely reactive in etiology, related to the nearby process in the cholecystectomy bed. The On image 70 of series 2, there is a round collection of air and enteric contrast in the right abdomen, abutting the distal stomach and the proximal duodenum. Most likely represents a large duodenal diverticulum. It measures 3.9 cm. Otherwise, no significant abnormality of the bowel is identified. No evidence of bowel obstruction. APPENDIX: The appendix is seen, extending superiorly from the cecum, images [id number] of series 601. It is fluid-filled and abnormally dilated, measuring up to 1.1 cm in diameter (normal less than 6 mm), but there is no adjacent inflammation or evidence of appendiceal wall thickening. PELVIS: BLADDER: No acute abnormality of the bladder identified. REPRODUCTIVE: Small cystic lesions are seen in the ovaries bilaterally, the larger on the right, measuring 2.3 cm. These and has a benign appearance by CT. No followup is warranted based on the imaging findings, unless otherwise clinically indicated. No acute abnormality of the uterus identified. ABDOMEN and PELVIS: INTRAPERITONEAL SPACE: 2 tiny foci of free intraperitoneal air are seen, in the right anterior abdomen. Abdominal and pelvic free fluid, small in amount. BONES/JOINTS: Marked left convex scoliosis of the spine. Long posterior esdras and screw fixation device is noted in the spine. Postoperative changes involving the right iliac bone. SOFT TISSUES: Recent postoperative changes involving the right anterior abdominal wall. Skin joel are noted, and there is mild, diffuse subcutaneous edema and small focus of soft tissue air. VASCULATURE: No evidence of abdominal aortic aneurysm. No evidence of periaortic hemorrhage. LYMPH NODES: No evidence of diffuse lymphadenopathy. TUBES, LINES AND DEVICES: Percutaneous surgical drain is in place. This terminates in the peritoneal cavity anteriorly, in the lower abdomen, in the midline. IMPRESSION: - LARGE 8 X 6 X 4 FLUID COLLECTION IN THE CHOLECYSTECTOMY BED. THIS DOES NOT HAVE CT FEATURES TO SUGGEST A RAFA ABSCESS. IT COULD REPRESENT A RESOLVING HEMATOMA, A BILOMA RELATED TO A CYSTIC DUCT STUMP LEAK, OR A SEROMA. THERE IS NEARBY DIFFUSE FAT STRANDING AND FLUID IN THE RIGHT ABDOMEN. - Few tiny foci of free intraperitoneal air, presumably representing residual post operative air. - Small amount of abdominal and pelvic free fluid. - Fluid-filled and abnormally dilated appendix, with no adjacent inflammation. Most likely, the findings are within normal limits. If there is any clinical concern for early acute appendicitis, consider a short-term followup CT scan, to reassess the appendix. - Areas of dense consolidation in the lung bases bilaterally, suspicious for bilateral pneumonia (versus atelectasis). - Surgical drainage catheter in place. - See above for remaining findings.
--- NOTE | 2016-11-23 19:49 | PN ---
SUBJECTIVE: The patient is 56 years old, seen and examined, still complaining of feeling nauseous, has no appetite, appears to be discomfort. PHYSICAL EXAMINATION VITAL SIGNS: The patient is afebrile, pulse 56, respirations 18, blood pressure 152/90. LUNGS: Bilateral fair air flow. No rhonchi or crackles. HEART: S1 and S2 is audible. ABDOMEN: Soft, slight epigastric discomfort and discomfort at surgical site. NEUROLOGICALLY: She is awake and alert, able to communicate. LABORATORY DATA: WBC is 13.7, hemoglobin 13, hematocrit 40, platelet 372. Chemistry: Sodium 139, potassium 3.5, chloride 101, CO2 of 28, BUN 10, creatinine 0.6, blood sugar of 103, AST 73, alk phos is 205. X-ray of chest shows bibasilar atelectasis, questionable pneumonia. Had CT scan of the abdomen and pelvis done that is pending. ASSESSMENT: 1. Intractable nausea. 2. Status post cholecystectomy. 3. Hypertension. 4. Hypokalemia. PLAN: We will follow CT scan of the abdomen and pelvis that was done earlier. Follow up electrolyte in the a.m. The patient states she is not up to going home, she still does not feel good. Supplement her potassium and reevaluate her in a.m. Parker Red MD
[2016-11-23] MEDS ORDERED: Morphine 2 mg/ml ISec IVP ONE (23:17)
[2016-11-24] MEDS: Albuterol-Ipratrop 3 mg / 0.5 (3 ml) UD IH SCH ×5 (03:54→20:22)
[2016-11-24] MEDS: oxyCODONE 15 mg Immediate Release Tab PO PRN ×2 (04:31→16:59)
[2016-11-24] MEDS: Meropenem 1g/NS 100mL IVPB 1 GM/100 ML PIGGYBACK IVPB SCH ×3 (05:35→22:27)
[2016-11-24] MEDS ORDERED: Morphine 2 mg/ml ISec IVP ONE (05:53)
[2016-11-24 08:13] LABS: BASO # 0.02 K/mm3 (0.0-2.0); BASO % 0.1 % (0.0-3.0); EOS # 0.4 (0.0-0.7); EOS % 2.3 % (1.5-5.0); GRAN # 12.48 (1.4-6.5); GRAN % 78.4 % (50.0-68.0); HEMATOCRIT 42.2 % (36.0-48.0); LYMPH # 2.1 (1.2-3.4); LYMPH % 13.4 % (22.0-35.0); MEAN CELL VOLUME 85.3 fl (80.0-105.0); MEAN CORPUSCULAR HEMOGLOBIN 28.1 pg (25.0-35.0); MEAN CORPUSCULAR HGB CONC 32.9 g/dl (31.0-37.0); MEAN PLATELET VOLUME 9.6 fl (7.0-11.0); MONO # 0.9 (0.1-0.6); MONO % 5.8 % (1.0-6.0); RED CELL DISTRIBUTION WIDTH 14.7 % (11.5-14.5); WHITE BLOOD COUNT 15.9 10^3/ul (4.5-11.0)
[2016-11-24 08:59] LABS: ALB/GLOB RATIO 1.1 (1.1-1.8); ALKALINE PHOSPHATASE 220 U/L (38-126); ALT/SGPT 144 U/L (7-56); AST/SGOT 208 U/L (14-36); BILIRUBIN,TOTAL 0.5 mg/dL (0.2-1.3); BLOOD UREA NITROGEN 8 mg/dL (7-21); CALCIUM 8.6 mg/dL (8.4-10.5); CARBON DIOXIDE 30 mmol/L (21-33); CHLORIDE 100 mmol/L (98-107); GFR AFRICAN-AMERICAN > 60; GLUCOSE,RANDOM 121 mg/dL (70-110); POTASSIUM 3.4 mmol/L (3.6-5.0); SODIUM 139 mmol/L (132-148); TOTAL PROTEIN 6.2 g/dL (5.8-8.3)
--- NOTE | 2016-11-24 09:06 | CP.PCM.PN ---
Subjective - Date & Time of Evaluation Date of Evaluation: 11/24/16 Time of Evaluation: 09:03 - Subjective Subjective: General Surgery Pt S&E, had RUQ pain requiring breakthrough IV morphine overnight. CT scan showing fluid collection in Gb fossa suspicious for bile leak vs post surgical fluid. Tolerating diet. Objective - Vital Signs/Intake and Output Vital Signs (last 24 hours): Temp Pulse Resp BP Pulse Ox 97.8 F 63 16 151/96 H 91 L 11/24/16 07:30 11/24/16 07:30 11/24/16 07:30 11/24/16 07:30 11/24/16 07:30 Intake and Output: 11/24/16 11/24/16 06:59 18:59 Intake Total 380 Balance 380 - Medications Medications: Current Medications Acetaminophen (Tylenol 325mg Tab) 975 mg PO Q8H [facility] Last Admin: 11/24/16 05:35 Dose: 975 mg Albuterol/Ipratropium (Duoneb 3 Mg/0.5 Mg (3 Ml) Ud) 3 ml IH [id number] [facility] Last Admin: 11/24/16 07:15 Dose: 3 ml Amlodipine Besylate (Norvasc) 10 mg PO DAILY [facility] Last Admin: 11/23/16 10:46 Dose: 10 mg Clonidine HCl (Catapres) 0.1 mg PO Q6 PRN PRN Reason: Diastolic blood pressure Last Admin: 11/22/16 15:21 Dose: 0.1 mg Docusate Sodium (Colace) 100 mg PO BID [facility] Last Admin: 11/23/16 19:34 Dose: Not Given Enoxaparin Sodium (Lovenox) 40 mg SC DAILY [facility] PRN Reason: Protocol Last Admin: 11/23/16 10:46 Dose: 40 mg Famotidine (Pepcid) 20 mg PO 1000,2200 [facility] Last Admin: 11/23/16 21:49 Dose: 20 mg Gabapentin (Neurontin) 200 mg PO BID [facility] PRN Reason: Protocol Last Admin: 11/23/16 17:01 Dose: 200 mg Dextrose/Sodium Chloride (Dextrose 5%/0.45% Ns 1000 Ml) 1,000 mls @ 75 mls/hr IV .[id number] [facility] Last Admin: 11/23/16 19:34 Dose: 75 mls/hr Meropenem 1g/NS 100mL IVPB (Meropenem 1g/Ns 100ml Ivpb) 1 gm in 100 mls @ 100 mls/hr IVPB Q8 [facility] PRN Reason: Protocol Stop: 12/02/16 11:16 Last Admin: 11/24/16 05:35 Dose: 100 mls/hr Vancomycin HCl (Vancomycin 1gm) 1 gm in 250 mls @ 167 mls/hr IVPB Q12H [facility] PRN Reason: Protocol Stop: 12/02/16 11:16 Last Admin: 11/23/16 23:05 Dose: 167 mls/hr Levothyroxine Sodium (Synthroid) 125 mcg PO DAILY [facility] Last Admin: 11/23/16 10:47 Dose: Not Given Nebivolol Hcl [ (Bystolic] 10 Mg) 10 mg PO DAILY [facility] Last Admin: 11/23/16 10:46 Dose: 10 mg Ondansetron HCl (Zofran Inj) 4 mg IVP Q4H PRN PRN Reason: Nausea/Vomiting Last Admin: 11/23/16 13:23 Dose: 4 mg Oxycodone HCl (Oxycontin Extended Release Tab) 40 mg PO Q12 [facility] Last Admin: 11/23/16 21:47 Dose: 40 mg Oxycodone HCl (Oxycodone Immediate Release Tab) 15 mg PO Q6H PRN PRN Reason: Pain, moderate (4-7) Last Admin: 11/24/16 04:31 Dose: 15 mg Polyethylene Glycol (Miralax) 17 gm PO DAILY [facility] Last Admin: 11/23/16 10:46 Dose: 17 gm - Labs Labs: 11/24/16 07:30 11/24/16 07:30 PT 12.4 Seconds (9.9-11.8) H 11/18/16 04:25 INR 1.15 (0.93-1.08) H 11/18/16 04:25 APTT 29.5 Seconds (23.7-30.8) 11/18/16 04:25 - Constitutional Appears: Non-toxic, No Acute Distress - Head Exam Head Exam: ATRAUMATIC, NORMOCEPHALIC - Eye Exam Eye Exam: EOMI. absent: Scleral icterus - Respiratory Exam Respiratory Exam: NORMAL BREATHING PATTERN. absent: Respiratory Distress - GI/Abdominal Exam GI & Abdominal Exam: Guarding (mild), Soft, Tenderness (in RUQ/lower R ribs). absent: Distended, Rigid, Rebound Additional comments: incisions C/D/I drain in place in RLQ with clear yellow output - Neurological Exam Neurological Exam: Alert, Awake, Oriented x3 Assessment and Plan - Assessment and Plan (Free Text) Assessment: 56F POD#6 s/p lap converted to open cholecystectomy Plan: HIDA ordered, NPO for test Breakthrough pain meds as needed D/W Dr. Edson Haji PGY4
[2016-11-24] MEDS ORDERED: Morphine 2 mg/ml ISec IVP PRN (09:11)
[2016-11-24] MEDS: Levothyroxine 125 MCG TAB PO SCH (10:00)
[2016-11-24] MEDS: Vancomycin 1gm in NS 250ml 1 GM/250 ML BAG IVPB SCH ×2 (11:20→23:23)
[2016-11-24] MEDS: Morphine 2 mg/ml ISec IVP PRN ×3 (12:21→18:47)
[2016-11-24] MEDS: Enoxaparin 40 mg Syringe SC SCH (15:55)
[2016-11-24] MEDS: oxyCODONE 20 mg ER Tab (oxyCONTIN) PO SCH ×2 (15:55→22:30)
--- NOTE | 2016-11-24 16:08 | PN ---
DATE: 11/24/2016 SUBJECTIVE: The patient is seen in bed this morning. She still has some nausea, somewhat improved. She is complaining of right upper quadrant pain. No fevers documented. PHYSICAL EXAMINATION: VITAL SIGNS: Temperature is 98, blood pressure is 150/90, respiratory rate of 20, heart rate of 16, saturation at 91%. HEENT: Unremarkable. NECK: Supple. LUNGS: Decreased breath sounds. HEART: Normal S1 and S2. ABDOMEN: Soft, nontender. LABORATORY DATA: Reveals a white count of 15,900, hemoglobin of 13, platelets of 394. BUN of 8, creatinine of 0.6. HIV is negative. Microbiology reveals a coag negative staph in blood. Repeat blood cultures are negative. Review of orders reveals the patient to be on meropenem, vancomycin. The patient had a chest x-ray read by Dr. James Bergeron, atelectasis versus consolidation. The patient also had CAT scan of the abdomen which reveals a large 8 x 6 x 4 fluid collection. This is read by Dr. Kati Hinojosa. ASSESSMENT AND PLAN: A 56-year-old female with acute cholecystitis, status post cholecystectomy, post procedure day #6 with coagulase negative staph in the blood, most likely a contamination. Postoperatively yesterday, the patient developed nausea and leukocytosis and today has right upper quadrant pain with sepsis with a collection abscess formation. Recommended invasive radiology per Dr. Dillon Valdez review the CAT scan and determine if we can have a percutaneous drainage by CAT scan directed. I also recommended a HIDA scan as discussed with to rule out biliary leak. Currently, on vancomycin and meropenam. Procalcitonin is pending. Repeat blood, urine, sputum cultures are pending and we will follow with you. Case discussed with the patient at length today and yesterday with the patient's daughter present. Dutch Saavedra MD
[2016-11-24] MEDS: NEBIVOLOL HCL 10 MG PO SCH (16:59)
[2016-11-24] MEDS: POLYETHYLENE GLYCOL 3350 17 GM/Dose PACKET PO SCH (17:00)
--- NOTE | 2016-11-24 20:20 | PN ---
SUBJECTIVE: The patient is a [id number] who was seen yesterday, was complaining of right upper quadrant pain. Her white count bumped up and she was having intractable nausea. Again her discharge was held. The patient had CT scan done that shows questionable seroma versus hematoma versus leakage of bile duct. So she has been started on IV antibiotic again. On examination this morning, she still complained of right upper quadrant discomfort, felt nauseous, does not have appetite. PHYSICAL EXAMINATION: VITAL SIGNS: She is afebrile, pulse 63, respirations 16, blood pressure 151/96. LUNGS: Bilateral fair airflow. No rhonchi or crackle. HEART: S1 and S2 audible. ABDOMEN: Soft. Right epigastric and right upper quadrant discomfort. NEUROLOGIC: She is awake and alert, communicative. LABORATORY DATA: WBC is 15.9, hemoglobin 13.9, hematocrit 42, and platelets of 394. Chemistry: Sodium 139, potassium 3.4, chloride 100, CO2 of 20, BUN 8, creatinine 0.6, blood sugar of 121. Her AST has bumped up to 218, ALT is 144, alkaline phosphatase is 220. HIDA scan is pending. ASSESSMENT: 1. Status post cholecystectomy. 2. Right upper quadrant collection in gallbladder fossa questionable seroma, hematoma versus bile leakage. PLAN: We will continue the patient on IV fluid, IV antibiotics. She has been started on vancomycin and meropenem. Surgical team is also following the patient. Discharge has been canceled. Parker Red MD /20:19:49<
[2016-11-25] MEDS: Albuterol-Ipratrop 3 mg / 0.5 (3 ml) UD IH SCH ×4 (02:40→20:38)
[2016-11-25] MEDS: Meropenem 1g/NS 100mL IVPB 1 GM/100 ML PIGGYBACK IVPB SCH ×3 (05:41→21:54)
[2016-11-25] MEDS: Dextrose 5%/0.45% NS 1,000 ML IV SCH ×2 (05:42→23:31)
[2016-11-25] MEDS ORDERED: Iohexol 240 (50 ml) ONE (08:02)
[2016-11-25] MEDS ORDERED: Indomethacin 50 MG Suppository PR ONE ×2 (08:04→16:04)
[2016-11-25 08:57] LABS: BASO # 0.02 K/mm3 (0.0-2.0); BASO % 0.1 % (0.0-3.0); EOS # 0.1 (0.0-0.7); EOS % 0.5 % (1.5-5.0); GRAN # 17.58 (1.4-6.5); GRAN % 85.4 % (50.0-68.0); HEMATOCRIT 42.1 % (36.0-48.0); LYMPH # 1.6 (1.2-3.4); LYMPH % 7.9 % (22.0-35.0); MEAN CELL VOLUME 84.9 fl (80.0-105.0); MEAN PLATELET VOLUME 9.7 fl (7.0-11.0); MONO # 1.3 (0.1-0.6); MONO % 6.1 % (1.0-6.0); RED CELL DISTRIBUTION WIDTH 14.9 % (11.5-14.5); WHITE BLOOD COUNT 20.6 10^3/ul (4.5-11.0)
[2016-11-25 09:04] LABS: INR 1.23 (0.93-1.08)
--- NOTE | 2016-11-25 09:05 | PN ---
DATE: 11/23/2016 Aleta Tripp is seen very comfortable. There is less drainage from the [place], 85 mL. It has a flash of bile in it. The volume is low. White count is 13. SGOT is normalizing. Bilirubin is normal. I think this is rather benign. We will follow. I will see her in the office if she is discharged and plan to do a HIDA scan if it is still persistent, but for now she is much more comfortable. Lazaro Sandhu MD
--- NOTE | 2016-11-25 09:11 | CP.PCM.PN ---
Subjective - Date & Time of Evaluation Date of Evaluation: 11/25/16 Time of Evaluation: 09:10 - Subjective Subjective: General Surgery Progress notes for Dr. Sandhu General Surgery Pt S&E, had RUQ pain requiring breakthrough IV morphine. Drain output: 80cc serobilious fluid overnight. Patient states she's not feeling well. tolerating diet. Objective - Vital Signs/Intake and Output Vital Signs (last 24 hours): Temp Pulse Resp BP Pulse Ox 98.3 F 85 20 124/88 92 L 11/25/16 07:32 11/25/16 07:32 11/25/16 07:32 11/25/16 07:32 11/25/16 07:32 Intake and Output: 11/25/16 11/25/16 06:59 18:59 Intake Total 1150 Output Total 100 Balance 1050 - Medications Medications: Current Medications Acetaminophen (Tylenol 325mg Tab) 975 mg PO Q8H [facility] Last Admin: 11/24/16 23:25 Dose: Not Given Albuterol/Ipratropium (Duoneb 3 Mg/0.5 Mg (3 Ml) Ud) 3 ml IH [id number] [facility] Last Admin: 11/25/16 07:44 Dose: Not Given Amlodipine Besylate (Norvasc) 10 mg PO DAILY [facility] Last Admin: 11/23/16 10:46 Dose: 10 mg Clonidine HCl (Catapres) 0.1 mg PO Q6 PRN PRN Reason: Diastolic blood pressure Last Admin: 11/22/16 15:21 Dose: 0.1 mg Docusate Sodium (Colace) 100 mg PO BID [facility] Last Admin: 11/24/16 17:00 Dose: 100 mg Enoxaparin Sodium (Lovenox) 40 mg SC DAILY [facility] PRN Reason: Protocol Last Admin: 11/24/16 15:55 Dose: Not Given Famotidine (Pepcid) 20 mg PO 1000,2200 [facility] Last Admin: 11/24/16 22:32 Dose: 20 mg Gabapentin (Neurontin) 200 mg PO BID [facility] PRN Reason: Protocol Last Admin: 11/24/16 16:59 Dose: 200 mg Dextrose/Sodium Chloride (Dextrose 5%/0.45% Ns 1000 Ml) 1,000 mls @ 75 mls/hr IV .[id number] [facility] Last Admin: 11/25/16 05:42 Dose: 75 mls/hr Meropenem 1g/NS 100mL IVPB (Meropenem 1g/Ns 100ml Ivpb) 1 gm in 100 mls @ 100 mls/hr IVPB Q8 [facility] PRN Reason: Protocol Stop: 12/02/16 11:16 Last Admin: 11/25/16 05:41 Dose: 100 mls/hr Vancomycin HCl (Vancomycin 1gm) 1 gm in 250 mls @ 167 mls/hr IVPB Q12H [facility] PRN Reason: Protocol Stop: 12/02/16 11:16 Last Admin: 11/24/16 23:23 Dose: 167 mls/hr Levothyroxine Sodium (Synthroid) 125 mcg PO DAILY [facility] Last Admin: 11/24/16 10:00 Dose: Not Given Morphine Sulfate (Morphine) 2 mg IVP Q3H PRN PRN Reason: Pain, moderate (4-7) Last Admin: 11/24/16 18:47 Dose: 2 mg Nebivolol Hcl [ (Bystolic] 10 Mg) 10 mg PO DAILY [facility] Last Admin: 11/24/16 16:59 Dose: 10 mg Ondansetron HCl (Zofran Inj) 4 mg IVP Q4H PRN PRN Reason: Nausea/Vomiting Last Admin: 11/25/16 01:46 Dose: 4 mg Oxycodone HCl (Oxycontin Extended Release Tab) 40 mg PO Q12 [facility] Last Admin: 11/24/16 22:30 Dose: 40 mg Oxycodone HCl (Oxycodone Immediate Release Tab) 15 mg PO Q6H PRN PRN Reason: Pain, moderate (4-7) Last Admin: 11/24/16 16:59 Dose: 15 mg Polyethylene Glycol (Miralax) 17 gm PO DAILY [facility] Last Admin: 11/24/16 17:00 Dose: 17 gm - Labs Labs: 11/25/16 08:40 11/24/16 07:30 PT 13.3 Seconds (9.9-11.8) H 11/25/16 08:40 INR 1.23 (0.93-1.08) H 11/25/16 08:40 APTT 29.5 Seconds (23.7-30.8) 11/18/16 04:25 - Constitutional Appears: Non-toxic - Head Exam Head Exam: NORMAL INSPECTION - Eye Exam Eye Exam: EOMI, Normal appearance - ENT Exam ENT Exam: Mucous Membranes Moist - Neck Exam Neck Exam: Full ROM - Respiratory Exam Respiratory Exam: Clear to Ausculation Bilateral, NORMAL BREATHING PATTERN. absent: Accessory Muscle Use, Respiratory Distress - Cardiovascular Exam Cardiovascular Exam: REGULAR RHYTHM, +S1, +S2 - GI/Abdominal Exam GI & Abdominal Exam: Soft, Tenderness Additional comments: drain in place. serobilious (green fluid) tenderness at midepigastric right upper quadrant. no rebound tenderness - Extremities Exam Extremities Exam: Full ROM - Neurological Exam Neurological Exam: Alert, Awake, Oriented x3 - Psychiatric Exam Psychiatric exam: Normal Affect, Normal Mood - Skin Skin Exam: Dry, Normal Color, Warm Additional comments: incisions c/d/i joel in place no erythema, drainage, purulence Assessment and Plan - Assessment and Plan (Free Text) Assessment: 56F POD#7 s/p lap converted to open cholecystectomy Plan: f/u HIDA Breakthrough pain meds as needed IVF @75cc/hr D/W Dr. Edson Cornejo, DO PGY1
[2016-11-25 09:19] LABS: ALKALINE PHOSPHATASE 251 U/L (38-126); ALT/SGPT 126 U/L (7-56); AST/SGOT 114 U/L (14-36); BILIRUBIN,TOTAL 0.7 mg/dL (0.2-1.3); BLOOD UREA NITROGEN 9 mg/dL (7-21); CALCIUM 8.8 mg/dL (8.4-10.5); CARBON DIOXIDE 29 mmol/L (21-33); CHLORIDE 97 mmol/L (98-107); GFR AFRICAN-AMERICAN > 60; GLUCOSE,RANDOM 92 mg/dL (70-110); POTASSIUM 3.6 mmol/L (3.6-5.0); SODIUM 136 mmol/L (132-148); TOTAL PROTEIN 6.3 g/dL (5.8-8.3)
[2016-11-25] MEDS: Morphine 2 mg/ml ISec IVP PRN ×4 (09:43→23:48)
[2016-11-25] MEDS: Enoxaparin 40 mg Syringe SC SCH (10:55)
[2016-11-25] MEDS: POLYETHYLENE GLYCOL 3350 17 GM/Dose PACKET PO SCH (10:55)
[2016-11-25] MEDS: Levothyroxine 125 MCG TAB PO SCH (10:56)
[2016-11-25] MEDS: oxyCODONE 20 mg ER Tab (oxyCONTIN) PO SCH ×2 (10:56→21:52)
[2016-11-25] MEDS: NEBIVOLOL HCL 10 MG PO SCH (10:56)
--- NOTE | 2016-11-25 10:59 | PN ---
DATE: SUBJECTIVE: A 56-year-old white female status post open cholecystectomy for cholelithiasis, and cholecystitis. The patient has had a fluid collection in the gallbladder bed that is not of consistency of an x-ray, possible biliary leak. The patient had HIDA scan yesterday. She has planned for an ERCP with stent to seal potential biliary leak and white count is elevated at 20,000. The patient is afebrile, complaining of persistent right upper quadrant and heart burn pain. PHYSICAL EXAMINATION VITAL SIGNS: Stable. CHEST: Clear to auscultation and percussion. There is some atelectasis and possible pneumonia on CT. ABDOMEN: The patient's bowel sounds are positive. The patient is moving her bowels. Bowel sounds are hypoactive and there is minimal tenderness in the right upper quadrant. EXTREMITIES: Without cyanosis, clubbing, or edema. IMPRESSION AND PLAN: Biliary leak, possible abscess versus bile fluid collection for endoscopic retrograde cholangio-pancreatography stent, possible drainage. The patient still has Nilo-Bowers drain. Vital signs are stable. Elevated white count. Dom Dover MD
--- NOTE | 2016-11-25 11:41 | CP.PCM.CON ---
<Matthew Tracy - Last Filed: 11/25/16 11:37> History of Present Illness - History of Present Illness History of Present Illness: GI Consult Note for Dr. Blunt 56 y/o F with PMH of HTN, hypothyroidism, and scoliosis initially presented to the hospital for epigastric pain for 3 days. Pt states pain radiated to her back and felt like indigestion. She did not take any medication for the pain, but once it became unbearable she came to the ED. Patient was found to have cholecystitis and was taken to the OR. After procedure, patient was still found to have abdominal pain with increased nausea. Patient had abdomen/pelvis CT ordered which showed a fluid collection in the cholecytectomy bed. Patient then underwent a HIDA scan which revealed a biliary leak with perihepatic spread. Currently, patient admits to epigastic abdominal pain in addition to her incisional pain from surgery. Pain is currently controlled by her medication. Denies CP, SOB, vomiting, diarrhea, constipation, hematemesis. PMH: HTN, hypothyroidism, scoliosis Surgical hx: Jhonny placement for spinal alignment, hysterectomy Social Hx: 1/2 ppd x 20 years, denies alcohol or illicit drug use FMH: Pancreatic cancer Allergies: NKDA Medications: Reviewed, as per chart Review of Systems - Review of Systems Review of Systems: 12 point ROS as per HPI, otherwise negative Past Patient History - Infectious Disease Hx of Infectious Diseases: None - Past Social History Smoking Status: Light Smoker < 10 Cigarettes Daily - CARDIAC Hx Hypertension: Yes - ENDOCRINE/METABOLIC Hx Hypothyroidism: Yes - HEMATOLOGICAL/ONCOLOGICAL Hx Blood Transfusions: No Hx Blood Transfusion Reaction: No - INTEGUMENTARY Other/Comment: large old surgical scar along spine from upper back to sacrum from sx for scoliosis at [facility] sx in [facility] age 11, jhonny in [address] - MUSCULOSKELETAL/RHEUMATOLOGICAL Hx Falls: No - PSYCHIATRIC Hx Substance Use: No - SURGICAL HISTORY Hx Surgeries: Yes - ANESTHESIA Hx Anesthesia Reactions: No Hx Malignant Hyperthermia: No Meds Allergies/Adverse Reactions: Allergies Allergy/AdvReac Type Severity Reaction Status Date / Time No Known Allergies Allergy Verified 10/16/15 20:38 - Medications Medications: Current Medications Acetaminophen (Tylenol 325mg Tab) 975 mg PO Q8H [facility] Last Admin: 11/24/16 23:25 Dose: Not Given Albuterol/Ipratropium (Duoneb 3 Mg/0.5 Mg (3 Ml) Ud) 3 ml IH [id number] [facility] Last Admin: 11/25/16 07:44 Dose: Not Given Amlodipine Besylate (Norvasc) 10 mg PO DAILY [facility] Last Admin: 11/25/16 10:56 Dose: Not Given Clonidine HCl (Catapres) 0.1 mg PO Q6 PRN PRN Reason: Diastolic blood pressure Last Admin: 11/22/16 15:21 Dose: 0.1 mg Docusate Sodium (Colace) 100 mg PO BID [facility] Last Admin: 11/25/16 10:55 Dose: Not Given Enoxaparin Sodium (Lovenox) 40 mg SC DAILY [facility] PRN Reason: Protocol Last Admin: 11/25/16 10:55 Dose: Not Given Famotidine (Pepcid) 20 mg PO 1000,2200 [facility] Last Admin: 11/25/16 10:56 Dose: Not Given Gabapentin (Neurontin) 200 mg PO BID [facility] PRN Reason: Protocol Last Admin: 11/25/16 10:56 Dose: Not Given Dextrose/Sodium Chloride (Dextrose 5%/0.45% Ns 1000 Ml) 1,000 mls @ 75 mls/hr IV .[id number] [facility] Last Admin: 11/25/16 05:42 Dose: 75 mls/hr Meropenem 1g/NS 100mL IVPB (Meropenem 1g/Ns 100ml Ivpb) 1 gm in 100 mls @ 100 mls/hr IVPB Q8 [facility] PRN Reason: Protocol Stop: 12/02/16 11:16 Last Admin: 11/25/16 05:41 Dose: 100 mls/hr Vancomycin HCl (Vancomycin 1gm) 1 gm in 250 mls @ 167 mls/hr IVPB Q12H [facility] PRN Reason: Protocol Stop: 12/02/16 11:16 Last Admin: 11/24/16 23:23 Dose: 167 mls/hr Levothyroxine Sodium (Synthroid) 125 mcg PO DAILY [facility] Last Admin: 11/25/16 10:56 Dose: Not Given Morphine Sulfate (Morphine) 2 mg IVP Q3H [facility]N PRN Reason: Pain, moderate (4-7) Last Admin: 11/25/16 09:43 Dose: 2 mg Nebivolol Hcl [ (Bystolic] 10 Mg) 10 mg PO DAILY [facility] Last Admin: 11/25/16 10:56 Dose: Not Given Ondansetron HCl (Zofran Inj) 4 mg IVP Q4H [facility]N PRN Reason: Nausea/Vomiting Last Admin: 11/25/16 09:43 Dose: 4 mg Oxycodone HCl (Oxycontin Extended Release Tab) 40 mg PO Q12 [facility] Last Admin: 11/25/16 10:56 Dose: Not Given Oxycodone HCl (Oxycodone Immediate Release Tab) 15 mg PO Q6H PRN PRN Reason: Pain, moderate (4-7) Last Admin: 11/24/16 16:59 Dose: 15 mg Polyethylene Glycol (Miralax) 17 gm PO DAILY [facility] Last Admin: 11/25/16 10:55 Dose: Not Given Physical Exam - Constitutional Appears: Non-toxic, No Acute Distress - Head Exam Head Exam: ATRAUMATIC, NORMAL INSPECTION, NORMOCEPHALIC - ENT Exam ENT Exam: Mucous Membranes Moist, Normal Exam - Respiratory Exam Respiratory Exam: Clear to Auscultation Bilateral, NORMAL BREATHING PATTERN. absent: Rales, Rhonchi, Wheezes - Cardiovascular Exam Cardiovascular Exam: RRR, +S1, +S2 - GI/Abdominal Exam GI & Abdominal Exam: Normal Bowel Sounds, Soft, Tenderness (Epigastric) Additional comments: BHARGAV drain in place in RUQ Surgical incision line in RUQ - Extremities Exam Extremities exam: Negative for: calf tenderness, pedal edema - Neurological Exam Neurological exam: Alert, CN II-XII Intact, Oriented x3 - Psychiatric Exam Psychiatric exam: Normal Affect, Normal Mood - Skin Skin Exam: Intact, Normal Color, Warm Results - Vital Signs Recent Vital Signs: Last Vital Signs Temp 98.3 F 11/25/16 07:32 Pulse 85 11/25/16 07:32 Resp 20 11/25/16 07:32 BP 124/88 11/25/16 07:32 Pulse Ox 92 L 11/25/16 07:32 - Labs Result Diagrams: 11/25/16 08:40 11/25/16 08:40 Labs: Laboratory Results - last 24 hr 11/25/16 11/25/16 11/25/16 08:40 08:40 08:40 WBC 20.6 H D RBC 4.96 Hgb 13.9 Hct 42.1 MCV 84.9 MCH 28.0 MCHC 33.0 RDW 14.9 H Plt Count 430 MPV 9.7 Gran % 85.4 H Lymph % (Auto) 7.9 L White % (Auto) 6.1 H Eos % (Auto) 0.5 L Baso % (Auto) 0.1 Gran # 17.58 H Lymph # 1.6 White # 1.3 H Eos # 0.1 Baso # 0.02 PT 13.3 H INR 1.23 H Sodium 136 Potassium 3.6 Chloride 97 L Carbon Dioxide 29 Anion Gap 14 BUN 9 Creatinine 0.6 Est GFR ( Amer) > 60 Est GFR (Non-Af Amer) > 60 Random Glucose 92 Calcium 8.8 Total Bilirubin 0.7 AST 114 H D ALT 126 H Alkaline Phosphatase 251 H Total Protein 6.3 Albumin 3.2 Globulin 3.1 Albumin/Globulin Ratio 1.0 L Assessment & Plan - Assessment and Plan (Free Text) Plan: 56 y/o F with PMH of HTN, hypothyroidism, and scoliosis presents with bile leak secondary to cholecystectomy. Patient will require an ERCP with stent placement. Patient will undergo procedure this afternoon. Pt will continue antibiotic use as per primary care team. Surgery is also following. Plan: ERCP this afternoon Antiemetics for nausea Continue pain management Continue antibiotics as per primary care team Rossana, PGY-2 <Sher Blunt Y - Last Filed: 11/25/16 12:30> Meds - Medications Medications: Current Medications Acetaminophen (Tylenol 325mg Tab) 975 mg PO Q8H [facility] Last Admin: 11/24/16 23:25 Dose: Not Given Albuterol/Ipratropium (Duoneb 3 Mg/0.5 Mg (3 Ml) Ud) 3 ml IH [id number] [facility] Last Admin: 11/25/16 07:44 Dose: Not Given Amlodipine Besylate (Norvasc) 10 mg PO DAILY [facility] Last Admin: 11/25/16 10:56 Dose: Not Given Clonidine HCl (Catapres) 0.1 mg PO Q6 PRN PRN Reason: Diastolic blood pressure Last Admin: 11/22/16 15:21 Dose: 0.1 mg Docusate Sodium (Colace) 100 mg PO BID [facility] Last Admin: 11/25/16 10:55 Dose: Not Given Enoxaparin Sodium (Lovenox) 40 mg SC DAILY [facility] PRN Reason: Protocol Last Admin: 11/25/16 10:55 Dose: Not Given Famotidine (Pepcid) 20 mg PO 1000,2200 [facility] Last Admin: 11/25/16 10:56 Dose: Not Given Gabapentin (Neurontin) 200 mg PO BID [facility] PRN Reason: Protocol Last Admin: 11/25/16 10:56 Dose: Not Given Dextrose/Sodium Chloride (Dextrose 5%/0.45% Ns 1000 Ml) 1,000 mls @ 75 mls/hr IV .[id number] [facility] Last Admin: 11/25/16 05:42 Dose: 75 mls/hr Meropenem 1g/NS 100mL IVPB (Meropenem 1g/Ns 100ml Ivpb) 1 gm in 100 mls @ 100 mls/hr IVPB Q8 [facility] PRN Reason: Protocol Stop: 12/02/16 11:16 Last Admin: 11/25/16 05:41 Dose: 100 mls/hr Vancomycin HCl (Vancomycin 1gm) 1 gm in 250 mls @ 167 mls/hr IVPB Q12H [facility] PRN Reason: Protocol Stop: 12/02/16 11:16 Last Admin: 11/25/16 12:04 Dose: 167 mls/hr Levothyroxine Sodium (Synthroid) 125 mcg PO DAILY [facility] Last Admin: 11/25/16 10:56 Dose: Not Given Morphine Sulfate (Morphine) 2 mg IVP Q3H PRN PRN Reason: Pain, moderate (4-7) Last Admin: 11/25/16 09:43 Dose: 2 mg Nebivolol Hcl [ (Bystolic] 10 Mg) 10 mg PO DAILY [facility] Last Admin: 11/25/16 10:56 Dose: Not Given Ondansetron HCl (Zofran Inj) 4 mg IVP Q4H PRN PRN Reason: Nausea/Vomiting Last Admin: 11/25/16 09:43 Dose: 4 mg Oxycodone HCl (Oxycontin Extended Release Tab) 40 mg PO Q12 [facility] Last Admin: 11/25/16 10:56 Dose: Not Given Oxycodone HCl (Oxycodone Immediate Release Tab) 15 mg PO Q6H [facility]N PRN Reason: Pain, moderate (4-7) Last Admin: 11/24/16 16:59 Dose: 15 mg Polyethylene Glycol (Miralax) 17 gm PO DAILY [facility] Last Admin: 11/25/16 10:55 Dose: Not Given Results - Vital Signs Recent Vital Signs: Last Vital Signs Temp 98.3 F 11/25/16 07:32 Pulse 85 11/25/16 07:32 Resp 20 11/25/16 07:32 BP 124/88 11/25/16 07:32 Pulse Ox 92 L 11/25/16 07:32 - Labs Result Diagrams: 11/25/16 08:40 11/25/16 08:40 Labs: Laboratory Results - last 24 hr 11/25/16 11/25/16 11/25/16 08:40 08:40 08:40 WBC 20.6 H D RBC 4.96 Hgb 13.9 Hct 42.1 MCV 84.9 MCH 28.0 MCHC 33.0 RDW 14.9 H Plt Count 430 MPV 9.7 Gran % 85.4 H Lymph % (Auto) 7.9 L White % (Auto) 6.1 H Eos % (Auto) 0.5 L Baso % (Auto) 0.1 Gran # 17.58 H Lymph # 1.6 White # 1.3 H Eos # 0.1 Baso # 0.02 PT 13.3 H INR 1.23 H Sodium 136 Potassium 3.6 Chloride 97 L Carbon Dioxide 29 Anion Gap 14 BUN 9 Creatinine 0.6 Est GFR ( Amer) > 60 Est GFR (Non-Af Amer) > 60 Random Glucose 92 Calcium 8.8 Total Bilirubin 0.7 AST 114 H D ALT 126 H Alkaline Phosphatase 251 H Total Protein 6.3 Albumin 3.2 Globulin 3.1 Albumin/Globulin Ratio 1.0 L Attending/Attestation - Attestation I have personally seen and examined this patient.: Yes I have fully participated in the care of the patient.: Yes I have reviewed all pertinent clinical information: Yes Notes (Text): 11/25/16 12:23 I have seen and examined patient with GI fellow and medical aide. Agree with above documentation with the following additions. In brief, this is a 56 year old female with history of HTN, hypothyroidism, scoliosis who initially presented to hospital with complaint of abdominal pain over the past 1 week. She was diagnosed with acute cholecystitis and underwent open cholecystectomy on 11/19/16. Her post operative course has been complicated by ongoing abdominal pain and transaminitis. Subsequent workup revealed presence of biliary leak which was confirmed on recent HIDA testing, GI called for further intervention. Patient complains of sharp epigastric 6/10 intensity pain which radiates to RUQ. She also reports ongoing nausea but denies vomiting, diarrhea , fever/chills. Additional physical examination: Abdomen: no palpable hepato/splenomegaly HTN Hypothyroidism Scoliosis Acute cholecystitis, s/p cholecystectomy Transaminitis, abdominal pain - bile leak confirmed via HIDA - NPO - Continue with antibiotic therapy - Monitor blood cultures - Patient will need to undergo ERCP evaluation with stent placement for further therapy of confirmed bile leak, to be scheduled today - Continue to monitor LFTs - Pain control, anti-emetic therapy PRN - Further recommendations following endoscopic therapy
[2016-11-25] MEDS: Vancomycin 1gm in NS 250ml 1 GM/250 ML BAG IVPB SCH ×2 (12:04→23:33)
[2016-11-25] MEDS ORDERED: Propofol 10 mg/ml Inj (20 ML) ONE (15:38)
--- NOTE | 2016-11-25 16:21 | NM ---
PROCEDURE: Nuclear Medicine Hepatobiliary Scan HISTORY: possible bile leak COMPARISON: None availableGo. TECHNIQUE: 6.6 mCi of technetium 99m Mebrofenin was administered intravenously. Planar images of the abdomen were obtained at 5 min intervals to 60 mins. Delayed images were also obtained. FINDINGS: Accumulation of radionuclide in the gallbladder fossa consistent with clinically suspected bile leak. Radionuclide tracks along the subhepatic space and also seen on delayed images in the subdiaphragmatic space. IMPRESSION: Positive study for postoperative biliary leak. Concordant results (preliminary interpretation) provided by [facility]. Procedure Completed: 13:47. Preliminary ([facility]) Report: Dictated and Authenticated: 15:27. Final Interpretation: 16:15 macro today's
[2016-11-25] MEDS ORDERED: Sodium Chloride 0.9% 1,000 ML IV SCH (16:45)
[2016-11-26] MEDS: Albuterol-Ipratrop 3 mg / 0.5 (3 ml) UD IH SCH ×4 (03:04→20:05)
[2016-11-26] MEDS: Morphine 2 mg/ml ISec IVP PRN ×4 (03:24→17:36)
[2016-11-26] MEDS: oxyCODONE 15 mg Immediate Release Tab PO PRN ×2 (04:04→20:26)
[2016-11-26] MEDS: Meropenem 1g/NS 100mL IVPB 1 GM/100 ML PIGGYBACK IVPB SCH ×3 (06:56→21:43)
--- NOTE | 2016-11-26 07:33 | CP.PCM.PN ---
<Matthew Tracy - Last Filed: 11/26/16 16:38> Subjective - Date & Time of Evaluation Date of Evaluation: 11/26/16 Time of Evaluation: 07:28 - Subjective Subjective: GI Progress Note Pt seen and examined at bedside. Pt successfully underwent ERCP yesterday with stent placement. Pt still complains of generalized abdominal pain, worse in the LLQ. Pt unable to tolerate liquid diet last night and has nausea along with one episode of vomiting overnight. 12 point ROS performed, negative unless otherwise stated. Objective - Vital Signs/Intake and Output Vital Signs (last 24 hours): Temp Pulse Resp BP Pulse Ox 98.6 F 98 H 17 141/84 97 11/25/16 17:43 11/25/16 17:43 11/25/16 17:43 11/25/16 17:43 11/25/16 17:43 Intake and Output: 11/26/16 11/26/16 06:59 18:59 Intake Total 660 Balance 660 - Medications Medications: Current Medications Acetaminophen (Tylenol 325mg Tab) 975 mg PO Q8H [facility] Last Admin: 11/26/16 06:57 Dose: Not Given Albuterol/Ipratropium (Duoneb 3 Mg/0.5 Mg (3 Ml) Ud) 3 ml IH [id number] [facility] Last Admin: 11/26/16 03:04 Dose: Not Given Amlodipine Besylate (Norvasc) 10 mg PO DAILY [facility] Last Admin: 11/25/16 10:56 Dose: Not Given Clonidine HCl (Catapres) 0.1 mg PO Q6 PRN PRN Reason: Diastolic blood pressure Last Admin: 11/22/16 15:21 Dose: 0.1 mg Docusate Sodium (Colace) 100 mg PO BID [facility] Last Admin: 11/25/16 18:01 Dose: Not Given Enoxaparin Sodium (Lovenox) 40 mg SC DAILY [facility] PRN Reason: Protocol Last Admin: 11/25/16 10:55 Dose: Not Given Famotidine (Pepcid) 20 mg PO 1000,2200 [facility] Last Admin: 11/25/16 21:52 Dose: 20 mg Gabapentin (Neurontin) 200 mg PO BID [facility] PRN Reason: Protocol Last Admin: 11/25/16 18:02 Dose: Not Given Dextrose/Sodium Chloride (Dextrose 5%/0.45% Ns 1000 Ml) 1,000 mls @ 75 mls/hr IV .[id number] [facility] Last Admin: 11/25/16 23:31 Dose: 75 mls/hr Meropenem 1g/NS 100mL IVPB (Meropenem 1g/Ns 100ml Ivpb) 1 gm in 100 mls @ 100 mls/hr IVPB Q8 [facility] PRN Reason: Protocol Stop: 12/02/16 11:16 Last Admin: 11/26/16 06:56 Dose: 100 mls/hr Vancomycin HCl (Vancomycin 1gm) 1 gm in 250 mls @ 167 mls/hr IVPB Q12H [facility] PRN Reason: Protocol Stop: 12/02/16 11:16 Last Admin: 11/25/16 23:33 Dose: 167 mls/hr Sodium Chloride (Sodium Chloride 0.9%) 1,000 mls @ 100 mls/hr IV .Q10H [facility] Levothyroxine Sodium (Synthroid) 125 mcg PO DAILY [facility] Last Admin: 11/25/16 10:56 Dose: Not Given Morphine Sulfate (Morphine) 2 mg IVP Q3H PRN PRN Reason: Pain, moderate (4-7) Last Admin: 11/26/16 07:16 Dose: 2 mg Nebivolol Hcl [ (Bystolic] 10 Mg) 10 mg PO DAILY [facility] Last Admin: 11/25/16 10:56 Dose: Not Given Ondansetron HCl (Zofran Inj) 4 mg IVP Q4H PRN PRN Reason: Nausea/Vomiting Last Admin: 11/26/16 07:22 Dose: 4 mg Oxycodone HCl (Oxycontin Extended Release Tab) 40 mg PO Q12 [facility] Last Admin: 11/25/16 21:52 Dose: 40 mg Oxycodone HCl (Oxycodone Immediate Release Tab) 15 mg PO Q6H PRN PRN Reason: Pain, moderate (4-7) Last Admin: 11/26/16 04:04 Dose: 15 mg Polyethylene Glycol (Miralax) 17 gm PO DAILY [facility] Last Admin: 11/25/16 10:55 Dose: Not Given - Labs Labs: 11/25/16 08:40 11/25/16 08:40 PT 13.3 Seconds (9.9-11.8) H 11/25/16 08:40 INR 1.23 (0.93-1.08) H 11/25/16 08:40 APTT 29.5 Seconds (23.7-30.8) 11/18/16 04:25 - Constitutional Appears: Non-toxic, No Acute Distress - Head Exam Head Exam: ATRAUMATIC, NORMAL INSPECTION, NORMOCEPHALIC - Respiratory Exam Respiratory Exam: Clear to Ausculation Bilateral, NORMAL BREATHING PATTERN. absent: Rales, Rhonchi, Wheezes - Cardiovascular Exam Cardiovascular Exam: RRR, +S1, +S2 - GI/Abdominal Exam GI & Abdominal Exam: Distended (Mild), Soft, Tenderness (Diffuse, mainly in LLQ) , Normal Bowel Sounds. absent: Guarding, Rebound - Extremities Exam Extremities Exam: absent: Calf Tenderness, Pedal Edema - Neurological Exam Neurological Exam: Alert, Awake, Oriented x3 - Psychiatric Exam Psychiatric exam: Normal Affect, Normal Mood - Skin Skin Exam: Intact, Normal Color, Warm Assessment and Plan - Assessment and Plan (Free Text) Plan: 56 y/o F with PMH of HTN, hypothyroidism, and scoliosis presents with bile leak secondary to cholecystectomy s/p ERCP with stent placement. Pt successfully had stent placed yesterday. Elevated Lipase level this morning indicates ERCP induced pancreatitis. Pt will be placed on IVF and monitored closely. Pt will need to have stent removed between 6-8 weeks. Surgery continues to follow. Plan: Aggressive LR @ 200 cc/hr Will consider CT Pancreas if symptoms do not improve Monitor blood cultures Trend LFTs Antiemetics for nausea Continue pain management Continue antibiotics as per primary care team Will continue to monitor Rossana, PGY-2 <Clint Gonzalez - Last Filed: 11/26/16 16:47> Objective - Vital Signs/Intake and Output Vital Signs (last 24 hours): Temp Pulse Resp BP Pulse Ox 98.2 F 72 20 164/98 H 93 L 11/26/16 07:30 11/26/16 07:30 11/26/16 07:30 11/26/16 10:09 11/26/16 07:30 Intake and Output: 11/26/16 11/26/16 06:59 18:59 Intake Total 1560 Output Total 60 Balance 1500 - Medications Medications: Current Medications Acetaminophen (Tylenol 325mg Tab) 975 mg PO Q8H [facility] Last Admin: 11/26/16 15:40 Dose: Not Given Albuterol/Ipratropium (Duoneb 3 Mg/0.5 Mg (3 Ml) Ud) 3 ml IH [id number] [facility] Last Admin: 11/26/16 13:54 Dose: 3 ml Amlodipine Besylate (Norvasc) 10 mg PO DAILY [facility] Last Admin: 11/26/16 10:09 Dose: 10 mg Clonidine HCl (Catapres) 0.1 mg PO Q6 PRN PRN Reason: Diastolic blood pressure Last Admin: 11/22/16 15:21 Dose: 0.1 mg Docusate Sodium (Colace) 100 mg PO BID [facility] Last Admin: 11/26/16 10:08 Dose: 100 mg Enoxaparin Sodium (Lovenox) 40 mg SC DAILY [facility] PRN Reason: Protocol Last Admin: 11/26/16 10:09 Dose: 40 mg Famotidine (Pepcid) 20 mg PO 1000,2200 [facility] Last Admin: 11/26/16 10:08 Dose: 20 mg Meropenem 1g/NS 100mL IVPB (Meropenem 1g/Ns 100ml Ivpb) 1 gm in 100 mls @ 100 mls/hr IVPB Q8 [facility] PRN Reason: Protocol Stop: 12/02/16 11:16 Last Admin: 11/26/16 15:51 Dose: 100 mls/hr Vancomycin HCl (Vancomycin 1gm) 1 gm in 250 mls @ 167 mls/hr IVPB Q12H [facility] PRN Reason: Protocol Stop: 12/02/16 11:16 Last Admin: 11/26/16 12:06 Dose: 167 mls/hr Sodium Chloride (Sodium Chloride 0.9%) 1,000 mls @ 100 mls/hr IV .Q10H [facility] Lactated Ringer's (Lactated Ringer's) 2,000 mls @ 1,000 mls/hr IV .Q2H [facility] Last Admin: 11/26/16 09:33 Dose: 1,000 mls/hr Lactated Ringer's (Lactated Ringer's) 1,000 mls @ 200 mls/hr IV .Q5H [facility] Last Admin: 11/26/16 15:52 Dose: 200 mls/hr Levothyroxine Sodium (Synthroid) 125 mcg PO DAILY [facility] Last Admin: 11/26/16 15:54 Dose: Not Given Nebivolol Hcl [ (Bystolic] 10 Mg) 10 mg PO DAILY [facility] Last Admin: 11/26/16 10:12 Dose: 10 mg Ondansetron HCl (Zofran Inj) 4 mg IVP Q4H PRN PRN Reason: Nausea/Vomiting Last Admin: 11/26/16 13:37 Dose: 4 mg Oxycodone HCl (Oxycontin Extended Release Tab) 40 mg PO Q12 [facility] Last Admin: 11/26/16 10:07 Dose: 40 mg Oxycodone HCl (Oxycodone Immediate Release Tab) 15 mg PO Q6H PRN PRN Reason: Pain, moderate (4-7) Last Admin: 11/26/16 04:04 Dose: 15 mg Polyethylene Glycol (Miralax) 17 gm PO DAILY [facility] Last Admin: 11/26/16 12:02 Dose: Not Given - Labs Labs: 11/26/16 07:30 11/26/16 07:30 PT 13.3 Seconds (9.9-11.8) H 11/25/16 08:40 INR 1.23 (0.93-1.08) H 11/25/16 08:40 APTT 29.5 Seconds (23.7-30.8) 11/18/16 04:25 Attending/Attestation - Attestation I have personally seen and examined this patient.: Yes I have fully participated in the care of the patient.: Yes I have reviewed all pertinent clinical information, including history, physical exam and plan: Yes Notes (Text): 11/26/16 16:45 56 year old female a/w acute cholecystitis s/o open cholecystectomy c/b bile leak now s/p ERCP with stent placement, with evidence of post ercp pancreatitis. 1. Bile leak 2. Pancreatitis Plan: -bile leak from cystic duct stump -s/p placement of 10 fr x 9 cm biliary stent -abdominal pain today and elevated lipase, will rx for pancreatitis with hydration / bowel rest -continue abx -will follow
[2016-11-26 07:53] LABS: BASO # 0.01 K/mm3 (0.0-2.0); BASO % 0.1 % (0.0-3.0); EOS % 0.2 % (1.5-5.0); GRAN # 15.05 (1.4-6.5); GRAN % 90.6 % (50.0-68.0); HEMATOCRIT 45.2 % (36.0-48.0); LYMPH # 0.8 (1.2-3.4); LYMPH % 4.9 % (22.0-35.0); MEAN CELL VOLUME 84.5 fl (80.0-105.0); MEAN CORPUSCULAR HEMOGLOBIN 28.2 pg (25.0-35.0); MEAN CORPUSCULAR HGB CONC 33.4 g/dl (31.0-37.0); MEAN PLATELET VOLUME 9.4 fl (7.0-11.0); MONO # 0.7 (0.1-0.6); MONO % 4.2 % (1.0-6.0); PLATELET COUNT 445 10^3/uL (120.0-450.0); RED CELL DISTRIBUTION WIDTH 14.9 % (11.5-14.5); WHITE BLOOD COUNT 16.6 10^3/ul (4.5-11.0)
[2016-11-26 08:21] LABS: ALKALINE PHOSPHATASE 298 U/L (38-126); ALT/SGPT 106 U/L (7-56); AST/SGOT 74 U/L (14-36); BILIRUBIN,TOTAL 0.7 mg/dL (0.2-1.3); BLOOD UREA NITROGEN 11 mg/dL (7-21); CALCIUM 8.5 mg/dL (8.4-10.5); CARBON DIOXIDE 30 mmol/L (21-33); CHLORIDE 100 mmol/L (98-107); GFR AFRICAN-AMERICAN > 60; GLUCOSE,RANDOM 111 mg/dL (70-110); POTASSIUM 3.7 mmol/L (3.6-5.0); SODIUM 141 mmol/L (132-148); TOTAL PROTEIN 6.6 g/dL (5.8-8.3)
[2016-11-26 08:23] LABS: ANISOCYTOSIS SLIGHT; NEUTROPHIL 91 % (50.0-70.0); PLATELET ESTIMATE HIGH (NORMAL)
[2016-11-26] MEDS ORDERED: Lactated Ringer's 2,000 ML IV SCH (09:30)
[2016-11-26] MEDS ORDERED: Lactated Ringer's 1,000 ML IV SCH (09:30)
[2016-11-26] MEDS: oxyCODONE 20 mg ER Tab (oxyCONTIN) PO SCH ×2 (10:07→21:46)
[2016-11-26] MEDS: Enoxaparin 40 mg Syringe SC SCH (10:09)
[2016-11-26] MEDS: NEBIVOLOL HCL 10 MG PO SCH (10:12)
--- NOTE | 2016-11-26 11:26 | CP.PCM.PN ---
Subjective - Date & Time of Evaluation Date of Evaluation: 11/26/16 Time of Evaluation: 11:23 - Subjective Subjective: General Surgery Progress note for Dr. Sandhu Patient had an episode of bilious emesis overnight per nursing notes. Per Nursing staff this morning, patient had 300cc bilious emesis after breakfast. Patient states her abdominal pain is better, but continues to feel nauseous. Patient denies F/C, Diarrhea. 24 Hr Drain OP: 180 cc bilious fluid (silk screen operator green than yesterday). upon return to rounds with attending, drain had 5cc of bright yellow bilious fluid. Objective - Vital Signs/Intake and Output Vital Signs (last 24 hours): Temp Pulse Resp BP Pulse Ox 98.2 F 72 20 164/98 H 93 L 11/26/16 07:30 11/26/16 07:30 11/26/16 07:30 11/26/16 10:09 11/26/16 07:30 Intake and Output: 11/26/16 11/26/16 06:59 18:59 Intake Total 1560 Output Total 60 Balance 1500 - Medications Medications: Current Medications Acetaminophen (Tylenol 325mg Tab) 975 mg PO Q8H [facility] Last Admin: 11/26/16 06:57 Dose: Not Given Albuterol/Ipratropium (Duoneb 3 Mg/0.5 Mg (3 Ml) Ud) 3 ml IH [id number] [facility] Last Admin: 11/26/16 07:27 Dose: 3 ml Amlodipine Besylate (Norvasc) 10 mg PO DAILY [facility] Last Admin: 11/26/16 10:09 Dose: 10 mg Clonidine HCl (Catapres) 0.1 mg PO Q6 PRN PRN Reason: Diastolic blood pressure Last Admin: 11/22/16 15:21 Dose: 0.1 mg Docusate Sodium (Colace) 100 mg PO BID [facility] Last Admin: 11/26/16 10:08 Dose: 100 mg Enoxaparin Sodium (Lovenox) 40 mg SC DAILY [facility] PRN Reason: Protocol Last Admin: 11/26/16 10:09 Dose: 40 mg Famotidine (Pepcid) 20 mg PO 1000,2200 [facility] Last Admin: 11/26/16 10:08 Dose: 20 mg Gabapentin (Neurontin) 200 mg PO BID [facility] PRN Reason: Protocol Last Admin: 11/26/16 10:08 Dose: 200 mg Meropenem 1g/NS 100mL IVPB (Meropenem 1g/Ns 100ml Ivpb) 1 gm in 100 mls @ 100 mls/hr IVPB Q8 [facility] PRN Reason: Protocol Stop: 12/02/16 11:16 Last Admin: 11/26/16 06:56 Dose: 100 mls/hr Vancomycin HCl (Vancomycin 1gm) 1 gm in 250 mls @ 167 mls/hr IVPB Q12H [facility] PRN Reason: Protocol Stop: 12/02/16 11:16 Last Admin: 11/25/16 23:33 Dose: 167 mls/hr Sodium Chloride (Sodium Chloride 0.9%) 1,000 mls @ 100 mls/hr IV .Q10H [facility] Lactated Ringer's (Lactated Ringer's) 2,000 mls @ 1,000 mls/hr IV .Q2H [facility] Last Admin: 11/26/16 09:33 Dose: 1,000 mls/hr Lactated Ringer's (Lactated Ringer's) 1,000 mls @ 200 mls/hr IV .Q5H [facility] Levothyroxine Sodium (Synthroid) 125 mcg PO DAILY [facility] Last Admin: 11/25/16 10:56 Dose: Not Given Morphine Sulfate (Morphine) 2 mg IVP Q3H PRN PRN Reason: Pain, moderate (4-7) Last Admin: 11/26/16 07:16 Dose: 2 mg Nebivolol Hcl [ (Bystolic] 10 Mg) 10 mg PO DAILY [facility] Last Admin: 11/26/16 10:12 Dose: 10 mg Ondansetron HCl (Zofran Inj) 4 mg IVP Q4H PRN PRN Reason: Nausea/Vomiting Last Admin: 11/26/16 07:22 Dose: 4 mg Oxycodone HCl (Oxycontin Extended Release Tab) 40 mg PO Q12 [facility] Last Admin: 11/26/16 10:07 Dose: 40 mg Oxycodone HCl (Oxycodone Immediate Release Tab) 15 mg PO Q6H PRN PRN Reason: Pain, moderate (4-7) Last Admin: 11/26/16 04:04 Dose: 15 mg Polyethylene Glycol (Miralax) 17 gm PO DAILY [facility] Last Admin: 11/25/16 10:55 Dose: Not Given - Labs Labs: 11/26/16 07:30 11/26/16 07:30 PT 13.3 Seconds (9.9-11.8) H 11/25/16 08:40 INR 1.23 (0.93-1.08) H 11/25/16 08:40 APTT 29.5 Seconds (23.7-30.8) 11/18/16 04:25 - Constitutional Appears: Non-toxic, Other (patient appears fatigued) - Head Exam Head Exam: NORMAL INSPECTION - Eye Exam Eye Exam: EOMI, Normal appearance - ENT Exam ENT Exam: Mucous Membranes Moist - Neck Exam Neck Exam: Full ROM, Normal Inspection - Respiratory Exam Respiratory Exam: Clear to Ausculation Bilateral, NORMAL BREATHING PATTERN. absent: Accessory Muscle Use, Respiratory Distress - Cardiovascular Exam Cardiovascular Exam: REGULAR RHYTHM, +S1, +S2. absent: Bradycardia, Tachycardia - GI/Abdominal Exam GI & Abdominal Exam: Guarding (minimal upon palpation of LUQ), Soft, Tenderness (LUQ tenderness. no rebound). absent: Rigid, Rebound - Extremities Exam Extremities Exam: Full ROM, Normal Inspection. absent: Pedal Edema - Back Exam Back Exam: Full ROM, NORMAL INSPECTION - Neurological Exam Neurological Exam: Alert, Awake, Oriented x3 - Psychiatric Exam Psychiatric exam: Normal Affect, Normal Mood - Skin Skin Exam: Dry, Intact, Normal Color, Warm Assessment and Plan - Assessment and Plan (Free Text) Assessment: 56F POD#8 s/p lap converted to open cholecystectomy Plan: t bili 0.7 AST/ALT 74/106 ALP 298 continue monitor LFTs, drain output I/Os IVF increased d/t emesis 2L LR fluid bolus LR 200cc/hr per GI stent placed yesterday, to be removed in 6 weeks per GI [facility] pain meds as needed D/W Dr. Edson Cornejo, DO PGY1
[2016-11-26] MEDS: POLYETHYLENE GLYCOL 3350 17 GM/Dose PACKET PO SCH (12:02)
[2016-11-26] MEDS: Vancomycin 1gm in NS 250ml 1 GM/250 ML BAG IVPB SCH ×2 (12:06→23:09)
--- NOTE | 2016-11-26 13:36 | CP.PCM.PN ---
Subjective - Date & Time of Evaluation Date of Evaluation: 11/26/16 Time of Evaluation: 12:05 - Subjective Subjective: No abdominal pain currently, no fevers overnight, had ERCP with biliary stent placement yesterday and the patient tolerated the procedure well. Objective - Vital Signs/Intake and Output Vital Signs (last 24 hours): Temp Pulse Resp BP Pulse Ox 98.2 F 72 20 164/98 H 93 L 11/26/16 07:30 11/26/16 07:30 11/26/16 07:30 11/26/16 10:09 11/26/16 07:30 Intake and Output: 11/26/16 11/26/16 06:59 18:59 Intake Total 1560 Output Total 60 Balance 1500 - Medications Medications: Current Medications Acetaminophen (Tylenol 325mg Tab) 975 mg PO Q8H [facility] Last Admin: 11/26/16 06:57 Dose: Not Given Albuterol/Ipratropium (Duoneb 3 Mg/0.5 Mg (3 Ml) Ud) 3 ml IH [id number] [facility] Last Admin: 11/26/16 07:27 Dose: 3 ml Amlodipine Besylate (Norvasc) 10 mg PO DAILY [facility] Last Admin: 11/26/16 10:09 Dose: 10 mg Clonidine HCl (Catapres) 0.1 mg PO Q6 PRN PRN Reason: Diastolic blood pressure Last Admin: 11/22/16 15:21 Dose: 0.1 mg Docusate Sodium (Colace) 100 mg PO BID [facility] Last Admin: 11/26/16 10:08 Dose: 100 mg Enoxaparin Sodium (Lovenox) 40 mg SC DAILY [facility] PRN Reason: Protocol Last Admin: 11/26/16 10:09 Dose: 40 mg Famotidine (Pepcid) 20 mg PO 1000,2200 [facility] Last Admin: 11/26/16 10:08 Dose: 20 mg Gabapentin (Neurontin) 200 mg PO BID [facility] PRN Reason: Protocol Last Admin: 11/26/16 10:08 Dose: 200 mg Meropenem 1g/NS 100mL IVPB (Meropenem 1g/Ns 100ml Ivpb) 1 gm in 100 mls @ 100 mls/hr IVPB Q8 [facility] PRN Reason: Protocol Stop: 12/02/16 11:16 Last Admin: 11/26/16 06:56 Dose: 100 mls/hr Vancomycin HCl (Vancomycin 1gm) 1 gm in 250 mls @ 167 mls/hr IVPB Q12H [facility] PRN Reason: Protocol Stop: 12/02/16 11:16 Last Admin: 11/25/16 23:33 Dose: 167 mls/hr Sodium Chloride (Sodium Chloride 0.9%) 1,000 mls @ 100 mls/hr IV .Q10H [facility] Lactated Ringer's (Lactated Ringer's) 2,000 mls @ 1,000 mls/hr IV .Q2H [facility] Last Admin: 11/26/16 09:33 Dose: 1,000 mls/hr Lactated Ringer's (Lactated Ringer's) 1,000 mls @ 200 mls/hr IV .Q5H [facility] Levothyroxine Sodium (Synthroid) 125 mcg PO DAILY [facility] Last Admin: 11/25/16 10:56 Dose: Not Given Morphine Sulfate (Morphine) 2 mg IVP Q3H PRN PRN Reason: Pain, moderate (4-7) Last Admin: 11/26/16 07:16 Dose: 2 mg Nebivolol Hcl [ (Bystolic] 10 Mg) 10 mg PO DAILY [facility] Last Admin: 11/26/16 10:12 Dose: 10 mg Ondansetron HCl (Zofran Inj) 4 mg IVP Q4H PRN PRN Reason: Nausea/Vomiting Last Admin: 11/26/16 07:22 Dose: 4 mg Oxycodone HCl (Oxycontin Extended Release Tab) 40 mg PO Q12 [facility] Last Admin: 11/26/16 10:07 Dose: 40 mg Oxycodone HCl (Oxycodone Immediate Release Tab) 15 mg PO Q6H PRN PRN Reason: Pain, moderate (4-7) Last Admin: 11/26/16 04:04 Dose: 15 mg Polyethylene Glycol (Miralax) 17 gm PO DAILY [facility] Last Admin: 11/25/16 10:55 Dose: Not Given - Labs Labs: 11/26/16 07:30 11/26/16 07:30 PT 13.3 Seconds (9.9-11.8) H 11/25/16 08:40 INR 1.23 (0.93-1.08) H 11/25/16 08:40 APTT 29.5 Seconds (23.7-30.8) 11/18/16 04:25 - Constitutional Appears: Non-toxic, No Acute Distress - Head Exam Head Exam: NORMAL INSPECTION - ENT Exam ENT Exam: Mucous Membranes Moist - Neck Exam Neck Exam: absent: Lymphadenopathy, Meningismus - Respiratory Exam Respiratory Exam: Decreased Breath Sounds - Cardiovascular Exam Cardiovascular Exam: +S1, +S2 - GI/Abdominal Exam GI & Abdominal Exam: Soft. absent: Tenderness Assessment and Plan - Assessment and Plan (Free Text) Plan: Assessment acute cholecystitis S/P open cholecystectomy, now with biliary leak S/P ERCP and biliary stent placement POD #1 Coagulase negative staph in blood cx, probably contamination chronic back pain and scoliosis and spinal stenosis S/P rods and hardware placement many years ago HTN hypothyroidism S/P hysterectomy Plan continue Vancomycin and Merrem day 4; continue to trend WBC count (which is slowly trending downwards) will monitor clinically
[2016-11-26] MEDS: Lactated Ringer's 1,000 ML IV SCH ×2 (15:52→23:09)
[2016-11-26] MEDS: Levothyroxine 125 MCG TAB PO SCH (15:54)
--- NOTE | 2016-11-26 18:12 | PN ---
DATE: SUBJECTIVE: The patient is a 56-year-old white female with status post laparoscopic open cholecystectomy. The patient was found recent a biliary leak with accumulation of fluid in the gallbladder fossa. The patient had ERCP with stent placement yesterday. She did have elevation of her amylase and lipase and began to having bilious vomiting today x2 and nausea. The patient most likely has post ERCP pancreatitis. PHYSICAL EXAMINATION VITAL SIGNS: She is afebrile. Her vital signs are stable. Blood pressure is 164/98, temperature is 98.2. ABDOMEN: Nondistended. Bowel sounds are hypoactive. She is tender in the right upper quadrant. CHEST: Clear to auscultation and percussion. HEART: Sinus rhythm. LABORATORY DATA: Her white count actually dropped from 20,000 to 13,000. White cells is down to 16,600. Potassium and kidney function are normal. PLAN: Continue hydration. Make the patient n.p.o. Follow her amylase and lipase. Decrease the dose of pain medication due to possible side effects. Zofran or Reglan when needed. Dom Dover MD
[2016-11-27] MEDS: Albuterol-Ipratrop 3 mg / 0.5 (3 ml) UD IH SCH ×4 (01:05→19:53)
[2016-11-27] MEDS: Meropenem 1g/NS 100mL IVPB 1 GM/100 ML PIGGYBACK IVPB SCH ×3 (05:54→21:20)
[2016-11-27] MEDS: Lactated Ringer's 1,000 ML IV SCH ×2 (07:47→18:08)
--- NOTE | 2016-11-27 07:48 | CP.PCM.PN ---
<Matthew Tracy - Last Filed: 11/27/16 10:53> Subjective - Date & Time of Evaluation Date of Evaluation: 11/27/16 Time of Evaluation: 07:45 - Subjective Subjective: GI Progress Note Pt seen and examined at bedside. No acute events overnight as per nursing. Pt with much improved nausea and abdominal pain. Patient is hungry and would like solid food at this time. 12 point ROS performed, negative unless otherwise stated. Objective - Vital Signs/Intake and Output Vital Signs (last 24 hours): Temp Pulse Resp BP Pulse Ox 99.7 F H 98 H 20 154/95 H 94 L 11/27/16 00:01 11/27/16 00:01 11/27/16 00:01 11/27/16 00:01 11/27/16 00:01 Intake and Output: 11/27/16 11/27/16 06:59 18:59 Intake Total 4360 Output Total 110 Balance 4250 - Medications Medications: Current Medications Acetaminophen (Tylenol 325mg Tab) 975 mg PO Q8H [facility] Last Admin: 11/26/16 22:15 Dose: Not Given Albuterol/Ipratropium (Duoneb 3 Mg/0.5 Mg (3 Ml) Ud) 3 ml IH [id number] [facility] Last Admin: 11/27/16 07:22 Dose: 3 ml Amlodipine Besylate (Norvasc) 10 mg PO DAILY [facility] Last Admin: 11/26/16 10:09 Dose: 10 mg Clonidine HCl (Catapres) 0.1 mg PO Q6 PRN PRN Reason: Diastolic blood pressure Last Admin: 11/22/16 15:21 Dose: 0.1 mg Docusate Sodium (Colace) 100 mg PO BID [facility] Last Admin: 11/26/16 18:43 Dose: Not Given Enoxaparin Sodium (Lovenox) 40 mg SC DAILY [facility] PRN Reason: Protocol Last Admin: 11/26/16 10:09 Dose: 40 mg Famotidine (Pepcid) 20 mg PO 1000,2200 [facility] Last Admin: 11/26/16 21:43 Dose: 20 mg Meropenem 1g/NS 100mL IVPB (Meropenem 1g/Ns 100ml Ivpb) 1 gm in 100 mls @ 100 mls/hr IVPB Q8 [facility] PRN Reason: Protocol Stop: 12/02/16 11:16 Last Admin: 11/27/16 05:54 Dose: 100 mls/hr Vancomycin HCl (Vancomycin 1gm) 1 gm in 250 mls @ 167 mls/hr IVPB Q12H [facility] PRN Reason: Protocol Stop: 12/02/16 11:16 Last Admin: 11/26/16 23:09 Dose: 167 mls/hr Lactated Ringer's (Lactated Ringer's) 1,000 mls @ 200 mls/hr IV .Q5H [facility] Last Admin: 11/26/16 23:09 Dose: 200 mls/hr Levothyroxine Sodium (Synthroid) 125 mcg PO DAILY [facility] Last Admin: 11/26/16 15:54 Dose: Not Given Metoclopramide HCl (Reglan) 10 mg IVP ACHS [facility] Last Admin: 11/26/16 21:55 Dose: 10 mg Morphine Sulfate (Morphine) 2 mg IVP Q3H PRN PRN Reason: Pain, severe (8-10) Last Admin: 11/26/16 17:36 Dose: 2 mg Nebivolol Hcl [ (Bystolic] 10 Mg) 10 mg PO DAILY [facility] Last Admin: 11/26/16 10:12 Dose: 10 mg Ondansetron HCl (Zofran Inj) 4 mg IVP Q4H PRN PRN Reason: Nausea/Vomiting Last Admin: 11/26/16 13:37 Dose: 4 mg Oxycodone HCl (Oxycontin Extended Release Tab) 40 mg PO Q12 [facility] Last Admin: 11/26/16 21:46 Dose: 40 mg Oxycodone HCl (Oxycodone Immediate Release Tab) 15 mg PO Q6H PRN PRN Reason: Pain, moderate (4-7) Last Admin: 11/26/16 20:26 Dose: 15 mg Polyethylene Glycol (Miralax) 17 gm PO DAILY [facility] Last Admin: 11/26/16 12:02 Dose: Not Given - Labs Labs: 11/26/16 07:30 11/26/16 07:30 PT 13.3 Seconds (9.9-11.8) H 11/25/16 08:40 INR 1.23 (0.93-1.08) H 11/25/16 08:40 APTT 29.5 Seconds (23.7-30.8) 11/18/16 04:25 - Constitutional Appears: Non-toxic, No Acute Distress - Head Exam Head Exam: ATRAUMATIC, NORMAL INSPECTION, NORMOCEPHALIC - Respiratory Exam Respiratory Exam: Clear to Ausculation Bilateral, NORMAL BREATHING PATTERN. absent: Rales, Rhonchi, Wheezes - Cardiovascular Exam Cardiovascular Exam: RRR, +S1, +S2 - GI/Abdominal Exam GI & Abdominal Exam: Soft, Tenderness (Mild discomfort in epigastric region), Normal Bowel Sounds Additional comments: BHARGAV drain in place in RUQ Surgical staple line intact - Extremities Exam Extremities Exam: absent: Calf Tenderness, Pedal Edema - Neurological Exam Neurological Exam: Alert, Awake, Oriented x3 - Psychiatric Exam Psychiatric exam: Normal Affect, Normal Mood Assessment and Plan - Assessment and Plan (Free Text) Plan: 56 y/o F with PMH of HTN, hypothyroidism, and scoliosis presents with bile leak secondary to cholecystectomy s/p ERCP with stent placement complicated by pancreatitis. Pt continues to have drainage BHARGAV drain, will order CT abdomen/ pelvis to reassess fluid collection. Pt will remain on IVF and monitored closely. Pt will have diet advanced this morning. Pt will need to have stent removed between 6-8 weeks. Surgery continues to follow. Plan: CT abdomen/pelvis Full Liquid diet Miralax to help with bowel regimen Aggressive LR @ 200 cc/hr Monitor blood cultures Trend LFTs Antiemetics for nausea Continue pain management Continue antibiotics as per primary care team Will continue to monitor Rossana, PGY-2 <John Riggs MD - Last Filed: 11/27/16 20:51> Objective - Vital Signs/Intake and Output Vital Signs (last 24 hours): Temp Pulse Resp BP Pulse Ox 98.7 F 92 H 20 125/88 92 L 11/27/16 16:00 11/27/16 16:00 11/27/16 16:00 11/27/16 16:00 11/27/16 16:00 Intake and Output: 11/27/16 11/28/16 18:59 06:59 Intake Total 600 Balance 600 - Medications Medications: Current Medications Acetaminophen (Tylenol 325mg Tab) 975 mg PO Q8H [facility] Last Admin: 11/27/16 14:10 Dose: Not Given Albuterol/Ipratropium (Duoneb 3 Mg/0.5 Mg (3 Ml) Ud) 3 ml IH [id number] [facility] Last Admin: 11/27/16 19:53 Dose: 3 ml Amlodipine Besylate (Norvasc) 10 mg PO DAILY [facility] Last Admin: 11/27/16 10:15 Dose: 10 mg Clonidine HCl (Catapres) 0.1 mg PO Q6 PRN PRN Reason: Diastolic blood pressure Last Admin: 11/22/16 15:21 Dose: 0.1 mg Docusate Sodium (Colace) 100 mg PO BID [facility] Last Admin: 11/27/16 18:04 Dose: 100 mg Enoxaparin Sodium (Lovenox) 40 mg SC DAILY [facility] PRN Reason: Protocol Last Admin: 11/27/16 10:18 Dose: 40 mg Famotidine (Pepcid) 20 mg PO 1000,2200 [facility] Last Admin: 11/27/16 10:14 Dose: 20 mg Meropenem 1g/NS 100mL IVPB (Meropenem 1g/Ns 100ml Ivpb) 1 gm in 100 mls @ 100 mls/hr IVPB Q8 [facility] PRN Reason: Protocol Stop: 12/02/16 11:16 Last Admin: 11/27/16 18:06 Dose: 100 mls/hr Vancomycin HCl (Vancomycin 1gm) 1 gm in 250 mls @ 167 mls/hr IVPB Q12H [facility] PRN Reason: Protocol Stop: 12/02/16 11:16 Last Admin: 11/27/16 10:31 Dose: 167 mls/hr Lactated Ringer's (Lactated Ringer's) 1,000 mls @ 200 mls/hr IV .Q5H [facility] Last Admin: 11/27/16 18:08 Dose: 200 mls/hr Levothyroxine Sodium (Synthroid) 125 mcg PO DAILY [facility] Last Admin: 11/27/16 10:34 Dose: 125 mcg Metoclopramide HCl (Reglan) 10 mg IVP ACHS [facility] Last Admin: 11/27/16 18:06 Dose: 10 mg Morphine Sulfate (Morphine) 2 mg IVP Q3H PRN PRN Reason: Pain, severe (8-10) Last Admin: 11/26/16 17:36 Dose: 2 mg Nebivolol Hcl [ (Bystolic] 10 Mg) 10 mg PO DAILY [facility] Last Admin: 11/27/16 10:17 Dose: 10 mg Ondansetron HCl (Zofran Inj) 4 mg IVP Q4H PRN PRN Reason: Nausea/Vomiting Last Admin: 11/26/16 13:37 Dose: 4 mg Oxycodone HCl (Oxycontin Extended Release Tab) 40 mg PO Q12 [facility] Last Admin: 11/27/16 10:16 Dose: 40 mg Oxycodone HCl (Oxycodone Immediate Release Tab) 15 mg PO Q6H PRN PRN Reason: Pain, moderate (4-7) Last Admin: 11/26/16 20:26 Dose: 15 mg Polyethylene Glycol (Miralax) 17 gm PO DAILY [facility] Last Admin: 11/27/16 10:14 Dose: 17 gm - Labs Labs: 11/27/16 10:58 11/27/16 07:45 PT 13.3 Seconds (9.9-11.8) H 11/25/16 08:40 INR 1.23 (0.93-1.08) H 11/25/16 08:40 APTT 29.5 Seconds (23.7-30.8) 11/18/16 04:25 Attending/Attestation - Attestation I have personally seen and examined this patient.: Yes I have fully participated in the care of the patient.: Yes I have reviewed all pertinent clinical information, including history, physical exam and plan: Yes Notes (Text): 11/27/16 20:49 Patient seenw [facility] GI fellow and resident on rounds this am. This is a 56 year old female a/w acute cholecystitis s/o open cholecystectomy c/b bile leak now s/ p ERCP with stent placement, with evidence of post ercp pancreatitis which is resolving. Today leukocytosis worse with abdomina pain. Will obtain CTAP with contrast. Continue antibiotics.
[2016-11-27 08:06] LABS: BASO # 0.02 K/mm3 (0.0-2.0); BASO % 0.1 % (0.0-3.0); EOS # 0.1 (0.0-0.7); EOS % 0.4 % (1.5-5.0); GRAN # 28.32 (1.4-6.5); GRAN % 88.1 % (50.0-68.0); HEMATOCRIT 41.1 % (36.0-48.0); LYMPH % 6.1 % (22.0-35.0); MEAN CELL VOLUME 84.9 fl (80.0-105.0); MEAN CORPUSCULAR HEMOGLOBIN 28.1 pg (25.0-35.0); MEAN CORPUSCULAR HGB CONC 33.1 g/dl (31.0-37.0); MEAN PLATELET VOLUME 9.5 fl (7.0-11.0); MONO # 1.7 (0.1-0.6); MONO % 5.3 % (1.0-6.0); RED CELL DISTRIBUTION WIDTH 15.2 % (11.5-14.5)
[2016-11-27 08:11] LABS: WHITE BLOOD COUNT 32.1 10^3/ul (4.5-11.0)
[2016-11-27 08:23] LABS: ALKALINE PHOSPHATASE 267 U/L (38-126); ALT/SGPT 75 U/L (7-56); AST/SGOT 43 U/L (14-36); BILIRUBIN,TOTAL 0.6 mg/dL (0.2-1.3); BLOOD UREA NITROGEN 8 mg/dL (7-21); CALCIUM 8.2 mg/dL (8.4-10.5); CARBON DIOXIDE 29 mmol/L (21-33); CHLORIDE 99 mmol/L (98-107); GFR AFRICAN-AMERICAN > 60; GLUCOSE,RANDOM 81 mg/dL (70-110); POTASSIUM 3.8 mmol/L (3.6-5.0); SODIUM 137 mmol/L (132-148); TOTAL PROTEIN 5.6 g/dL (5.8-8.3)
[2016-11-27 09:20] LABS: AMYLASE 257 U/L (35-125); LIPASE 1779 U/L (23-300)
[2016-11-27] MEDS: POLYETHYLENE GLYCOL 3350 17 GM/Dose PACKET PO SCH (10:14)
[2016-11-27] MEDS: oxyCODONE 20 mg ER Tab (oxyCONTIN) PO SCH ×2 (10:16→21:21)
[2016-11-27] MEDS: NEBIVOLOL HCL 10 MG PO SCH (10:17)
[2016-11-27] MEDS: Enoxaparin 40 mg Syringe SC SCH (10:18)
[2016-11-27] MEDS ORDERED: Iohexol 350 MG/100 ML VIAL ONE (10:29)
[2016-11-27] MEDS: Vancomycin 1gm in NS 250ml 1 GM/250 ML BAG IVPB SCH ×2 (10:31→22:18)
--- NOTE | 2016-11-27 10:31 | PN ---
DATE: SUBJECTIVE: A 56-year-old white female who is status post open cholecystectomy, status post biliary leak, status post ERCP with stent. The patient had post ERCP pancreatitis. The patient is feeling markedly better today. She had episodes of vomiting yesterday. PHYSICAL EXAMINATION: GENERAL: She is afebrile today. VITAL SIGNS: Her blood pressure is down to 155/90. LABORATORY DATA: Her white count is elevated at 32,100. H and H within normal limits. BUN and creatinine are stable. The patient's abdomen is distended. Bowel sounds are hypoactive. She is passing some gas, has not had a bowel movement. The patient had slept well last night, had no further complications. Plan is to ambulate out of bed. Continue IV antibiotics. Possible relook at the CT and the fluid collection in the gallbladder bed, possible drainage. Continue close surgical observation. Dom Dover MD
[2016-11-27] MEDS: Levothyroxine 125 MCG TAB PO SCH (10:34)
--- NOTE | 2016-11-27 11:37 | RAD ---
HISTORY: temp and elevated wbcs COMPARISON: Chest radiographs 11/23/2016. FINDINGS: LUNGS: Diminishing bilateral bibasilar patchy atelectasis or infiltrates with linear atelectasis identified at both lung bases. PLEURA: No significant pleural effusion identified, no pneumothorax apparent. CARDIOVASCULAR: Cardiomediastinal silhouette appears stable with incidental note again made of thoracolumbar spinal fusion rods. OSSEOUS STRUCTURES: As above. VISUALIZED UPPER ABDOMEN: Normal. OTHER FINDINGS: None. IMPRESSION: Diminishing bilateral basilar atelectasis or infiltrates with linear atelectasis identified in both bases mildly.
[2016-11-27 12:56] LABS: BASO # 0.03 K/mm3 (0.0-2.0); BASO % 0.1 % (0.0-3.0); EOS # 0.1 (0.0-0.7); EOS % 0.3 % (1.5-5.0); GRAN # 30.77 (1.4-6.5); GRAN % 89.8 % (50.0-68.0); HEMATOCRIT 39.7 % (36.0-48.0); LYMPH # 1.6 (1.2-3.4); LYMPH % 4.8 % (22.0-35.0); MEAN CELL VOLUME 84.8 fl (80.0-105.0); MEAN CORPUSCULAR HEMOGLOBIN 28.2 pg (25.0-35.0); MEAN CORPUSCULAR HGB CONC 33.2 g/dl (31.0-37.0); MEAN PLATELET VOLUME 9.2 fl (7.0-11.0); MONO # 1.7 (0.1-0.6); PLATELET COUNT 449 10^3/uL (120.0-450.0); RED CELL DISTRIBUTION WIDTH 15.2 % (11.5-14.5)
[2016-11-27 12:59] LABS: WHITE BLOOD COUNT 34.3 10^3/ul (4.5-11.0)
[2016-11-27 14:27] LABS: BAND 4 % (0-2); NEUTROPHIL 86 % (50.0-70.0)
[2016-11-27 14:28] LABS: ANISOCYTOSIS SLIGHT; PLATELET ESTIMATE HIGH (NORMAL)
--- NOTE | 2016-11-27 14:33 | CP.PCM.PN ---
Subjective - Date & Time of Evaluation Date of Evaluation: 11/27/16 Time of Evaluation: 08:00 - Subjective Subjective: General Surgery note for Dr. Edson PARHAM. Patient states she was nauseas but feels much better. Patient states that she wants to eat. Patient denies F/C, constipation. Drain output: 110 cc bilious Nurse paged and GI ordered CT scan d/t elevated WBC downtrending pancreatic enzymes 11/26 amylase 760, lipase 9802, 11/27 amylase 257 , lipase 1779 WBC 32.1 Diet advanced per GI, HHD Objective - Vital Signs/Intake and Output Vital Signs (last 24 hours): Temp Pulse Resp BP Pulse Ox 98.3 F 95 H 20 155/90 H 97 11/27/16 08:22 11/27/16 08:22 11/27/16 08:22 11/27/16 10:15 11/27/16 08:22 Intake and Output: 11/27/16 11/27/16 06:59 18:59 Intake Total 4360 600 Output Total 110 Balance 4250 600 - Medications Medications: Current Medications Acetaminophen (Tylenol 325mg Tab) 975 mg PO Q8H [facility] Last Admin: 11/27/16 10:32 Dose: Not Given Albuterol/Ipratropium (Duoneb 3 Mg/0.5 Mg (3 Ml) Ud) 3 ml IH [id number] [facility] Last Admin: 11/27/16 13:23 Dose: 3 ml Amlodipine Besylate (Norvasc) 10 mg PO DAILY [facility] Last Admin: 11/27/16 10:15 Dose: 10 mg Clonidine HCl (Catapres) 0.1 mg PO Q6 PRN PRN Reason: Diastolic blood pressure Last Admin: 11/22/16 15:21 Dose: 0.1 mg Docusate Sodium (Colace) 100 mg PO BID [facility] Last Admin: 11/26/16 18:43 Dose: Not Given Enoxaparin Sodium (Lovenox) 40 mg SC DAILY [facility] PRN Reason: Protocol Last Admin: 11/27/16 10:18 Dose: 40 mg Famotidine (Pepcid) 20 mg PO 1000,2200 [facility] Last Admin: 11/27/16 10:14 Dose: 20 mg Meropenem 1g/NS 100mL IVPB (Meropenem 1g/Ns 100ml Ivpb) 1 gm in 100 mls @ 100 mls/hr IVPB Q8 [facility] PRN Reason: Protocol Stop: 12/02/16 11:16 Last Admin: 11/27/16 05:54 Dose: 100 mls/hr Vancomycin HCl (Vancomycin 1gm) 1 gm in 250 mls @ 167 mls/hr IVPB Q12H [facility] PRN Reason: Protocol Stop: 12/02/16 11:16 Last Admin: 11/27/16 10:31 Dose: 167 mls/hr Lactated Ringer's (Lactated Ringer's) 1,000 mls @ 200 mls/hr IV .Q5H [facility] Last Admin: 11/27/16 07:47 Dose: 200 mls/hr Levothyroxine Sodium (Synthroid) 125 mcg PO DAILY [facility] Last Admin: 11/27/16 10:34 Dose: 125 mcg Metoclopramide HCl (Reglan) 10 mg IVP ACHS [facility] Last Admin: 11/27/16 09:01 Dose: 10 mg Morphine Sulfate (Morphine) 2 mg IVP Q3H PRN PRN Reason: Pain, severe (8-10) Last Admin: 11/26/16 17:36 Dose: 2 mg Nebivolol Hcl [ (Bystolic] 10 Mg) 10 mg PO DAILY [facility] Last Admin: 11/27/16 10:17 Dose: 10 mg Ondansetron HCl (Zofran Inj) 4 mg IVP Q4H PRN PRN Reason: Nausea/Vomiting Last Admin: 11/26/16 13:37 Dose: 4 mg Oxycodone HCl (Oxycontin Extended Release Tab) 40 mg PO Q12 [facility] Last Admin: 11/27/16 10:16 Dose: 40 mg Oxycodone HCl (Oxycodone Immediate Release Tab) 15 mg PO Q6H PRN PRN Reason: Pain, moderate (4-7) Last Admin: 11/26/16 20:26 Dose: 15 mg Polyethylene Glycol (Miralax) 17 gm PO DAILY [facility] Last Admin: 11/27/16 10:14 Dose: 17 gm - Labs Labs: 11/27/16 10:58 11/27/16 07:45 PT 13.3 Seconds (9.9-11.8) H 11/25/16 08:40 INR 1.23 (0.93-1.08) H 11/25/16 08:40 APTT 29.5 Seconds (23.7-30.8) 11/18/16 04:25 - Constitutional Appears: Non-toxic - Head Exam Head Exam: NORMAL INSPECTION - Eye Exam Eye Exam: EOMI, Normal appearance - ENT Exam ENT Exam: Mucous Membranes Moist - Neck Exam Neck Exam: Full ROM - Respiratory Exam Respiratory Exam: Clear to Ausculation Bilateral, NORMAL BREATHING PATTERN. absent: Accessory Muscle Use, Respiratory Distress Assessment and Plan - Assessment and Plan (Free Text) Assessment: 56F POD#9 s/p lap converted to open cholecystectomy Plan: Plan: LFTs downtrending Diet: HHD continue monitor LFTs, drain output I/Os IVF increased d/t emesis 2L LR fluid bolus LR 200cc/hr per GI stent placed 11/25, to be removed in 6 weeks per GI [facility] pain meds as needed D/W Dr. Edson Cornejo, DO PGY1
--- NOTE | 2016-11-27 14:53 | CP.PCM.PN ---
Subjective - Date & Time of Evaluation Date of Evaluation: 11/27/16 Time of Evaluation: 12:05 - Subjective Subjective: Comfortable, not in distress, afebrile, less abdominal pain although feels bloated. Had episodes of vomiting yesterday but not this morning, no BM's yet. Objective - Vital Signs/Intake and Output Vital Signs (last 24 hours): Temp Pulse Resp BP Pulse Ox 98.3 F 95 H 20 155/90 H 97 11/27/16 08:22 11/27/16 08:22 11/27/16 08:22 11/27/16 10:15 11/27/16 08:22 Intake and Output: 11/27/16 11/27/16 06:59 18:59 Intake Total 4360 Output Total 110 Balance 4250 - Medications Medications: Current Medications Acetaminophen (Tylenol 325mg Tab) 975 mg PO Q8H [facility] Last Admin: 11/27/16 10:32 Dose: Not Given Albuterol/Ipratropium (Duoneb 3 Mg/0.5 Mg (3 Ml) Ud) 3 ml IH [id number] [facility] Last Admin: 11/27/16 07:22 Dose: 3 ml Amlodipine Besylate (Norvasc) 10 mg PO DAILY [facility] Last Admin: 11/27/16 10:15 Dose: 10 mg Clonidine HCl (Catapres) 0.1 mg PO Q6 PRN PRN Reason: Diastolic blood pressure Last Admin: 11/22/16 15:21 Dose: 0.1 mg Docusate Sodium (Colace) 100 mg PO BID [facility] Last Admin: 11/26/16 18:43 Dose: Not Given Enoxaparin Sodium (Lovenox) 40 mg SC DAILY [facility] PRN Reason: Protocol Last Admin: 11/27/16 10:18 Dose: 40 mg Famotidine (Pepcid) 20 mg PO 1000,2200 [facility] Last Admin: 11/27/16 10:14 Dose: 20 mg Meropenem 1g/NS 100mL IVPB (Meropenem 1g/Ns 100ml Ivpb) 1 gm in 100 mls @ 100 mls/hr IVPB Q8 [facility] PRN Reason: Protocol Stop: 12/02/16 11:16 Last Admin: 11/27/16 05:54 Dose: 100 mls/hr Vancomycin HCl (Vancomycin 1gm) 1 gm in 250 mls @ 167 mls/hr IVPB Q12H [facility] PRN Reason: Protocol Stop: 12/02/16 11:16 Last Admin: 11/27/16 10:31 Dose: 167 mls/hr Lactated Ringer's (Lactated Ringer's) 1,000 mls @ 200 mls/hr IV .Q5H [facility] Last Admin: 11/27/16 07:47 Dose: 200 mls/hr Levothyroxine Sodium (Synthroid) 125 mcg PO DAILY [facility] Last Admin: 11/27/16 10:34 Dose: 125 mcg Metoclopramide HCl (Reglan) 10 mg IVP ACHS [facility] Last Admin: 11/27/16 09:01 Dose: 10 mg Morphine Sulfate (Morphine) 2 mg IVP Q3H PRN PRN Reason: Pain, severe (8-10) Last Admin: 11/26/16 17:36 Dose: 2 mg Nebivolol Hcl [ (Bystolic] 10 Mg) 10 mg PO DAILY [facility] Last Admin: 11/27/16 10:17 Dose: 10 mg Ondansetron HCl (Zofran Inj) 4 mg IVP Q4H PRN PRN Reason: Nausea/Vomiting Last Admin: 11/26/16 13:37 Dose: 4 mg Oxycodone HCl (Oxycontin Extended Release Tab) 40 mg PO Q12 [facility] Last Admin: 11/27/16 10:16 Dose: 40 mg Oxycodone HCl (Oxycodone Immediate Release Tab) 15 mg PO Q6H PRN PRN Reason: Pain, moderate (4-7) Last Admin: 11/26/16 20:26 Dose: 15 mg Polyethylene Glycol (Miralax) 17 gm PO DAILY [facility] Last Admin: 11/27/16 10:14 Dose: 17 gm - Labs Labs: 11/27/16 07:45 11/27/16 07:45 PT 13.3 Seconds (9.9-11.8) H 11/25/16 08:40 INR 1.23 (0.93-1.08) H 11/25/16 08:40 APTT 29.5 Seconds (23.7-30.8) 11/18/16 04:25 - Constitutional Appears: Non-toxic, No Acute Distress - Head Exam Head Exam: NORMAL INSPECTION - ENT Exam ENT Exam: Mucous Membranes Moist - Neck Exam Neck Exam: absent: Meningismus - Respiratory Exam Respiratory Exam: Decreased Breath Sounds - Cardiovascular Exam Cardiovascular Exam: +S1, +S2 - GI/Abdominal Exam GI & Abdominal Exam: Soft. absent: Tenderness Assessment and Plan - Assessment and Plan (Free Text) Plan: Assessment acute cholecystitis S/P open cholecystectomy, now with biliary leak S/P ERCP and biliary stent placement POD #2 Coagulase negative staph in blood cx, probably contamination chronic back pain and scoliosis and spinal stenosis S/P rods and hardware placement many years ago HTN hypothyroidism S/P hysterectomy Plan continue Vancomycin and Merrem day 5; continue to trend WBC count (it increased significantly today - if it continues to increase and/or abdominal pain worsens , will need repeat CT A/P) will continue to monitor clinically
--- NOTE | 2016-11-27 15:00 | CT ---
PROCEDURE: CT Abdomen and Pelvis with contrast HISTORY: worsening WBC,biliary leak,recent stent placement COMPARISON: Abdomen pelvis CT without contrast 11/23/2016. TECHNIQUE: Contrast dose: Omnipaque 350, 100 cc. Radiation dose: Total exam DLP = 1138.09 MGy-cm. This CT exam was performed using one or more of the following dose reduction techniques: Automated exposure control, adjustment of the mA and/or kV according to patient size, and/or use of iterative reconstruction technique. FINDINGS: LOWER THORAX: Persistent bilateral basilar dependent atelectasis appreciate the right side greater than left with a small nodule identified at the inferior-most margins of the right upper lobe in image 1 series 2. LIVER: Fluid is increased in knee perineal cavity with mild perihepatic ascites appreciated. Biliary stents identified in position originating at the central intrahepatic bile ducts and terminating at the region of the 2nd portion the duodenum. Fluid remains at the gallbladder fossa which is increased in volume with peripheral moderate enhancement but no emphysematous changes related. Pattern suspicious for abscess collection measuring 10.0 x 6.7 cm with an adjacent collection enhancing further measuring 2.3 x 3.4 cm. A 3rd collection is seen anterior to the junction of the left and right lobes of the liver measuring 5.7 x 2.5 cm. Finally, 3.4 x 6.8 cm peripherally enhancing fluid collection is difficult to separate from small bowel an abscess is probable here. Oral contrast CT may be useful for better definition here. No additional definite enhancing fluid collection is seen in the peritoneal cavity. Pelvic ascites identified. GALLBLADDER AND BILE DUCTS: Prior cholecystectomy. Biliary stent noted as discussed above. PANCREAS: No definite pancreatic duct dilatation is appreciated however hazy margins are seen surrounding the pancreas body and tail which may be sympathetic to bile leak/ascites. Limited fluid is seen the left para renal space with a minimal amount of the right para renal space. Clinically correlate for potential pancreatitis. SPLEEN: 1.5 cm lucency seen in the spleen which may represent a benign hemangioma but is indeterminate. ADRENALS: Unremarkable. No mass. KIDNEYS AND URETERS: Unremarkable. No hydronephrosis. No solid mass. VASCULATURE: Unremarkable. No aortic aneurysm. BOWEL: Unremarkable. No obstruction. No gross mural thickening. APPENDIX: Not identified. PERITONEUM: Eluded ascites and fluid collections as seen in the liver section above. Surgical drainage catheter again identified unchanged in position grossly. LYMPH NODES: Unremarkable. No enlarged lymph nodes. BLADDER: Unremarkable. REPRODUCTIVE: Unremarkable. BONES: Scoliotic spinal deformity again appreciated with Gottlieb rods generating artifacts obscuring the exam somewhat. OTHER FINDINGS: None. IMPRESSION: Interval worsening of gallbladder fossa fluid fluid collection with peripheral enhancement suspicious for abscess measuring up to 10.1 cm greatest dimension. Additional small fluid collections are adjacent to it measuring 3.4 and 5.7 cm greatest dimension as discussed above. 6.8 cm abscess is difficult to exclude at the inferior right pelvis as well. Please see discussion above. Mild abdominal pelvic ascites. Peripancreatic reaction is not excluded and clinical correlation for pancreatitis is advised. No pancreatic duct dilatation is grossly evident. Biliary stent appears in adequate position in the interval. Additional lesser findings as discussed above.
[2016-11-28] MEDS: Lactated Ringer's 1,000 ML IV SCH ×3 (01:00→17:55)
[2016-11-28] MEDS: Albuterol-Ipratrop 3 mg / 0.5 (3 ml) UD IH SCH ×4 (01:08→20:09)
[2016-11-28] MEDS: Meropenem 1g/NS 100mL IVPB 1 GM/100 ML PIGGYBACK IVPB SCH ×3 (05:55→21:22)
--- NOTE | 2016-11-28 07:18 | CP.PCM.PN ---
<Matthew Tracy - Last Filed: 11/28/16 08:48> Subjective - Date & Time of Evaluation Date of Evaluation: 11/28/16 Time of Evaluation: 07:16 - Subjective Subjective: GI Progress Note Pt seen and examined at bedside. Pt states she had an episode of nausea yesterday after eating her first solid meal yesterday. Pt complains of epigastric soreness. Pt has not had a bowel movement over the last several days. 12 point ROS performed, negative unless otherwise stated. Objective - Vital Signs/Intake and Output Vital Signs (last 24 hours): Temp Pulse Resp BP Pulse Ox 98.7 F 92 H 20 125/88 92 L 11/27/16 16:00 11/27/16 16:00 11/27/16 16:00 11/27/16 16:00 11/27/16 16:00 Intake and Output: 11/28/16 11/28/16 06:59 18:59 Intake Total 5320 Output Total 150 Balance 5170 - Medications Medications: Current Medications Acetaminophen (Tylenol 325mg Tab) 975 mg PO Q8H [facility] Last Admin: 11/27/16 14:10 Dose: Not Given Albuterol/Ipratropium (Duoneb 3 Mg/0.5 Mg (3 Ml) Ud) 3 ml IH [id number] [facility] Last Admin: 11/28/16 01:08 Dose: Not Given Amlodipine Besylate (Norvasc) 10 mg PO DAILY [facility] Last Admin: 11/27/16 10:15 Dose: 10 mg Clonidine HCl (Catapres) 0.1 mg PO Q6 PRN PRN Reason: Diastolic blood pressure Last Admin: 11/22/16 15:21 Dose: 0.1 mg Docusate Sodium (Colace) 100 mg PO BID [facility] Last Admin: 11/27/16 18:04 Dose: 100 mg Enoxaparin Sodium (Lovenox) 40 mg SC DAILY [facility] PRN Reason: Protocol Last Admin: 11/27/16 10:18 Dose: 40 mg Famotidine (Pepcid) 20 mg PO 1000,2200 [facility] Last Admin: 11/27/16 21:21 Dose: 20 mg Meropenem 1g/NS 100mL IVPB (Meropenem 1g/Ns 100ml Ivpb) 1 gm in 100 mls @ 100 mls/hr IVPB Q8 [facility] PRN Reason: Protocol Stop: 12/02/16 11:16 Last Admin: 11/28/16 05:55 Dose: 100 mls/hr Vancomycin HCl (Vancomycin 1gm) 1 gm in 250 mls @ 167 mls/hr IVPB Q12H [facility] PRN Reason: Protocol Stop: 12/02/16 11:16 Last Admin: 11/27/16 22:18 Dose: 167 mls/hr Lactated Ringer's (Lactated Ringer's) 1,000 mls @ 200 mls/hr IV .Q5H [facility] Last Admin: 11/28/16 05:55 Dose: 200 mls/hr Levothyroxine Sodium (Synthroid) 125 mcg PO DAILY [facility] Last Admin: 11/27/16 10:34 Dose: 125 mcg Metoclopramide HCl (Reglan) 10 mg IVP ACHS [facility] Last Admin: 11/27/16 21:21 Dose: 10 mg Morphine Sulfate (Morphine) 2 mg IVP Q3H PRN PRN Reason: Pain, severe (8-10) Last Admin: 11/26/16 17:36 Dose: 2 mg Nebivolol Hcl [ (Bystolic] 10 Mg) 10 mg PO DAILY [facility] Last Admin: 11/27/16 10:17 Dose: 10 mg Ondansetron HCl (Zofran Inj) 4 mg IVP Q4H PRN PRN Reason: Nausea/Vomiting Last Admin: 11/26/16 13:37 Dose: 4 mg Oxycodone HCl (Oxycontin Extended Release Tab) 40 mg PO Q12 [facility] Last Admin: 11/27/16 21:21 Dose: 40 mg Oxycodone HCl (Oxycodone Immediate Release Tab) 15 mg PO Q6H PRN PRN Reason: Pain, moderate (4-7) Last Admin: 11/26/16 20:26 Dose: 15 mg Polyethylene Glycol (Miralax) 17 gm PO DAILY [facility] Last Admin: 11/27/16 10:14 Dose: 17 gm - Labs Labs: 11/27/16 10:58 11/27/16 07:45 PT 13.3 Seconds (9.9-11.8) H 11/25/16 08:40 INR 1.23 (0.93-1.08) H 11/25/16 08:40 APTT 29.5 Seconds (23.7-30.8) 11/18/16 04:25 - Constitutional Appears: Non-toxic, No Acute Distress - Head Exam Head Exam: ATRAUMATIC, NORMAL INSPECTION, NORMOCEPHALIC - ENT Exam ENT Exam: Mucous Membranes Moist - Respiratory Exam Respiratory Exam: Clear to Ausculation Bilateral, NORMAL BREATHING PATTERN. absent: Rales, Rhonchi, Wheezes - Cardiovascular Exam Cardiovascular Exam: RRR, +S1, +S2 - GI/Abdominal Exam GI & Abdominal Exam: Soft, Tenderness (Mild epigastric), Normal Bowel Sounds Additional comments: BHARGAV drain in place Surgical staple line intact, no erythem, edema, or drainage - Extremities Exam Extremities Exam: absent: Calf Tenderness, Pedal Edema - Neurological Exam Neurological Exam: Alert, Awake, Oriented x3 - Psychiatric Exam Psychiatric exam: Normal Affect, Normal Mood - Skin Skin Exam: Intact, Normal Color, Warm Assessment and Plan - Assessment and Plan (Free Text) Plan: 56 y/o F with PMH of HTN, hypothyroidism, and scoliosis presents with bile leak secondary to cholecystectomy s/p ERCP with stent placement complicated by pancreatitis. Increasing white blood cell count lead to new CT scan. Abdomen/ Pelvis CT revealed gallbladder fossa fluid collection with increased size along with multiple smaller fluid collections present. IR has been consulted at this time and will await recommendations. Pt will need to have stent removed between 6-8 weeks. Surgery continues to follow. Plan: IR consulted Advance diet as tolerated Miralax to help with bowel regimen Aggressive LR @ 200 cc/hr Monitor blood cultures Trend LFTs Antiemetics for nausea Continue pain management Continue antibiotics as per primary care team Will continue to monitor Rossana, PGY-2 <Clint Gonzalez - Last Filed: 11/28/16 08:59> Objective - Vital Signs/Intake and Output Vital Signs (last 24 hours): Temp Pulse Resp BP Pulse Ox 99.1 F 91 H 20 148/100 H 98 11/28/16 07:30 11/28/16 07:30 11/28/16 07:30 11/28/16 07:30 11/28/16 07:30 Intake and Output: 11/28/16 11/28/16 06:59 18:59 Intake Total 5320 Output Total 150 Balance 5170 - Medications Medications: Current Medications Acetaminophen (Tylenol 325mg Tab) 975 mg PO Q8H [facility] Last Admin: 11/27/16 14:10 Dose: Not Given Albuterol/Ipratropium (Duoneb 3 Mg/0.5 Mg (3 Ml) Ud) 3 ml IH [id number] [facility] Last Admin: 11/28/16 08:32 Dose: 3 ml Amlodipine Besylate (Norvasc) 10 mg PO DAILY [facility] Last Admin: 11/27/16 10:15 Dose: 10 mg Clonidine HCl (Catapres) 0.1 mg PO Q6 PRN PRN Reason: Diastolic blood pressure Last Admin: 11/22/16 15:21 Dose: 0.1 mg Docusate Sodium (Colace) 100 mg PO BID [facility] Last Admin: 11/27/16 18:04 Dose: 100 mg Enoxaparin Sodium (Lovenox) 40 mg SC DAILY [facility] PRN Reason: Protocol Last Admin: 11/27/16 10:18 Dose: 40 mg Famotidine (Pepcid) 20 mg PO 1000,2200 [facility] Last Admin: 11/27/16 21:21 Dose: 20 mg Meropenem 1g/NS 100mL IVPB (Meropenem 1g/Ns 100ml Ivpb) 1 gm in 100 mls @ 100 mls/hr IVPB Q8 [facility] PRN Reason: Protocol Stop: 12/02/16 11:16 Last Admin: 11/28/16 05:55 Dose: 100 mls/hr Vancomycin HCl (Vancomycin 1gm) 1 gm in 250 mls @ 167 mls/hr IVPB Q12H [facility] PRN Reason: Protocol Stop: 12/02/16 11:16 Last Admin: 11/27/16 22:18 Dose: 167 mls/hr Lactated Ringer's (Lactated Ringer's) 1,000 mls @ 200 mls/hr IV .Q5H [facility] Last Admin: 11/28/16 05:55 Dose: 200 mls/hr Levothyroxine Sodium (Synthroid) 125 mcg PO DAILY [facility] Last Admin: 11/27/16 10:34 Dose: 125 mcg Metoclopramide HCl (Reglan) 10 mg IVP ACHS [facility] Last Admin: 11/27/16 21:21 Dose: 10 mg Morphine Sulfate (Morphine) 2 mg IVP Q3H PRN PRN Reason: Pain, severe (8-10) Last Admin: 11/26/16 17:36 Dose: 2 mg Nebivolol Hcl [ (Bystolic] 10 Mg) 10 mg PO DAILY [facility] Last Admin: 11/27/16 10:17 Dose: 10 mg Ondansetron HCl (Zofran Inj) 4 mg IVP Q4H PRN PRN Reason: Nausea/Vomiting Last Admin: 11/26/16 13:37 Dose: 4 mg Oxycodone HCl (Oxycontin Extended Release Tab) 40 mg PO Q12 [facility] Last Admin: 11/27/16 21:21 Dose: 40 mg Oxycodone HCl (Oxycodone Immediate Release Tab) 15 mg PO Q6H PRN PRN Reason: Pain, moderate (4-7) Last Admin: 11/26/16 20:26 Dose: 15 mg Polyethylene Glycol (Miralax) 17 gm PO DAILY [facility] Last Admin: 11/27/16 10:14 Dose: 17 gm - Labs Labs: 11/27/16 10:58 11/27/16 07:45 PT 13.3 Seconds (9.9-11.8) H 11/25/16 08:40 INR 1.23 (0.93-1.08) H 11/25/16 08:40 APTT 29.5 Seconds (23.7-30.8) 11/18/16 04:25 Attending/Attestation - Attestation I have personally seen and examined this patient.: Yes I have fully participated in the care of the patient.: Yes I have reviewed all pertinent clinical information, including history, physical exam and plan: Yes Notes (Text): 11/28/16 08:56 56 year old female with h/o HTN admitted with acute cholecystitis s/p open cholecystectomy c/b bile leak now s/p ERCP with placement of a 10 Fr x 9 cm plastic biliary stent. 1. Bile leak 2. Acute cholecystitis 3. Intra-abdominal abscess Plan: -s/p ERCP with stent for bile leak -on antibiotics -awaiting IR evaluation for percutaneous abscess drainage -continue hydration and supportive measures
[2016-11-28 09:16] LABS: HEMATOCRIT 38.1 % (36.0-48.0); MEAN CELL VOLUME 85.2 fl (80.0-105.0); MEAN CORPUSCULAR HEMOGLOBIN 27.7 pg (25.0-35.0); MEAN CORPUSCULAR HGB CONC 32.5 g/dl (31.0-37.0); MEAN PLATELET VOLUME 9.1 fl (7.0-11.0); RED CELL DISTRIBUTION WIDTH 15.4 % (11.5-14.5)
[2016-11-28 09:25] LABS: ALB/GLOB RATIO 0.9 (1.1-1.8); ALKALINE PHOSPHATASE 259 U/L (38-126); ALT/SGPT 54 U/L (7-56); AST/SGOT 31 U/L (14-36); BILIRUBIN,TOTAL 0.7 mg/dL (0.2-1.3); BLOOD UREA NITROGEN 8 mg/dL (7-21); CALCIUM 8.2 mg/dL (8.4-10.5); CARBON DIOXIDE 32 mmol/L (21-33); CHLORIDE 96 mmol/L (98-107); GFR AFRICAN-AMERICAN > 60; GLUCOSE,RANDOM 103 mg/dL (70-110); POTASSIUM 3.7 mmol/L (3.6-5.0); SODIUM 135 mmol/L (132-148); TOTAL PROTEIN 5.7 g/dL (5.8-8.3)
[2016-11-28 09:38] LABS: WHITE BLOOD COUNT 31.7 10^3/ul (4.5-11.0)
[2016-11-28 09:43] LABS: BASO % 0.1 % (0.0-3.0); EOS % 0.4 % (1.5-5.0); GRAN % 89.9 % (50.0-68.0); LYMPH % 5.5 % (22.0-35.0); MONO % 4.1 % (1.0-6.0)
[2016-11-28 09:44] LABS: BASO # 0.03 K/mm3 (0.0-2.0); EOS # 0.1 (0.0-0.7); GRAN # 29.76 (1.4-6.5); LYMPH # 1.8 (1.2-3.4); MONO # 1.4 (0.1-0.6)
[2016-11-28] MEDS: oxyCODONE 20 mg ER Tab (oxyCONTIN) PO SCH ×2 (10:12→21:20)
[2016-11-28] MEDS: Levothyroxine 125 MCG TAB PO SCH (10:14)
[2016-11-28] MEDS: NEBIVOLOL HCL 10 MG PO SCH (10:17)
[2016-11-28] MEDS: POLYETHYLENE GLYCOL 3350 17 GM/Dose PACKET PO SCH (10:18)
[2016-11-28] MEDS: Enoxaparin 40 mg Syringe SC SCH (10:21)
[2016-11-28] MEDS: Vancomycin 1gm in NS 250ml 1 GM/250 ML BAG IVPB SCH ×2 (11:00→23:10)
--- NOTE | 2016-11-28 11:03 | PN ---
DATE: SUBJECTIVE: A 56-year-old white female status post open cholecystectomy, biliary leak ERCP, stent post ERCP, pancreatitis resolved, fluid collection in gallbladder fossa, elevated white count 34,000, left shift. The patient is afebrile. She is less nauseous. She has less pain tolerating some diet, but the patient will need evacuation of her fluid collection. We will discuss with Dr. Valdez about possible CT-guided drainage of her abscess versus fluid collection and plan is to proceed as follows. PHYSICAL EXAMINATION: GENERAL: Shows a well-developed, well-nourished, white female. She is awake, alert, and oriented x3. LUNGS: She reports mild shortness of breath. Actually does show some atelectasis and possible early pneumonic changes at the right base possibly secondary to elevated white count from her fluid collection. The patient has been anticoagulated and does have antiembolism compression device in place. She has been ambulating. She has been using her incentive spirometry. CHEST: Clear to auscultation and percussion. ABDOMEN: Her abdomen is distended. Bowel sounds are hypoactive. Minimal tenderness. Minimal distention. EXTREMITIES: No cyanosis, clubbing, or edema. Dom Dover MD
--- NOTE | 2016-11-28 12:44 | CP.PCM.PN ---
Subjective - Date & Time of Evaluation Date of Evaluation: 11/28/16 Time of Evaluation: 12:44 - Subjective Subjective: General Surgery progress note for Dr. Sandhu PT S&E at bedside. Patient aware of IR consult and possible drain input for drainage. Drain output 150cc serobilious fluid (bile tinged). Patient admits to nausea. Patient denies vomiting. Patient states she hasn't had a bowel movement. Objective - Vital Signs/Intake and Output Vital Signs (last 24 hours): Temp Pulse Resp BP Pulse Ox 99.1 F 91 H 20 148/98 H 98 11/28/16 07:30 11/28/16 07:30 11/28/16 07:30 11/28/16 10:16 11/28/16 07:30 Intake and Output: 11/28/16 11/28/16 06:59 18:59 Intake Total 5320 480 Output Total 150 90 Balance 5170 390 - Medications Medications: Current Medications Acetaminophen (Tylenol 325mg Tab) 975 mg PO Q8H [facility] Last Admin: 11/28/16 10:20 Dose: Not Given Albuterol/Ipratropium (Duoneb 3 Mg/0.5 Mg (3 Ml) Ud) 3 ml IH [id number] [facility] Last Admin: 11/28/16 08:32 Dose: 3 ml Amlodipine Besylate (Norvasc) 10 mg PO DAILY [facility] Last Admin: 11/28/16 10:16 Dose: 10 mg Clonidine HCl (Catapres) 0.1 mg PO Q6 PRN PRN Reason: Diastolic blood pressure Last Admin: 11/22/16 15:21 Dose: 0.1 mg Docusate Sodium (Colace) 100 mg PO BID [facility] Last Admin: 11/28/16 10:08 Dose: 100 mg Enoxaparin Sodium (Lovenox) 40 mg SC DAILY [facility] PRN Reason: Protocol Last Admin: 11/28/16 10:21 Dose: 40 mg Famotidine (Pepcid) 20 mg PO 1000,2200 [facility] Last Admin: 11/28/16 10:12 Dose: 20 mg Meropenem 1g/NS 100mL IVPB (Meropenem 1g/Ns 100ml Ivpb) 1 gm in 100 mls @ 100 mls/hr IVPB Q8 [facility] PRN Reason: Protocol Stop: 12/02/16 11:16 Last Admin: 11/28/16 05:55 Dose: 100 mls/hr Vancomycin HCl (Vancomycin 1gm) 1 gm in 250 mls @ 167 mls/hr IVPB Q12H [facility] PRN Reason: Protocol Stop: 12/02/16 11:16 Last Admin: 11/28/16 11:00 Dose: 167 mls/hr Lactated Ringer's (Lactated Ringer's) 1,000 mls @ 200 mls/hr IV .Q5H [facility] Last Admin: 11/28/16 05:55 Dose: 200 mls/hr Levothyroxine Sodium (Synthroid) 125 mcg PO DAILY [facility] Last Admin: 11/28/16 10:14 Dose: 125 mcg Metoclopramide HCl (Reglan) 10 mg IVP ACHS [facility] Last Admin: 11/28/16 10:12 Dose: 10 mg Morphine Sulfate (Morphine) 2 mg IVP Q3H PRN PRN Reason: Pain, severe (8-10) Last Admin: 11/26/16 17:36 Dose: 2 mg Nebivolol Hcl [ (Bystolic] 10 Mg) 10 mg PO DAILY [facility] Last Admin: 11/28/16 10:17 Dose: 10 mg Ondansetron HCl (Zofran Inj) 4 mg IVP Q4H PRN PRN Reason: Nausea/Vomiting Last Admin: 11/26/16 13:37 Dose: 4 mg Oxycodone HCl (Oxycontin Extended Release Tab) 40 mg PO Q12 [facility] Last Admin: 11/28/16 10:12 Dose: 40 mg Oxycodone HCl (Oxycodone Immediate Release Tab) 15 mg PO Q6H PRN PRN Reason: Pain, moderate (4-7) Last Admin: 11/26/16 20:26 Dose: 15 mg Polyethylene Glycol (Miralax) 17 gm PO DAILY [facility] Last Admin: 11/28/16 10:18 Dose: 17 gm - Labs Labs: 11/28/16 09:00 11/28/16 09:00 PT 13.3 Seconds (9.9-11.8) H 11/25/16 08:40 INR 1.23 (0.93-1.08) H 11/25/16 08:40 APTT 29.5 Seconds (23.7-30.8) 11/18/16 04:25 - Constitutional Appears: Non-toxic - Head Exam Head Exam: NORMAL INSPECTION - Eye Exam Eye Exam: EOMI, Normal appearance - ENT Exam ENT Exam: Mucous Membranes Moist - Neck Exam Neck Exam: Full ROM, Normal Inspection - Respiratory Exam Respiratory Exam: Clear to Ausculation Bilateral, NORMAL BREATHING PATTERN. absent: Accessory Muscle Use, Respiratory Distress - Cardiovascular Exam Cardiovascular Exam: REGULAR RHYTHM. absent: Bradycardia, Tachycardia - GI/Abdominal Exam GI & Abdominal Exam: Soft, Tenderness. absent: Distended, Rigid, Hernia, Rebound Additional comments: LUQ, RUQ tenderness. No rebound tenderness. - Psychiatric Exam Psychiatric exam: Normal Affect, Normal Mood - Skin Skin Exam: Dry, Normal Color, Warm Additional comments: incision site c/d/i joel in place, no erythema, drainage, purulence Assessment and Plan - Assessment and Plan (Free Text) Assessment: 56F cholecystitis, pancreatitis laparoscopic converted to open cholecystectomy POD#10 Plan: Plan: Plan: LFTs downtrending Diet: HHD, monitor for diet tolerance continue monitor LFTs, drain output I/Os IVF increased d/t emesis 2L LR fluid bolus LR 200cc/hr per GI stent placed 11/25, to be removed in 6 weeks per GI [facility] pain meds as needed incentive spirometer at bedside, patient is using f/u IR recommendations D/W Dr. Edson Cornejo, DO PGY1
--- NOTE | 2016-11-28 13:32 | CP.PCM.PN ---
Subjective - Date & Time of Evaluation Date of Evaluation: 11/28/16 Time of Evaluation: 11:55 - Subjective Subjective: Patient continues to have nausea and abdominal discomfort. No fevers overnight. Objective - Vital Signs/Intake and Output Vital Signs (last 24 hours): Temp Pulse Resp BP Pulse Ox 99.1 F 91 H 20 148/98 H 98 11/28/16 07:30 11/28/16 07:30 11/28/16 07:30 11/28/16 10:16 11/28/16 07:30 Intake and Output: 11/28/16 11/28/16 06:59 18:59 Intake Total 5320 180 Output Total 150 Balance 5170 180 - Medications Medications: Current Medications Acetaminophen (Tylenol 325mg Tab) 975 mg PO Q8H [facility] Last Admin: 11/28/16 10:20 Dose: Not Given Albuterol/Ipratropium (Duoneb 3 Mg/0.5 Mg (3 Ml) Ud) 3 ml IH [id number] [facility] Last Admin: 11/28/16 08:32 Dose: 3 ml Amlodipine Besylate (Norvasc) 10 mg PO DAILY [facility] Last Admin: 11/28/16 10:16 Dose: 10 mg Clonidine HCl (Catapres) 0.1 mg PO Q6 PRN PRN Reason: Diastolic blood pressure Last Admin: 11/22/16 15:21 Dose: 0.1 mg Docusate Sodium (Colace) 100 mg PO BID [facility] Last Admin: 11/28/16 10:08 Dose: 100 mg Enoxaparin Sodium (Lovenox) 40 mg SC DAILY [facility] PRN Reason: Protocol Last Admin: 11/28/16 10:21 Dose: 40 mg Famotidine (Pepcid) 20 mg PO 1000,2200 [facility] Last Admin: 11/28/16 10:12 Dose: 20 mg Meropenem 1g/NS 100mL IVPB (Meropenem 1g/Ns 100ml Ivpb) 1 gm in 100 mls @ 100 mls/hr IVPB Q8 [facility] PRN Reason: Protocol Stop: 12/02/16 11:16 Last Admin: 11/28/16 05:55 Dose: 100 mls/hr Vancomycin HCl (Vancomycin 1gm) 1 gm in 250 mls @ 167 mls/hr IVPB Q12H [facility] PRN Reason: Protocol Stop: 12/02/16 11:16 Last Admin: 11/28/16 11:00 Dose: 167 mls/hr Lactated Ringer's (Lactated Ringer's) 1,000 mls @ 200 mls/hr IV .Q5H [facility] Last Admin: 11/28/16 05:55 Dose: 200 mls/hr Levothyroxine Sodium (Synthroid) 125 mcg PO DAILY [facility] Last Admin: 11/28/16 10:14 Dose: 125 mcg Metoclopramide HCl (Reglan) 10 mg IVP ACHS [facility] Last Admin: 11/28/16 10:12 Dose: 10 mg Morphine Sulfate (Morphine) 2 mg IVP Q3H PRN PRN Reason: Pain, severe (8-10) Last Admin: 11/26/16 17:36 Dose: 2 mg Nebivolol Hcl [ (Bystolic] 10 Mg) 10 mg PO DAILY [facility] Last Admin: 11/28/16 10:17 Dose: 10 mg Ondansetron HCl (Zofran Inj) 4 mg IVP Q4H PRN PRN Reason: Nausea/Vomiting Last Admin: 11/26/16 13:37 Dose: 4 mg Oxycodone HCl (Oxycontin Extended Release Tab) 40 mg PO Q12 [facility] Last Admin: 11/28/16 10:12 Dose: 40 mg Oxycodone HCl (Oxycodone Immediate Release Tab) 15 mg PO Q6H PRN PRN Reason: Pain, moderate (4-7) Last Admin: 11/26/16 20:26 Dose: 15 mg Polyethylene Glycol (Miralax) 17 gm PO DAILY [facility] Last Admin: 11/28/16 10:18 Dose: 17 gm - Labs Labs: 11/28/16 09:00 11/28/16 09:00 PT 13.3 Seconds (9.9-11.8) H 11/25/16 08:40 INR 1.23 (0.93-1.08) H 11/25/16 08:40 APTT 29.5 Seconds (23.7-30.8) 11/18/16 04:25 - Constitutional Appears: Non-toxic, No Acute Distress - Head Exam Head Exam: NORMAL INSPECTION - ENT Exam ENT Exam: Mucous Membranes Moist - Neck Exam Neck Exam: absent: Meningismus - Respiratory Exam Respiratory Exam: Decreased Breath Sounds - Cardiovascular Exam Cardiovascular Exam: +S1, +S2 - GI/Abdominal Exam GI & Abdominal Exam: Soft. absent: Tenderness Assessment and Plan - Assessment and Plan (Free Text) Plan: Assessment acute cholecystitis S/P open cholecystectomy, now with biliary leak S/P ERCP and biliary stent placement POD #3; patient continues to have marked leukocytosis and repeat CT A/P is showing increasing fluid collection in the gallbladder fossa Coagulase negative staph in blood cx, probably contamination chronic back pain and scoliosis and spinal stenosis S/P rods and hardware placement many years ago HTN hypothyroidism S/P hysterectomy Plan continue Vancomycin and Merrem day 6; continue to trend WBC count (it continues to increase) awaiting IR-guided drainage of the fluid collection will continue to monitor clinically
[2016-11-28] MEDS ORDERED: Midazolam 2 MG/2 ML VIAL ONE (15:05)
[2016-11-28] MEDS ORDERED: Lidocaine 1% Inj (20ml) ONE (15:35)
--- NOTE | 2016-11-28 18:14 | CT ---
PROCEDURE: CT-guided right upper quadrant abscess drain HISTORY: Recent cholecystectomy. Bile leak with biloma formation. Endoscopic stent placed. Needs percutaneous drainage. PHYSICIAN(S): Dillon Valdez MD. TECHNIQUE: The relative risks and indications for the procedure were explained to the patient and informed consent obtained. The patient was placed in a supine position on the CT scanner and preliminary images through the upper abdomen performed. This revealed a lobulated 7.5 cm fluid collection in the gallbladder fossa with fluid extending up around the liver.. A right anterior oblique approach was selected and the area prepped/draped in the usual sterile fashion. Conscious sedation and monitoring were provided throughout the procedure by nurse. An 18-gauge needle was advanced into the collection and 10 cc of turbid bilious fluid aspirated. A specimen was sent to microbiology. A 0.035 J-wire was coiled within the fluid collection. Sequential dilatation was performed with subsequent placement of a 12 [place] pigtail drain. Approximately 200 cc of bilious fluid was aspirated. The cavity was lavaged with normal saline. The drain was sutured to the skin and placed to gravity drainage. Completion images were performed. The patient tolerated the procedure well. IMPRESSION: 1. CT-guided right upper quadrant abscess drainage as described above.
[2016-11-29] MEDS: Albuterol-Ipratrop 3 mg / 0.5 (3 ml) UD IH SCH ×4 (01:06→19:25)
[2016-11-29] MEDS: Meropenem 1g/NS 100mL IVPB 1 GM/100 ML PIGGYBACK IVPB SCH ×3 (05:43→21:10)
[2016-11-29] MEDS: oxyCODONE 15 mg Immediate Release Tab PO PRN (06:56)
[2016-11-29 07:10] LABS: HEMATOCRIT 35.4 % (36.0-48.0); MEAN CELL VOLUME 84.3 fl (80.0-105.0); MEAN CORPUSCULAR HEMOGLOBIN 27.1 pg (25.0-35.0); MEAN CORPUSCULAR HGB CONC 32.2 g/dl (31.0-37.0); MEAN PLATELET VOLUME 9.2 fl (7.0-11.0); RED CELL DISTRIBUTION WIDTH 15.5 % (11.5-14.5); WHITE BLOOD COUNT 19.2 10^3/ul (4.5-11.0)
[2016-11-29] MEDS: NEBIVOLOL HCL 10 MG PO SCH (09:43)
[2016-11-29] MEDS: POLYETHYLENE GLYCOL 3350 17 GM/Dose PACKET PO SCH (09:43)
[2016-11-29] MEDS: Enoxaparin 40 mg Syringe SC SCH (09:43)
[2016-11-29] MEDS: oxyCODONE 20 mg ER Tab (oxyCONTIN) PO SCH ×2 (09:44→21:10)
[2016-11-29] MEDS: Levothyroxine 125 MCG TAB PO SCH (09:45)
--- NOTE | 2016-11-29 09:49 | CP.PCM.PN ---
<Dayan Washington - Last Filed: 11/29/16 09:45> Subjective - Date & Time of Evaluation Date of Evaluation: 11/29/16 Time of Evaluation: 09:46 - Subjective Subjective: Gastroenterology Fellow/PGY5 Progress Note Patient feels well this morning. Denies abdominal pain. Tolerating low fat diet. No bowel movement in last two days. A 12-point review of systems negative except for as above. Objective - Vital Signs/Intake and Output Vital Signs (last 24 hours): Temp Pulse Resp BP Pulse Ox 100.4 F H 98 H 20 150/70 90 L 11/29/16 07:53 11/29/16 07:30 11/29/16 07:30 11/29/16 09:44 11/29/16 07:30 Intake and Output: 11/29/16 11/29/16 06:59 18:59 Intake Total 720 Balance 720 - Medications Medications: Current Medications Acetaminophen (Tylenol 325mg Tab) 975 mg PO Q8H [facility] Last Admin: 11/29/16 07:53 Dose: 975 mg Albuterol/Ipratropium (Duoneb 3 Mg/0.5 Mg (3 Ml) Ud) 3 ml IH [id number] [facility] Last Admin: 11/29/16 08:17 Dose: 3 ml Amlodipine Besylate (Norvasc) 10 mg PO DAILY [facility] Last Admin: 11/29/16 09:44 Dose: 10 mg Clonidine HCl (Catapres) 0.1 mg PO Q6 PRN PRN Reason: Diastolic blood pressure Last Admin: 11/28/16 17:27 Dose: 0.1 mg Docusate Sodium (Colace) 100 mg PO BID [facility] Last Admin: 11/29/16 09:43 Dose: 100 mg Enoxaparin Sodium (Lovenox) 40 mg SC DAILY [facility] PRN Reason: Protocol Last Admin: 11/29/16 09:43 Dose: 40 mg Famotidine (Pepcid) 20 mg PO 1000,2200 [facility] Last Admin: 11/29/16 09:44 Dose: 20 mg Meropenem 1g/NS 100mL IVPB (Meropenem 1g/Ns 100ml Ivpb) 1 gm in 100 mls @ 100 mls/hr IVPB Q8 [facility] PRN Reason: Protocol Stop: 12/02/16 11:16 Last Admin: 11/29/16 05:43 Dose: 100 mls/hr Vancomycin HCl (Vancomycin 1gm) 1 gm in 250 mls @ 167 mls/hr IVPB Q12H [facility] PRN Reason: Protocol Stop: 12/02/16 11:16 Last Admin: 11/28/16 23:10 Dose: 167 mls/hr Sodium Chloride (Sodium Chloride 0.9%) 1,000 mls @ 100 mls/hr IV .Q10H [facility] Levothyroxine Sodium (Synthroid) 125 mcg PO DAILY [facility] Last Admin: 11/29/16 09:45 Dose: 125 mcg Metoclopramide HCl (Reglan) 10 mg IVP ACHS [facility] Last Admin: 11/29/16 07:25 Dose: Not Given Morphine Sulfate (Morphine) 2 mg IVP Q3H PRN PRN Reason: Pain, severe (8-10) Last Admin: 11/26/16 17:36 Dose: 2 mg Nebivolol Hcl [ (Bystolic] 10 Mg) 10 mg PO DAILY [facility] Last Admin: 11/29/16 09:43 Dose: 10 mg Ondansetron HCl (Zofran Inj) 4 mg IVP Q4H PRN PRN Reason: Nausea/Vomiting Last Admin: 11/26/16 13:37 Dose: 4 mg Oxycodone HCl (Oxycontin Extended Release Tab) 40 mg PO Q12 [facility] Last Admin: 11/29/16 09:44 Dose: 40 mg Oxycodone HCl (Oxycodone Immediate Release Tab) 15 mg PO Q6H PRN PRN Reason: Pain, moderate (4-7) Last Admin: 11/29/16 06:56 Dose: 15 mg Polyethylene Glycol (Miralax) 17 gm PO DAILY [facility] Last Admin: 11/29/16 09:43 Dose: 17 gm - Labs Labs: 11/29/16 07:03 11/28/16 09:00 PT 13.3 Seconds (9.9-11.8) H 11/25/16 08:40 INR 1.23 (0.93-1.08) H 11/25/16 08:40 APTT 29.5 Seconds (23.7-30.8) 11/18/16 04:25 - Constitutional Appears: Non-toxic, No Acute Distress - Head Exam Head Exam: ATRAUMATIC, NORMOCEPHALIC - Eye Exam Eye Exam: EOMI, PERRL Pupil Exam: PERRL. absent: Miosis, Mydriatic - ENT Exam ENT Exam: Mucous Membranes Moist, Normal Oropharynx - Neck Exam Neck Exam: Full ROM, Normal Inspection - Respiratory Exam Respiratory Exam: Clear to Ausculation Bilateral. absent: Rales, Rhonchi, Wheezes - Cardiovascular Exam Cardiovascular Exam: RRR, +S1, +S2. absent: Gallop, Rubs - GI/Abdominal Exam GI & Abdominal Exam: Soft, Normal Bowel Sounds. absent: Distended, Firm, Guarding, Rigid, Tenderness, Organomegaly, Rebound Additional comments: RLQ faroese pigtail with 200cc dark green bilious fluid - Extremities Exam Extremities Exam: Normal Inspection, Pedal Edema - Neurological Exam Neurological Exam: Alert, Awake - Psychiatric Exam Psychiatric exam: Normal Affect, Normal Mood - Skin Skin Exam: Dry, Intact, Normal Color, Warm Assessment and Plan - Assessment and Plan (Free Text) Assessment: 56 year old female with hypertension, hypothyroidism, and scoliosis presenting with abdominal pain. Active treatment of biliary leak POD 11 (11/18) cholecystectomy, POD4 (11/25) biliary stent placement, POD1 IR pigtail drain placement secondary to multiple fluid collections on repeat CT A/P and marked leukocytosis with resolved post-ERCP pancreatitis. Plan: >leukocytosis improving >pigtain draining appropriately >on meropenem and vancomycin >tolerating low fat diet >continue Miralax daily >supportive care: gentle IVFs, pain control, antiemetics >follow up outpatient with Dr. Gonzalez for stent removal in 6-8 weeks <Sher Blunt - Last Filed: 11/29/16 10:09> Objective - Vital Signs/Intake and Output Vital Signs (last 24 hours): Temp Pulse Resp BP Pulse Ox 100.4 F H 98 H 20 150/70 90 L 11/29/16 07:53 11/29/16 07:30 11/29/16 07:30 11/29/16 09:44 11/29/16 07:30 Intake and Output: 11/29/16 11/29/16 06:59 18:59 Intake Total 720 Balance 720 - Medications Medications: Current Medications Acetaminophen (Tylenol 325mg Tab) 975 mg PO Q8H [facility] Last Admin: 11/29/16 07:53 Dose: 975 mg Albuterol/Ipratropium (Duoneb 3 Mg/0.5 Mg (3 Ml) Ud) 3 ml IH [id number] [facility] Last Admin: 11/29/16 08:17 Dose: 3 ml Amlodipine Besylate (Norvasc) 10 mg PO DAILY [facility] Last Admin: 11/29/16 09:44 Dose: 10 mg Clonidine HCl (Catapres) 0.1 mg PO Q6 PRN PRN Reason: Diastolic blood pressure Last Admin: 11/28/16 17:27 Dose: 0.1 mg Docusate Sodium (Colace) 100 mg PO BID [facility] Last Admin: 11/29/16 09:43 Dose: 100 mg Enoxaparin Sodium (Lovenox) 40 mg SC DAILY [facility] PRN Reason: Protocol Last Admin: 11/29/16 09:43 Dose: 40 mg Famotidine (Pepcid) 20 mg PO 1000,2200 [facility] Last Admin: 11/29/16 09:44 Dose: 20 mg Meropenem 1g/NS 100mL IVPB (Meropenem 1g/Ns 100ml Ivpb) 1 gm in 100 mls @ 100 mls/hr IVPB Q8 [facility] PRN Reason: Protocol Stop: 12/02/16 11:16 Last Admin: 11/29/16 05:43 Dose: 100 mls/hr Vancomycin HCl (Vancomycin 1gm) 1 gm in 250 mls @ 167 mls/hr IVPB Q12H [facility] PRN Reason: Protocol Stop: 12/02/16 11:16 Last Admin: 11/28/16 23:10 Dose: 167 mls/hr Sodium Chloride (Sodium Chloride 0.9%) 1,000 mls @ 100 mls/hr IV .Q10H [facility] Levothyroxine Sodium (Synthroid) 125 mcg PO DAILY [facility] Last Admin: 11/29/16 09:45 Dose: 125 mcg Metoclopramide HCl (Reglan) 10 mg IVP ACHS [facility] Last Admin: 11/29/16 07:25 Dose: Not Given Morphine Sulfate (Morphine) 2 mg IVP Q3H PRN PRN Reason: Pain, severe (8-10) Last Admin: 11/26/16 17:36 Dose: 2 mg Nebivolol Hcl [ (Bystolic] 10 Mg) 10 mg PO DAILY [facility] Last Admin: 11/29/16 09:43 Dose: 10 mg Ondansetron HCl (Zofran Inj) 4 mg IVP Q4H PRN PRN Reason: Nausea/Vomiting Last Admin: 11/26/16 13:37 Dose: 4 mg Oxycodone HCl (Oxycontin Extended Release Tab) 40 mg PO Q12 [facility] Last Admin: 11/29/16 09:44 Dose: 40 mg Oxycodone HCl (Oxycodone Immediate Release Tab) 15 mg PO Q6H PRN PRN Reason: Pain, moderate (4-7) Last Admin: 11/29/16 06:56 Dose: 15 mg Polyethylene Glycol (Miralax) 17 gm PO DAILY [facility] Last Admin: 11/29/16 09:43 Dose: 17 gm - Labs Labs: 11/29/16 07:03 11/28/16 09:00 PT 13.3 Seconds (9.9-11.8) H 11/25/16 08:40 INR 1.23 (0.93-1.08) H 11/25/16 08:40 APTT 29.5 Seconds (23.7-30.8) 11/18/16 04:25 Attending/Attestation - Attestation I have personally seen and examined this patient.: Yes I have fully participated in the care of the patient.: Yes I have reviewed all pertinent clinical information, including history, physical exam and plan: Yes Notes (Text): 11/29/16 09:58 I have seen and examined patient with GI fellow. No acute events overnight, she overall feels well. She denies nausea, vomiting, diarrhea, fever/chills. Tolerating PO diet without difficulty. She has not had any bowel movement over the past two days. Review of vitals from today shows low grade temperature of 100.4. HTN Hypothyroidism Cholecystitis s/p cholecystectomy complicated by development of bile leak and intraabdominal abscess s/p ERCP with biliary stent placement and IR drainage of abscess - Diet as tolerated - Continue with antibiotic therapy as per ID - Continue to monitor drainage output, further plan as per surgical team - Maintain bowel regimen to prevent constipation - Patient will require outpatient ERCP for biliary stent removal in 6-8 weeks, to be arranged with Dr. Gonzalez - Will sign off case, please reconsult as necessary, thank you.
--- NOTE | 2016-11-29 09:58 | RAD ---
PROCEDURE: ERCP HISTORY: ? CBD OBST COMPARISON: None TECHNIQUE: Standard protocol for this study/examination FINDINGS: Total fluoroscopic time (continuous mode) utilized during the procedure: 30.9 seconds IMPRESSION: Submitted images from the current procedure: 4.0
[2016-11-29] MEDS: Vancomycin 1gm in NS 250ml 1 GM/250 ML BAG IVPB SCH ×2 (10:20→22:45)
--- NOTE | 2016-11-29 10:57 | CP.PCM.PN ---
Subjective - Date & Time of Evaluation Date of Evaluation: 11/29/16 Time of Evaluation: 07:15 - Subjective Subjective: Patient seen and examined this morning. Patient reports feeling much better. Denies abdominal pain. BHARGAV drain output: 90ccs/ bilious. IR drain in place c/d/i , 500cc/bilious as per nursing staff. T max: 100.8 Objective - Vital Signs/Intake and Output Vital Signs (last 24 hours): Temp Pulse Resp BP Pulse Ox 100.4 F H 98 H 20 150/70 90 L 11/29/16 07:53 11/29/16 07:30 11/29/16 07:30 11/29/16 09:44 11/29/16 07:30 Intake and Output: 11/29/16 11/29/16 06:59 18:59 Intake Total 720 Balance 720 - Medications Medications: Current Medications Acetaminophen (Tylenol 325mg Tab) 975 mg PO Q8H [facility] Last Admin: 11/29/16 07:53 Dose: 975 mg Albuterol/Ipratropium (Duoneb 3 Mg/0.5 Mg (3 Ml) Ud) 3 ml IH [id number] [facility] Last Admin: 11/29/16 08:17 Dose: 3 ml Amlodipine Besylate (Norvasc) 10 mg PO DAILY [facility] Last Admin: 11/29/16 09:44 Dose: 10 mg Clonidine HCl (Catapres) 0.1 mg PO Q6 PRN PRN Reason: Diastolic blood pressure Last Admin: 11/28/16 17:27 Dose: 0.1 mg Docusate Sodium (Colace) 100 mg PO BID [facility] Last Admin: 11/29/16 09:43 Dose: 100 mg Enoxaparin Sodium (Lovenox) 40 mg SC DAILY [facility] PRN Reason: Protocol Last Admin: 11/29/16 09:43 Dose: 40 mg Famotidine (Pepcid) 20 mg PO 1000,2200 [facility] Last Admin: 11/29/16 09:44 Dose: 20 mg Meropenem 1g/NS 100mL IVPB (Meropenem 1g/Ns 100ml Ivpb) 1 gm in 100 mls @ 100 mls/hr IVPB Q8 [facility] PRN Reason: Protocol Stop: 12/02/16 11:16 Last Admin: 11/29/16 05:43 Dose: 100 mls/hr Vancomycin HCl (Vancomycin 1gm) 1 gm in 250 mls @ 167 mls/hr IVPB Q12H [facility] PRN Reason: Protocol Stop: 12/02/16 11:16 Last Admin: 11/29/16 10:20 Dose: 167 mls/hr Sodium Chloride (Sodium Chloride 0.9%) 1,000 mls @ 100 mls/hr IV .Q10H [facility] Levothyroxine Sodium (Synthroid) 125 mcg PO DAILY [facility] Last Admin: 11/29/16 09:45 Dose: 125 mcg Metoclopramide HCl (Reglan) 10 mg IVP ACHS [facility] Last Admin: 11/29/16 07:25 Dose: Not Given Morphine Sulfate (Morphine) 2 mg IVP Q3H PRN PRN Reason: Pain, severe (8-10) Last Admin: 11/26/16 17:36 Dose: 2 mg Nebivolol Hcl [ (Bystolic] 10 Mg) 10 mg PO DAILY [facility] Last Admin: 11/29/16 09:43 Dose: 10 mg Ondansetron HCl (Zofran Inj) 4 mg IVP Q4H PRN PRN Reason: Nausea/Vomiting Last Admin: 11/26/16 13:37 Dose: 4 mg Oxycodone HCl (Oxycontin Extended Release Tab) 40 mg PO Q12 [facility] Last Admin: 11/29/16 09:44 Dose: 40 mg Oxycodone HCl (Oxycodone Immediate Release Tab) 15 mg PO Q6H PRN PRN Reason: Pain, moderate (4-7) Last Admin: 11/29/16 06:56 Dose: 15 mg Polyethylene Glycol (Miralax) 17 gm PO DAILY [facility] Last Admin: 11/29/16 09:43 Dose: 17 gm - Labs Labs: 11/29/16 07:03 11/28/16 09:00 PT 13.3 Seconds (9.9-11.8) H 11/25/16 08:40 INR 1.23 (0.93-1.08) H 11/25/16 08:40 APTT 29.5 Seconds (23.7-30.8) 11/18/16 04:25 - Constitutional Appears: No Acute Distress - Head Exam Head Exam: NORMOCEPHALIC - Eye Exam Eye Exam: Normal appearance - ENT Exam ENT Exam: Mucous Membranes Moist - Respiratory Exam Respiratory Exam: NORMAL BREATHING PATTERN - Cardiovascular Exam Cardiovascular Exam: +S1, +S2 - GI/Abdominal Exam GI & Abdominal Exam: Soft. absent: Firm, Guarding, Rigid, Rebound - Neurological Exam Neurological Exam: Alert, Awake, Oriented x3 - Psychiatric Exam Psychiatric exam: Normal Mood - Skin Skin Exam: Dry, Intact, Warm Assessment and Plan - Assessment and Plan (Free Text) Assessment: 56F laparoscopic cholecystectomy converted to open cholecystectomy POD#11 -Regular diet -Monitor drain output -Depending on output, patient will likely remain with drains upon discharge, and drains will be removed in follow up visit at Dr. Sandhu's office -Abx per ID -GI recs appreciated -Anti-pyretic Q6H prn fever >100.4 -Further recs per Dr. Edson Hairston PGY-2
[2016-11-29] MEDS: Sodium Chloride 0.9% 1,000 ML IV SCH (13:08)
--- NOTE | 2016-11-29 13:18 | CP.PCM.PN ---
Subjective - Date & Time of Evaluation Date of Evaluation: 11/29/16 Time of Evaluation: 12:10 - Subjective Subjective: Comfortable, improved abdominal pain, still with nausea but also starting to improve, still having low grade fevers but no chills or rigors. No diarrhea. Objective - Vital Signs/Intake and Output Vital Signs (last 24 hours): Temp Pulse Resp BP Pulse Ox 100.4 F H 98 H 20 150/70 90 L 11/29/16 07:53 11/29/16 07:30 11/29/16 07:30 11/29/16 09:44 11/29/16 07:30 Intake and Output: 11/29/16 11/29/16 06:59 18:59 Intake Total 720 Balance 720 - Medications Medications: Current Medications Acetaminophen (Tylenol 325mg Tab) 975 mg PO Q8H [facility] Last Admin: 11/29/16 07:53 Dose: 975 mg Albuterol/Ipratropium (Duoneb 3 Mg/0.5 Mg (3 Ml) Ud) 3 ml IH [id number] [facility] Last Admin: 11/29/16 08:17 Dose: 3 ml Amlodipine Besylate (Norvasc) 10 mg PO DAILY [facility] Last Admin: 11/29/16 09:44 Dose: 10 mg Clonidine HCl (Catapres) 0.1 mg PO Q6 PRN PRN Reason: Diastolic blood pressure Last Admin: 11/28/16 17:27 Dose: 0.1 mg Docusate Sodium (Colace) 100 mg PO BID [facility] Last Admin: 11/29/16 09:43 Dose: 100 mg Enoxaparin Sodium (Lovenox) 40 mg SC DAILY [facility] PRN Reason: Protocol Last Admin: 11/29/16 09:43 Dose: 40 mg Famotidine (Pepcid) 20 mg PO 1000,2200 [facility] Last Admin: 11/29/16 09:44 Dose: 20 mg Meropenem 1g/NS 100mL IVPB (Meropenem 1g/Ns 100ml Ivpb) 1 gm in 100 mls @ 100 mls/hr IVPB Q8 [facility] PRN Reason: Protocol Stop: 12/02/16 11:16 Last Admin: 11/29/16 05:43 Dose: 100 mls/hr Vancomycin HCl (Vancomycin 1gm) 1 gm in 250 mls @ 167 mls/hr IVPB Q12H [facility] PRN Reason: Protocol Stop: 12/02/16 11:16 Last Admin: 11/28/16 23:10 Dose: 167 mls/hr Sodium Chloride (Sodium Chloride 0.9%) 1,000 mls @ 100 mls/hr IV .Q10H [facility] Levothyroxine Sodium (Synthroid) 125 mcg PO DAILY [facility] Last Admin: 11/29/16 09:45 Dose: 125 mcg Metoclopramide HCl (Reglan) 10 mg IVP ACHS [facility] Last Admin: 11/29/16 07:25 Dose: Not Given Morphine Sulfate (Morphine) 2 mg IVP Q3H PRN PRN Reason: Pain, severe (8-10) Last Admin: 11/26/16 17:36 Dose: 2 mg Nebivolol Hcl [ (Bystolic] 10 Mg) 10 mg PO DAILY [facility] Last Admin: 11/29/16 09:43 Dose: 10 mg Ondansetron HCl (Zofran Inj) 4 mg IVP Q4H PRN PRN Reason: Nausea/Vomiting Last Admin: 11/26/16 13:37 Dose: 4 mg Oxycodone HCl (Oxycontin Extended Release Tab) 40 mg PO Q12 [facility] Last Admin: 11/29/16 09:44 Dose: 40 mg Oxycodone HCl (Oxycodone Immediate Release Tab) 15 mg PO Q6H PRN PRN Reason: Pain, moderate (4-7) Last Admin: 11/29/16 06:56 Dose: 15 mg Polyethylene Glycol (Miralax) 17 gm PO DAILY [facility] Last Admin: 11/29/16 09:43 Dose: 17 gm - Labs Labs: 11/29/16 07:03 11/28/16 09:00 PT 13.3 Seconds (9.9-11.8) H 11/25/16 08:40 INR 1.23 (0.93-1.08) H 11/25/16 08:40 APTT 29.5 Seconds (23.7-30.8) 11/18/16 04:25 - Constitutional Appears: Non-toxic, No Acute Distress - Head Exam Head Exam: NORMAL INSPECTION - ENT Exam ENT Exam: Mucous Membranes Moist - Neck Exam Neck Exam: absent: Meningismus - Respiratory Exam Respiratory Exam: Decreased Breath Sounds - Cardiovascular Exam Cardiovascular Exam: +S1, +S2 - GI/Abdominal Exam GI & Abdominal Exam: Soft. absent: Tenderness Additional comments: abdominal drain in place with bilious fluid Assessment and Plan - Assessment and Plan (Free Text) Plan: Assessment acute cholecystitis S/P open cholecystectomy, now with biliary leak S/P ERCP and biliary stent placement POD #4; continues to have marked fluid collection in the gallbladder fossa S/P IR-guided drainage and abdominal drain placement POD #1 Coagulase negative staph in blood cx, probably contamination chronic back pain and scoliosis and spinal stenosis S/P rods and hardware placement many years ago HTN hypothyroidism S/P hysterectomy Plan continue Vancomycin and Merrem day 7; continue to trend WBC count (has started to decrease after the IR-guided procedure yesterday) awaiting IR-guided drainage fluid cultures will continue to monitor clinically
[2016-11-29] MEDS: Morphine 2 mg/ml ISec IVP PRN (18:08)
--- NOTE | 2016-11-29 20:56 | PN ---
DATE: SUBJECTIVE: The patient was seen in the floor status post percutaneous drainage of an abscess. The temperature was 108 this morning, it is down to 98. She looks and feels much better. It looks like 90 mL came out. No growth on the fluid that was removed. No organism seen. from compressive atelectasis seen on the CAT scan. White count is down to 19. Alk phos is elevated 259, but this is coming down. Lipase of 10,000, it was down 1700 today. In general, the patient is much improved. Lazaro Sandhu MD
[2016-11-30] MEDS: Albuterol-Ipratrop 3 mg / 0.5 (3 ml) UD IH SCH ×4 (01:47→19:22)
[2016-11-30] MEDS: Sodium Chloride 0.9% 1,000 ML IV SCH (03:40)
[2016-11-30] MEDS: Meropenem 1g/NS 100mL IVPB 1 GM/100 ML PIGGYBACK IVPB SCH ×3 (05:01→21:09)
--- NOTE | 2016-11-30 08:32 | CP.PCM.PN ---
Subjective - Date & Time of Evaluation Date of Evaluation: 11/30/16 Time of Evaluation: 06:35 - Subjective Subjective: Patient seen and examined. No acute events over night. Reports feeling better. Reports improvement in abdominal pain. BHARGAV drain output 210cc/24hr; bilious. IR drain output 235cc/24hr, bilious. Surgical incision site c/d/i. +BM, +flatus. Tmax: 102.3F Objective - Vital Signs/Intake and Output Vital Signs (last 24 hours): Temp Pulse Resp BP Pulse Ox 98.7 F 73 18 118/75 93 L 11/30/16 07:53 11/30/16 07:53 11/30/16 07:53 11/30/16 07:53 11/30/16 07:53 Intake and Output: 11/30/16 11/30/16 06:59 18:59 Intake Total 2400 Output Total 295 Balance 2105 - Medications Medications: Current Medications Acetaminophen (Tylenol 325mg Tab) 975 mg PO Q8H [facility] Last Admin: 11/30/16 00:05 Dose: 975 mg Albuterol/Ipratropium (Duoneb 3 Mg/0.5 Mg (3 Ml) Ud) 3 ml IH [id number] [facility] Last Admin: 11/30/16 06:59 Dose: 3 ml Amlodipine Besylate (Norvasc) 10 mg PO DAILY [facility] Last Admin: 11/29/16 09:44 Dose: 10 mg Clonidine HCl (Catapres) 0.1 mg PO Q6 PRN PRN Reason: Diastolic blood pressure Last Admin: 11/29/16 18:03 Dose: 0.1 mg Docusate Sodium (Colace) 100 mg PO BID [facility] Last Admin: 11/29/16 18:07 Dose: 100 mg Enoxaparin Sodium (Lovenox) 40 mg SC DAILY [facility] PRN Reason: Protocol Last Admin: 11/29/16 09:43 Dose: 40 mg Famotidine (Pepcid) 20 mg PO 1000,2200 [facility] Last Admin: 11/29/16 21:10 Dose: 20 mg Meropenem 1g/NS 100mL IVPB (Meropenem 1g/Ns 100ml Ivpb) 1 gm in 100 mls @ 100 mls/hr IVPB Q8 [facility] PRN Reason: Protocol Stop: 12/02/16 11:16 Last Admin: 11/30/16 05:01 Dose: 100 mls/hr Vancomycin HCl (Vancomycin 1gm) 1 gm in 250 mls @ 167 mls/hr IVPB Q12H [facility] PRN Reason: Protocol Stop: 12/02/16 11:16 Last Admin: 11/29/16 22:45 Dose: 167 mls/hr Sodium Chloride (Sodium Chloride 0.9%) 1,000 mls @ 100 mls/hr IV .Q10H [facility] Last Admin: 11/30/16 03:40 Dose: 100 mls/hr Levothyroxine Sodium (Synthroid) 125 mcg PO DAILY [facility] Last Admin: 11/29/16 09:45 Dose: 125 mcg Metoclopramide HCl (Reglan) 10 mg IVP ACHS [facility] Last Admin: 11/29/16 21:10 Dose: 10 mg Morphine Sulfate (Morphine) 2 mg IVP Q3H PRN PRN Reason: Pain, severe (8-10) Last Admin: 11/29/16 18:08 Dose: 2 mg Nebivolol Hcl [ (Bystolic] 10 Mg) 10 mg PO DAILY [facility] Last Admin: 11/29/16 09:43 Dose: 10 mg Ondansetron HCl (Zofran Inj) 4 mg IVP Q4H PRN PRN Reason: Nausea/Vomiting Last Admin: 11/26/16 13:37 Dose: 4 mg Oxycodone HCl (Oxycontin Extended Release Tab) 40 mg PO Q12 [facility] Last Admin: 11/29/16 21:10 Dose: 40 mg Oxycodone HCl (Oxycodone Immediate Release Tab) 15 mg PO Q6H PRN PRN Reason: Pain, moderate (4-7) Last Admin: 11/29/16 06:56 Dose: 15 mg Polyethylene Glycol (Miralax) 17 gm PO DAILY [facility] Last Admin: 11/29/16 09:43 Dose: 17 gm - Labs Labs: 11/29/16 07:03 11/28/16 09:00 PT 13.3 Seconds (9.9-11.8) H 11/25/16 08:40 INR 1.23 (0.93-1.08) H 11/25/16 08:40 APTT 29.5 Seconds (23.7-30.8) 11/18/16 04:25 - Constitutional Appears: No Acute Distress - Head Exam Head Exam: NORMOCEPHALIC - Eye Exam Eye Exam: Normal appearance - ENT Exam ENT Exam: Mucous Membranes Moist - Respiratory Exam Respiratory Exam: NORMAL BREATHING PATTERN - Cardiovascular Exam Cardiovascular Exam: +S1, +S2 - GI/Abdominal Exam GI & Abdominal Exam: Soft. absent: Distended, Firm, Guarding, Rebound - Neurological Exam Neurological Exam: Alert, Awake, Oriented x3 - Psychiatric Exam Psychiatric exam: Normal Mood - Skin Skin Exam: Dry, Intact, Warm Assessment and Plan - Assessment and Plan (Free Text) Assessment: 56F laparoscopic cholecystectomy converted to open cholecystectomy POD#12 -F/u AM labs -Regular diet - Continue to monitor drain output -Drains will be removed in follow up visit at Dr. Sandhu's office -Abx per ID -GI recs appreciated -Anti-pyretic Q6H prn fever >100.4 -Further recs per Dr. Edson Hairston PGY-2
[2016-11-30] MEDS: NEBIVOLOL HCL 10 MG PO SCH (10:05)
[2016-11-30] MEDS: POLYETHYLENE GLYCOL 3350 17 GM/Dose PACKET PO SCH (10:05)
[2016-11-30] MEDS: Enoxaparin 40 mg Syringe SC SCH (10:05)
[2016-11-30] MEDS: oxyCODONE 20 mg ER Tab (oxyCONTIN) PO SCH ×2 (10:06→21:09)
[2016-11-30] MEDS: Levothyroxine 125 MCG TAB PO SCH (10:07)
[2016-11-30] MEDS ORDERED: Sodium Chloride 0.9% 1,000 ML IV SCH (10:16)
[2016-11-30 10:30] LABS: HEMATOCRIT 33.5 % (36.0-48.0); MEAN CELL VOLUME 84.8 fl (80.0-105.0); MEAN CORPUSCULAR HEMOGLOBIN 27.3 pg (25.0-35.0); MEAN CORPUSCULAR HGB CONC 32.2 g/dl (31.0-37.0); MEAN PLATELET VOLUME 9.1 fl (7.0-11.0); RED CELL DISTRIBUTION WIDTH 15.6 % (11.5-14.5); WHITE BLOOD COUNT 7.5 10^3/ul (4.5-11.0)
[2016-11-30 10:36] LABS: BLOOD UREA NITROGEN 9 mg/dL (7-21); CALCIUM 7.6 mg/dL (8.4-10.5); CARBON DIOXIDE 30 mmol/L (21-33); CHLORIDE 100 mmol/L (98-107); GFR AFRICAN-AMERICAN > 60; GLUCOSE,RANDOM 180 mg/dL (70-110); SODIUM 137 mmol/L (132-148)
--- NOTE | 2016-11-30 10:50 | PN ---
DATE: 11/30/2016 SUBJECTIVE: The patient has no complaints of any headaches or dizziness. She had a fever yesterday. She said she is able tolerate her diet. PHYSICAL EXAMINATION: VITAL SIGNS: Temperature is 98.7, pulse of 73, blood pressure is 118/75, respiration is 18. GENERAL: The patient is lying in bed, flat, comfortable. HEENT: No oral lesion. Anicteric sclerae. Moist mucosa. NECK: No JVD, adenopathy, or thyromegaly. CARDIOVASCULAR: S1 and S2, regular. No murmurs, rubs, or gallops. LUNGS: Clear to auscultation bilaterally. No wheeze, rales, or rhonchi. ABDOMEN: Bowel sounds are positive, soft, nontender and nondistended. EXTREMITIES: No cyanosis, clubbing or edema. LABORATORY DATA: Creatinine is 0.5, white count of 19.5. ASSESSMENT: 1. Status post cholecystectomy. 2. Sepsis. 3. Fever. 4. Hypothyroidism. 5. Hypertension. 6. Status post biliary stent placement and drainage of abscess. PLAN: The patient is currently on Colace for constipation. She is on MiraLax for constipation as well. She is on nebulizer treatment. She is on Lovenox for DVT prophylaxis. She is on amlodipine for hypertension. She will continue Percocet for pain. The patient is on IV fluids. I will lower her rate of IV fluid to 50. The patient is currently on Zofran. She is on a diet. She did have a fever yesterday. She is being followed by Infectious Disease. We will do a chest x-ray. Juan Rosales MD
[2016-11-30 11:15] LABS: POTASSIUM 2.8 mmol/L (3.6-5.0)
--- NOTE | 2016-11-30 11:41 | RAD ---
HISTORY: COMPARISON: 11/27/2016. TECHNIQUE: Chest PA and lateral FINDINGS: LINES AND TUBES: None. LUNG AND PLEURA: There is consolidation in the right lower lobe. There is subsegmental atelectasis in the left lower lobe. HEART AND MEDIASTINUM: The heart is not enlarged. The hilar and mediastinal contours are within normal limits. SKELETAL STRUCTURES: Status post Gottlieb rods in the thoracic and lumbar spine. VISUALIZED UPPER ABDOMEN: Normal. OTHER FINDINGS: None. IMPRESSION: Right lower lobe pneumonia. Follow-up after medical management is recommended to ensure complete resolution.
[2016-11-30] MEDS: Vancomycin 1gm in NS 250ml 1 GM/250 ML BAG IVPB SCH ×2 (12:12→22:34)
[2016-11-30] MEDS ORDERED: Potassium Chloride 40 mEq/30 ml LIQ UD PO STA (12:53)
--- NOTE | 2016-11-30 14:02 | PN ---
DATE: 11/30/2016 SUBJECTIVE: The patient is in bed. No acute distress, nontoxic. PHYSICAL EXAMINATION VITAL SIGNS: The patient's temperature is 98, the patient had a T-max of 102, blood pressure is 118/75, respiratory rate of 18. HEENT: Unremarkable. NECK: Supple. LUNGS: Decreased breath sounds. HEART: Normal S1 and S2. ABDOMEN: Soft and nontender. LABORATORY DATA: Examination reveals a white count is down to 19,000, hemoglobin of 11. Chemistries reveals a BUN of 8, creatinine of 0.5. Lipase is down from 9000 to 1700. HIV is negative. Microbiology, as noted. MEDICATIONS: Review of the medications reveal the patient to be on meropenem, vancomycin ASSESSMENT AND PLAN: This is a 56-year-old with acute cholecystitis, status post open cholecystectomy; with biliary leak, status post endoscopic retrograde cholangiopancreatography and biliary stent placement. Post-procedure day #5, continue to monitor fluid collection and gallbladder fossa, status post IR-guided drainage and abdominal drainage placement. Post-procedure day #2, coagulase-negative staphylococcus in blood, most likely a contamination, chronic back pain, scoliosis with spinal stenosis, with rods and hardware placement many years ago, hypertension and hypothyroidism, history of hysterectomy, on vancomycin, meropenem. Day #8, the patient is having bowel movements, doing much better. We will follow the fever curve. She still had a temperature of 102.3 early this morning and if the fever continues, may need to add antifungal therapy. The blood cultures from the were negative and repeat blood cultures have been ordered, we are waiting for that. Dutch Saavedra MD
[2016-11-30] MEDS ORDERED: Potassium Chloride 40 mEq/30 ml LIQ UD PO ONE ×2 (17:00→22:00)
--- NOTE | 2016-11-30 21:37 | CP.PCM.PN ---
Subjective - Date & Time of Evaluation Date of Evaluation: 11/29/16 Time of Evaluation: 11:00 - Subjective Subjective: She is still having low grade fever. No nausea, no vomiting. Abdominal pain resolved. She is out of bed, sitting in chair. Objective - Vital Signs/Intake and Output Vital Signs (last 24 hours): Temp Pulse Resp BP Pulse Ox 98 F 76 18 116/76 91 L 11/30/16 16:00 11/30/16 16:00 11/30/16 16:00 11/30/16 16:00 11/30/16 16:00 Intake and Output: 11/30/16 12/01/16 18:59 06:59 Intake Total 620 Output Total 25 Balance 595 - Medications Medications: Current Medications Acetaminophen (Tylenol 325mg Tab) 975 mg PO Q8H [facility] Last Admin: 11/30/16 00:05 Dose: 975 mg Albuterol/Ipratropium (Duoneb 3 Mg/0.5 Mg (3 Ml) Ud) 3 ml IH [id number] [facility] Last Admin: 11/30/16 19:22 Dose: 3 ml Amlodipine Besylate (Norvasc) 10 mg PO DAILY [facility] Last Admin: 11/30/16 10:05 Dose: 10 mg Clonidine HCl (Catapres) 0.1 mg PO Q6 PRN PRN Reason: Diastolic blood pressure Last Admin: 11/29/16 18:03 Dose: 0.1 mg Docusate Sodium (Colace) 100 mg PO BID [facility] Last Admin: 11/30/16 17:21 Dose: Not Given Enoxaparin Sodium (Lovenox) 40 mg SC DAILY [facility] PRN Reason: Protocol Last Admin: 11/30/16 10:05 Dose: 40 mg Famotidine (Pepcid) 20 mg PO 1000,2200 [facility] Last Admin: 11/30/16 21:09 Dose: 20 mg Meropenem 1g/NS 100mL IVPB (Meropenem 1g/Ns 100ml Ivpb) 1 gm in 100 mls @ 100 mls/hr IVPB Q8 [facility] PRN Reason: Protocol Stop: 12/02/16 11:16 Last Admin: 11/30/16 21:09 Dose: 100 mls/hr Vancomycin HCl (Vancomycin 1gm) 1 gm in 250 mls @ 167 mls/hr IVPB Q12H [facility] PRN Reason: Protocol Stop: 12/02/16 11:16 Last Admin: 11/30/16 12:12 Dose: 167 mls/hr Sodium Chloride (Sodium Chloride 0.9%) 1,000 mls @ 50 mls/hr IV .Q20H [facility] Levothyroxine Sodium (Synthroid) 125 mcg PO DAILY [facility] Last Admin: 11/30/16 10:07 Dose: 125 mcg Metoclopramide HCl (Reglan) 10 mg IVP ACHS [facility] Last Admin: 11/30/16 21:08 Dose: 10 mg Morphine Sulfate (Morphine) 2 mg IVP Q3H PRN PRN Reason: Pain, severe (8-10) Last Admin: 11/29/16 18:08 Dose: 2 mg Nebivolol Hcl [ (Bystolic] 10 Mg) 10 mg PO DAILY [facility] Last Admin: 11/30/16 10:05 Dose: 10 mg Ondansetron HCl (Zofran Inj) 4 mg IVP Q4H PRN PRN Reason: Nausea/Vomiting Last Admin: 11/30/16 10:10 Dose: 4 mg Oxycodone HCl (Oxycontin Extended Release Tab) 40 mg PO Q12 [facility] Last Admin: 11/30/16 21:09 Dose: 40 mg Oxycodone HCl (Oxycodone Immediate Release Tab) 15 mg PO Q6H PRN PRN Reason: Pain, moderate (4-7) Last Admin: 11/29/16 06:56 Dose: 15 mg Polyethylene Glycol (Miralax) 17 gm PO DAILY [facility] Last Admin: 11/30/16 10:05 Dose: 17 gm Potassium Chloride (Potassium Chloride Oral Soln) 40 meq PO ONCE ONE Stop: 11/30/16 22:01 Last Admin: 11/30/16 21:09 Dose: 40 meq - Labs Labs: 11/30/16 10:10 11/30/16 10:10 PT 13.3 Seconds (9.9-11.8) H 11/25/16 08:40 INR 1.23 (0.93-1.08) H 11/25/16 08:40 APTT 29.5 Seconds (23.7-30.8) 11/18/16 04:25 - Constitutional Appears: Chronically Ill - Head Exam Head Exam: ATRAUMATIC, NORMAL INSPECTION, NORMOCEPHALIC - Eye Exam Eye Exam: Normal appearance - ENT Exam ENT Exam: Mucous Membranes Moist - Neck Exam Neck Exam: Normal Inspection - Respiratory Exam Respiratory Exam: Clear to Ausculation Bilateral - Cardiovascular Exam Cardiovascular Exam: REGULAR RHYTHM, +S1, +S2 - GI/Abdominal Exam GI & Abdominal Exam: Soft, Normal Bowel Sounds - Back Exam Back Exam: CVA tenderness (L) - Neurological Exam Neurological Exam: Alert, Awake, Oriented x3 - Skin Skin Exam: Normal Color, Warm Assessment and Plan - Assessment and Plan (Free Text) Assessment: 1. Sepsis 2. S/P cholecystectomy 3. s/p Biliary laek 4. Low grade fever 5. Leukocytosis 6. Anemia Plan : leukocytosis resolving. On IV antibiotics- vanco, natividad. Low grade fever. ID following. Hb/hct stable. synthyroid 125 mcgm. Continue duonebs. catapress prn. DVT prophylaxis with lovenox 30 mg daily.
[2016-12-01] MEDS: Albuterol-Ipratrop 3 mg / 0.5 (3 ml) UD IH SCH ×4 (01:21→19:51)
[2016-12-01] MEDS: Meropenem 1g/NS 100mL IVPB 1 GM/100 ML PIGGYBACK IVPB SCH ×3 (05:39→22:16)
--- NOTE | 2016-12-01 08:19 | CP.PCM.PN ---
Subjective - Date & Time of Evaluation Date of Evaluation: 12/01/16 Time of Evaluation: 08:15 - Subjective Subjective: General Surgery Progress Note for Dr. Sandhu Patient seen and examined at bedside. No acute event overnight. Afebrile for 24 hrs. Patient resting in bed comfortably. Patient having BMs and flatus. BHARGAV had 50 cc of output and IR drain 0 cc overnight. Surgical site clean, dry, and intact. Denies fever/chills, cp, sob, abd pain, n/v/d. Tolerating diet. Objective - Vital Signs/Intake and Output Vital Signs (last 24 hours): Temp Pulse Resp BP Pulse Ox 98.0 F 86 18 152/90 H 97 12/01/16 07:00 12/01/16 07:00 12/01/16 07:00 12/01/16 07:00 12/01/16 07:00 Intake and Output: 12/01/16 12/01/16 06:59 18:59 Intake Total 860 Output Total 55 Balance 805 - Medications Medications: Current Medications Acetaminophen (Tylenol 325mg Tab) 975 mg PO Q8H [facility]PL[facility] BY [facility] Last Admin: 12/01/16 07:23 Dose: Not Given Albuterol/Ipratropium (Duoneb 3 Mg/0.5 Mg (3 Ml) Ud) 3 ml IH [id number] [facility]PLACED [facility] Last Admin: 12/01/16 07:38 Dose: 3 ml Amlodipine Besylate (Norvasc) 10 mg PO DAILY [facility] Last Admin: 11/30/16 10:05 Dose: 10 mg Clonidine HCl (Catapres) 0.1 mg PO Q6 PRN PRN Reason: Diastolic blood pressure Last Admin: 11/29/16 18:03 Dose: 0.1 mg Docusate Sodium (Colace) 100 mg PO BID [facility] Last Admin: 11/30/16 17:21 Dose: Not Given Enoxaparin Sodium (Lovenox) 40 mg SC DAILY [facility] PRN Reason: Protocol Last Admin: 11/30/16 10:05 Dose: 40 mg Famotidine (Pepcid) 20 mg PO 1000,2200 [facility] Last Admin: 11/30/16 21:09 Dose: 20 mg Meropenem 1g/NS 100mL IVPB (Meropenem 1g/Ns 100ml Ivpb) 1 gm in 100 mls @ 100 mls/hr IVPB Q8 [facility] PRN Reason: Protocol Stop: 12/02/16 11:16 Last Admin: 12/01/16 05:39 Dose: 100 mls/hr Vancomycin HCl (Vancomycin 1gm) 1 gm in 250 mls @ 167 mls/hr IVPB Q12H [facility] PRN Reason: Protocol Stop: 12/02/16 11:16 Last Admin: 11/30/16 22:34 Dose: 167 mls/hr Sodium Chloride (Sodium Chloride 0.9%) 1,000 mls @ 50 mls/hr IV .Q20H [facility] Last Admin: 12/01/16 08:14 Dose: 50 mls/hr Levothyroxine Sodium (Synthroid) 125 mcg PO DAILY [facility] Last Admin: 11/30/16 10:07 Dose: 125 mcg Metoclopramide HCl (Reglan) 10 mg IVP ACHS [facility] Last Admin: 11/30/16 21:08 Dose: 10 mg Morphine Sulfate (Morphine) 2 mg IVP Q3H PRN PRN Reason: Pain, severe (8-10) Last Admin: 11/29/16 18:08 Dose: 2 mg Nebivolol Hcl [ (Bystolic] 10 Mg) 10 mg PO DAILY [facility] Last Admin: 11/30/16 10:05 Dose: 10 mg Ondansetron HCl (Zofran Inj) 4 mg IVP Q4H PRN PRN Reason: Nausea/Vomiting Last Admin: 12/01/16 01:46 Dose: 4 mg Oxycodone HCl (Oxycontin Extended Release Tab) 40 mg PO Q12 [facility] Last Admin: 11/30/16 21:09 Dose: 40 mg Oxycodone HCl (Oxycodone Immediate Release Tab) 15 mg PO Q6H PRN PRN Reason: Pain, moderate (4-7) Last Admin: 11/29/16 06:56 Dose: 15 mg Polyethylene Glycol (Miralax) 17 gm PO DAILY [facility] Last Admin: 11/30/16 10:05 Dose: 17 gm - Labs Labs: 11/30/16 10:10 11/30/16 10:10 PT 13.3 Seconds (9.9-11.8) H 11/25/16 08:40 INR 1.23 (0.93-1.08) H 11/25/16 08:40 APTT 29.5 Seconds (23.7-30.8) 11/18/16 04:25 - Constitutional Appears: No Acute Distress - Head Exam Head Exam: ATRAUMATIC, NORMOCEPHALIC - Eye Exam Eye Exam: Normal appearance - ENT Exam ENT Exam: Mucous Membranes Moist - Respiratory Exam Respiratory Exam: NORMAL BREATHING PATTERN - Cardiovascular Exam Cardiovascular Exam: REGULAR RHYTHM - GI/Abdominal Exam GI & Abdominal Exam: Soft. absent: Firm, Guarding, Tenderness, Rebound - Extremities Exam Extremities Exam: Normal Capillary Refill - Neurological Exam Neurological Exam: Alert, Awake, Oriented x3 - Psychiatric Exam Psychiatric exam: Normal Affect, Normal Mood - Skin Skin Exam: Dry, Intact, Normal Color, Warm Assessment and Plan - Assessment and Plan (Free Text) Plan: 56 F s/p laparoscopic cholecystectomy converted to open POD#13 -Continue to monitor drain output -Drains will be removed as outpatient -Continue Abx as per ID -GI recommendations appreciated -Anti-pyretic prn -Will DW Dr. Edson Kaminski PGY1
[2016-12-01 09:43] LABS: BLOOD UREA NITROGEN 8 mg/dL (7-21); CALCIUM 8.3 mg/dL (8.4-10.5); CARBON DIOXIDE 33 mmol/L (21-33); CHLORIDE 100 mmol/L (98-107); GFR AFRICAN-AMERICAN > 60; GLUCOSE,RANDOM 112 mg/dL (70-110); POTASSIUM 3.7 mmol/L (3.6-5.0); SODIUM 139 mmol/L (132-148)
[2016-12-01] MEDS: POLYETHYLENE GLYCOL 3350 17 GM/Dose PACKET PO SCH (10:14)
[2016-12-01] MEDS: oxyCODONE 20 mg ER Tab (oxyCONTIN) PO SCH ×3 (10:14→22:23)
[2016-12-01] MEDS: Levothyroxine 125 MCG TAB PO SCH (10:15)
[2016-12-01] MEDS: Vancomycin 1gm in NS 250ml 1 GM/250 ML BAG IVPB SCH (10:17)
[2016-12-01] MEDS: Enoxaparin 40 mg Syringe SC SCH (10:17)
[2016-12-01] MEDS: NEBIVOLOL HCL 10 MG PO SCH (10:18)
--- NOTE | 2016-12-01 10:36 | PN ---
DATE: 12/01/2016 SUBJECTIVE: The patient has no complaints of any chest pain. No shortness of breath. No headaches. The patient did not have a fever today. PHYSICAL EXAMINATION: VITAL SIGNS: Temperature is 98, pulse of 86, blood pressure is 152/90, and respirations are 18. GENERAL: The patient is lying in bed, flat, comfortable. HEENT: No oral lesion. Anicteric sclerae. Moist mucosa. NECK: No JVD, adenopathy, or thyromegaly. CARDIOVASCULAR: S1 and S2, regular. No murmurs, rubs, or gallops. LUNGS: Clear to auscultation bilaterally. No wheeze, rales, or rhonchi. ABDOMEN: Bowel sounds are positive, soft, nontender and nondistended. EXTREMITIES: No cyanosis, clubbing or edema. LABORATORY DATA: White count of 7,5, hemoglobin 10.8, and potassium is 2.8. ASSESSMENT: 1. Hypokalemia. 2. Right lower lobe pneumonia possible acquired. 3. Sepsis. 4. Fever, resolved. 5. Hypothyroidism. 6. Hypertension. 7. Status post biliary stent placement and drainage of abscess. PLAN: The patient had a chest x-ray that I ordered yesterday that shows right lower lobe pneumonia. The patient is being followed by Dr. Saavedra. The patient will most likely need changes in her antibiotics. The patient does have a drain in place and being followed by surgery. The patient is on Lovenox for DVT prophylaxis. She is on Norvasc for hypertension. She is going to continue with IV fluids. I will discontinue the patient's IV fluids at this time because she is eating and drinking. She has been started on vancomycin. She was given potassium replacements. Repeat potassium is ordered for today. Juan Rosales MD
[2016-12-01 16:15] LABS: URINE BILIRUBIN NEGATIVE (NEGATIVE); URINE BLOOD TRACE-INTACT (NEGATIVE); URINE GLUCOSE (UA) NEGATIVE (NEGATIVE); URINE KETONE NEGATIVE (NEGATIVE); URINE LEUKOCYTE ESTERASE NEGATIVE Leu/uL (NEGATIVE); URINE PROTEIN NEGATIVE mg/dL (<30 mg/dL); URINE UROBILINOGEN 0.2 E.U./dL (<1 E.U./dL)
[2016-12-01 16:17] LABS: URINE APPEARANCE CLEAR (CLEAR); URINE COLOR STRAW (YELLOW)
[2016-12-01 16:41] LABS: URINE AMORPHOUS SEDIMENT SMALL; URINE BACTERIA SMALL (NEG); URINE EPITHELIAL CELLS 0 - 2 /hpf (0-5); URINE RBC 0 - 2 /hpf (0-2); URINE WBC NEGATIVE /hpf (0-6)
--- NOTE | 2016-12-01 23:48 | PN ---
DATE: 12/01/2016 SUBJECTIVE: The patient is in bed, no acute distress, nontoxic, improving. PHYSICAL EXAMINATION VITAL SIGNS: Temperature is 98, blood pressure is 130/80, respiratory rate of 18, heart rate of 76. HEENT: Unremarkable. NECK: Supple. LUNGS: Decreased breath sounds. HEART: Normal S1 and S2. ABDOMINAL: Soft, nontender. LABORATORY DATA: Reveals a white count of 7.5, hemoglobin of 10; platelets of 412. Coagulation is noted and blood gases are noted. Chemistry reveals a BUN of 8, creatinine of 0.5. Amylase and lipase is noted. Microbiology reveals the patient has blood cultures are negative and C. diff antigen and toxin are negative. There is yeast in the body fluid culture. Chest x-ray from yesterday is reviewed. Right lower lobe pneumonia is noted. Review of orders reveals the patient is on meropenem, vancomycin. The patient's last procalcitonin is 0.31. ASSESSMENT AND PLAN: This is a 56-year-old female with acute cholecystitis, status post open cholecystectomy with biliary leak, status post endoscopic retrograde cholangiopancreatography, biliary stent placement, post-procedure day #6 and monitored fluid collection, and gallbladder fossa, status post IR-guided drainage, abdominal drainage placement, post-procedure day #3. Coagulase-negative staphylococcus in blood, most consistent with a contamination from the original culture, with the patient with history of scoliosis and spinal stenosis with rods and hardware in place, hypertension, hypothyroidism, history of hysterectomy, on vancomycin, meropenem day #8, now afebrile, chest x-ray as noted, the yeast is noted. X-ray is probably just lagging behind, but we will order a new procalcitonin; I doubt pneumonia vancomycin and meropenem therapy and we will add Diflucan because of the yeast in the body fluid. Otherwise, the patient is doing well, afebrile,feeling better, moving her bowel movements. Dutch Saavedra MD
[2016-12-02] MEDS: Vancomycin 1gm in NS 250ml 1 GM/250 ML BAG IVPB SCH (00:03)
[2016-12-02] MEDS: Albuterol-Ipratrop 3 mg / 0.5 (3 ml) UD IH SCH ×3 (01:52→13:34)
[2016-12-02 02:56] VITALS: RESP 20; O2SAT 94
[2016-12-02] MEDS: Meropenem 1g/NS 100mL IVPB 1 GM/100 ML PIGGYBACK IVPB SCH (05:16)
[2016-12-02] MEDS: oxyCODONE 15 mg Immediate Release Tab PO PRN (06:51)
[2016-12-02 06:52] LABS: MEAN CELL VOLUME 85.4 fl (80.0-105.0); MEAN CORPUSCULAR HEMOGLOBIN 26.6 pg (25.0-35.0); MEAN CORPUSCULAR HGB CONC 31.1 g/dl (31.0-37.0); MEAN PLATELET VOLUME 9.2 fl (7.0-11.0); RED CELL DISTRIBUTION WIDTH 15.8 % (11.5-14.5); WHITE BLOOD COUNT 9.3 10^3/ul (4.5-11.0)
[2016-12-02 07:05] LABS: ALB/GLOB RATIO 0.8 (1.1-1.8); ALKALINE PHOSPHATASE 265 U/L (38-126); ALT/SGPT 52 U/L (7-56); AST/SGOT 77 U/L (14-36); BILIRUBIN,TOTAL 0.3 mg/dL (0.2-1.3); BLOOD UREA NITROGEN 8 mg/dL (7-21); CALCIUM 8.4 mg/dL (8.4-10.5); CARBON DIOXIDE 33 mmol/L (21-33); CHLORIDE 102 mmol/L (98-107); GFR AFRICAN-AMERICAN > 60; GLUCOSE,RANDOM 86 mg/dL (70-110); POTASSIUM 3.9 mmol/L (3.6-5.0); SODIUM 141 mmol/L (132-148); TOTAL PROTEIN 5.8 g/dL (5.8-8.3)
[2016-12-02 07:52] VITALS: PULSE 75; TEMP 98.7
[2016-12-02] MEDS: NEBIVOLOL HCL 10 MG PO SCH (09:11)
[2016-12-02] MEDS: Levothyroxine 125 MCG TAB PO SCH (09:12)
[2016-12-02] MEDS: oxyCODONE 20 mg ER Tab (oxyCONTIN) PO SCH (09:12)
[2016-12-02] MEDS: POLYETHYLENE GLYCOL 3350 17 GM/Dose PACKET PO SCH (09:12)
[2016-12-02] MEDS: Enoxaparin 40 mg Syringe SC SCH (09:13)
[2016-12-02 09:14] VITALS: BP 140/90
--- NOTE | 2016-12-02 13:08 | CP.PCM.PN ---
Subjective - Date & Time of Evaluation Date of Evaluation: 12/02/16 Time of Evaluation: 13:05 - Subjective Subjective: Surgery note for Dr. Sandhu 56F seen and examined at bedside. Patient states pain is controlled, denies nausea, vomiting, tolerating regular diet. Objective - Vital Signs/Intake and Output Vital Signs (last 24 hours): Temp Pulse Resp BP Pulse Ox 98.7 F 75 20 140/90 94 L 12/02/16 07:30 12/02/16 07:30 12/02/16 07:30 12/02/16 09:13 12/02/16 07:30 Intake and Output: 12/02/16 12/02/16 06:59 18:59 Intake Total 360 Output Total 20 15 Balance 340 -15 - Medications Medications: Current Medications Acetaminophen (Tylenol 325mg Tab) 975 mg PO Q8H [facility] Last Admin: 12/01/16 07:23 Dose: Not Given Albuterol/Ipratropium (Duoneb 3 Mg/0.5 Mg (3 Ml) Ud) 3 ml IH [id number] [facility] Last Admin: 12/02/16 08:31 Dose: 3 ml Amlodipine Besylate (Norvasc) 10 mg PO DAILY [facility] Last Admin: 12/02/16 09:13 Dose: 10 mg Amoxicillin/Clavulanate Potassium (Augmentin 875 Mg-125 Mg Tab) 1 tab PO Q12 [facility] PRN Reason: Protocol Clonidine HCl (Catapres) 0.1 mg PO Q6 PRN PRN Reason: Diastolic blood pressure Last Admin: 11/29/16 18:03 Dose: 0.1 mg Docusate Sodium (Colace) 100 mg PO BID [facility] Last Admin: 12/02/16 09:12 Dose: 100 mg Enoxaparin Sodium (Lovenox) 40 mg SC DAILY [facility] PRN Reason: Protocol Last Admin: 12/02/16 09:13 Dose: 40 mg Famotidine (Pepcid) 20 mg PO 1000,2200 [facility] Last Admin: 12/02/16 09:12 Dose: 20 mg Fluconazole (Diflucan) 200 mg PO DAILY [facility] PRN Reason: Protocol Stop: 12/10/16 10:43 Last Admin: 12/02/16 09:12 Dose: 200 mg Levothyroxine Sodium (Synthroid) 125 mcg PO DAILY [facility] Last Admin: 12/02/16 09:12 Dose: 125 mcg Metoclopramide HCl (Reglan) 10 mg IVP ACHS [facility] Last Admin: 12/02/16 11:35 Dose: Not Given Morphine Sulfate (Morphine) 2 mg IVP Q3H PRN PRN Reason: Pain, severe (8-10) Last Admin: 11/29/16 18:08 Dose: 2 mg Nebivolol Hcl [ (Bystolic] 10 Mg) 10 mg PO DAILY [facility] Last Admin: 12/02/16 09:11 Dose: 10 mg Ondansetron HCl (Zofran Inj) 4 mg IVP Q4H PRN PRN Reason: Nausea/Vomiting Last Admin: 12/01/16 01:46 Dose: 4 mg Oxycodone HCl (Oxycontin Extended Release Tab) 40 mg PO Q12 [facility] Last Admin: 12/02/16 09:12 Dose: 40 mg Oxycodone HCl (Oxycodone Immediate Release Tab) 15 mg PO Q6H PRN PRN Reason: Pain, moderate (4-7) Last Admin: 12/02/16 06:51 Dose: 15 mg Polyethylene Glycol (Miralax) 17 gm PO DAILY [facility] Last Admin: 12/02/16 09:12 Dose: 17 gm - Labs Labs: 12/02/16 06:39 12/02/16 06:39 PT 13.3 Seconds (9.9-11.8) H 11/25/16 08:40 INR 1.23 (0.93-1.08) H 11/25/16 08:40 APTT 29.5 Seconds (23.7-30.8) 11/18/16 04:25 - Constitutional Appears: Non-toxic, No Acute Distress - Respiratory Exam Respiratory Exam: Clear to Ausculation Bilateral, NORMAL BREATHING PATTERN - Cardiovascular Exam Cardiovascular Exam: REGULAR RHYTHM, +S1, +S2 - GI/Abdominal Exam GI & Abdominal Exam: Soft. absent: Distended, Firm, Guarding, Rigid, Tenderness , Rebound Additional comments: IR drain and francisco drain- bilious output Francisco drain slowing down incisions CDI, joel in place - Neurological Exam Neurological Exam: Alert, Awake - Skin Skin Exam: Dry, Intact, Normal Color, Warm Assessment and Plan - Assessment and Plan (Free Text) Assessment: 56 F s/p laparoscopic cholecystectomy converted to open POD#14 Plan: - continue to monitor drains - remove francisco drain - clear for discharge from surgery standpoint with IR drain in place Discussed with Dr. Edson Pablo, PGY2
[2016-12-02] MEDS ORDERED: oxyCODONE 10 mg ER Tab (oxyCONTIN) PO SCH (14:12)
--- NOTE | 2016-12-02 16:04 | CP.PCM.PN ---
Subjective - Date & Time of Evaluation Date of Evaluation: 12/02/16 Time of Evaluation: 12:05 - Subjective Subjective: Feels comfortable, no fevers. Objective - Vital Signs/Intake and Output Vital Signs (last 24 hours): Temp Pulse Resp BP Pulse Ox 98.7 F 75 20 140/90 94 L 12/02/16 07:30 12/02/16 07:30 12/02/16 07:30 12/02/16 09:13 12/02/16 07:30 Intake and Output: 12/02/16 12/02/16 06:59 18:59 Intake Total 360 Output Total 20 15 Balance 340 -15 - Medications Medications: Current Medications Acetaminophen (Tylenol 325mg Tab) 975 mg PO Q8H [facility] Last Admin: 12/01/16 07:23 Dose: Not Given Albuterol/Ipratropium (Duoneb 3 Mg/0.5 Mg (3 Ml) Ud) 3 ml IH [id number] [facility] Last Admin: 12/02/16 08:31 Dose: 3 ml Amlodipine Besylate (Norvasc) 10 mg PO DAILY [facility] Last Admin: 12/02/16 09:13 Dose: 10 mg Clonidine HCl (Catapres) 0.1 mg PO Q6 PRN PRN Reason: Diastolic blood pressure Last Admin: 11/29/16 18:03 Dose: 0.1 mg Docusate Sodium (Colace) 100 mg PO BID [facility] Last Admin: 12/02/16 09:12 Dose: 100 mg Enoxaparin Sodium (Lovenox) 40 mg SC DAILY [facility] PRN Reason: Protocol Last Admin: 12/02/16 09:13 Dose: 40 mg Famotidine (Pepcid) 20 mg PO 1000,2200 [facility] Last Admin: 12/02/16 09:12 Dose: 20 mg Fluconazole (Diflucan) 200 mg PO DAILY [facility] PRN Reason: Protocol Stop: 12/10/16 10:43 Last Admin: 12/02/16 09:12 Dose: 200 mg Meropenem 1g/NS 100mL IVPB (Meropenem 1g/Ns 100ml Ivpb) 1 gm in 100 mls @ 100 mls/hr IVPB Q8 [facility] PRN Reason: Protocol Stop: 12/02/16 11:16 Last Admin: 12/02/16 05:16 Dose: 100 mls/hr Levothyroxine Sodium (Synthroid) 125 mcg PO DAILY [facility] Last Admin: 12/02/16 09:12 Dose: 125 mcg Metoclopramide HCl (Reglan) 10 mg IVP ACHS [facility] Last Admin: 12/02/16 08:18 Dose: Not Given Morphine Sulfate (Morphine) 2 mg IVP Q3H PRN PRN Reason: Pain, severe (8-10) Last Admin: 11/29/16 18:08 Dose: 2 mg Nebivolol Hcl [ (Bystolic] 10 Mg) 10 mg PO DAILY [facility] Last Admin: 12/02/16 09:11 Dose: 10 mg Ondansetron HCl (Zofran Inj) 4 mg IVP Q4H PRN PRN Reason: Nausea/Vomiting Last Admin: 12/01/16 01:46 Dose: 4 mg Oxycodone HCl (Oxycontin Extended Release Tab) 40 mg PO Q12 [facility] Last Admin: 12/02/16 09:12 Dose: 40 mg Oxycodone HCl (Oxycodone Immediate Release Tab) 15 mg PO Q6H PRN PRN Reason: Pain, moderate (4-7) Last Admin: 12/02/16 06:51 Dose: 15 mg Polyethylene Glycol (Miralax) 17 gm PO DAILY [facility] Last Admin: 12/02/16 09:12 Dose: 17 gm - Labs Labs: 12/02/16 06:39 12/02/16 06:39 PT 13.3 Seconds (9.9-11.8) H 11/25/16 08:40 INR 1.23 (0.93-1.08) H 11/25/16 08:40 APTT 29.5 Seconds (23.7-30.8) 11/18/16 04:25 - Constitutional Appears: Non-toxic, No Acute Distress - Head Exam Head Exam: NORMAL INSPECTION - ENT Exam ENT Exam: Mucous Membranes Moist - Neck Exam Neck Exam: absent: Meningismus - Respiratory Exam Respiratory Exam: Decreased Breath Sounds - Cardiovascular Exam Cardiovascular Exam: +S1, +S2 - GI/Abdominal Exam GI & Abdominal Exam: Soft. absent: Tenderness Assessment and Plan - Assessment and Plan (Free Text) Plan: Assessment acute cholecystitis S/P open cholecystectomy, now with biliary leak S/P ERCP and biliary stent placement POD #7; continues to have marked fluid collection in the gallbladder fossa S/P IR-guided drainage and abdominal drain placement POD #4 - bile fluid growing C. dubliniensis Coagulase negative staph in blood cx, probably contamination chronic back pain and scoliosis and spinal stenosis S/P rods and hardware placement many years ago HTN hypothyroidism S/P hysterectomy Plan on Vancomycin and Merrem day 10 and diflucan; continue to trend WBC count (has started to decrease after the IR-guided procedure yesterday) -when ready for discharge, the patient can be switched to PO Augmentin and PO Diflucan for another 7-10 days with outpatient follow up with Surgery
[2016-12-02] MEDS ORDERED: Amoxicillin-Clav 875-125 mg Tab PO SCH ×2 (22:00)
--- NOTE | 2016-12-03 08:25 | PN ---
DATE: 12/02/2016 SUBJECTIVE: A 56-year-old white female status post laparoscopic cholecystectomy status post biliary leak, status post ERCP with stent placement, pancreatitis. Postoperative biliary leak abscess drain by Dr. Dillon Valdez. The patient's white count had been over 30,000, it has dropped down to 9.3. H and H is stable. Potassium is of 3.9 with potassium replacement. The patient is tolerating diet well. She is ambulating without assistance. She is using the bathroom. Bowel sounds are normoactive. Abdomen is soft. Chest is clear to auscultation and percussion. The patient did have some pneumonia at the right base, which seems to be resolving. The patient is afebrile. The plan is to switch to p.o. antibiotics if okay by Dr. Saavedra and discharge home in the next 24 to 48 hours. Dom Dover MD
== END 2016-12-02 19:02 | disposition home or self-care (01) | DRG 853 ==
LOC: ED 03:14 → ERH 06:59 → 2RNO 22:53 → OBSVTOIN 11-20 17:04 → 5RNO 11-21 18:43
PROVIDERS: ADMIT Internal Medicine; ATTEND Internal Medicine
PROC: 0FT40ZZ Resection of Gallbladder, Open Approach (ICD-10-PCS; principal; 2016-11-18 19:00)
PROC: 0FJ44ZZ Inspection of Gallbladder, Percutaneous Endoscopic Approach (ICD-10-PCS; 2016-11-18 19:00)
PROC: 0F9 Hepatobiliary System and Pancreas, Drainage (ICD-10-PCS; 2016-11-25)
PROC: 0W9G30Z Drainage of Peritoneal Cavity with Drainage Device, Percutaneous Approach (ICD-10-PCS; 2016-11-28)
PROC: BW20ZZZ Computerized Tomography (CT Scan) of Abdomen (ICD-10-PCS; 2016-11-28)
DX: A41.9 Sepsis, unspecified organism (principal); J18.9 Pneumonia, unspecified organism; K65.1 Peritoneal abscess; K85.90 Acute pancreatitis without necrosis or infection, unspecified; K80.00 Calculus of gallbladder with acute cholecystitis without obstruction; J98.11 Atelectasis; I10 Essential (primary) hypertension; E03.9 Hypothyroidism, unspecified; D64.9 Anemia, unspecified; E66.9 Obesity, unspecified; E87.6 Hypokalemia; F17.200 Nicotine dependence, unspecified, uncomplicated; G89.4 Chronic pain syndrome; M54.9 Dorsalgia, unspecified; M41.9 Scoliosis, unspecified; M48.00 Spinal stenosis, site unspecified; R33.9 Retention of urine, unspecified; Y84.8 Other medical procedures as the cause of abnormal reaction of the patient, or of later complication, without mention of misadventure at the time of the procedure; Z53.31 Laparoscopic surgical procedure converted to open procedure; Z79.899 Other long term (current) drug therapy; Z80.0 Family history of malignant neoplasm of digestive organs; Z90.710 Acquired absence of both cervix and uterus; R74.0 Nonspecific elevation of levels of transaminase and lactic acid dehydrogenase [LDH]; Z68.35 Body mass index [BMI] 35.0-35.9, adult; M25.512 Pain in left shoulder